=== PATIENT | female | born 1980 | race Caucasian/White ===

== ENCOUNTER 2016-06-15 16:22 | Emergency (ER) | payer OTHER ==
[2016-06-15] MEDS ORDERED: ONDANSETRON 4 MG TAB.RAPDIS PO ONE (17:47)
--- NOTE | 2016-06-15 17:48 | ER Document Report ---
ED Medical Screen (RME) - General Chief Complaint: Dental Injury Stated Complaint: HEADACHE AND MOUTH PAIN Mode of Arrival: Wheelchair Information source: Patient Notes: Patient complains of left-sided facial pain due to a broken tooth. Patient complains of headache, dizziness with nausea and vomiting 2 episodes. Headache pain started suddenly yesterday. Patient has been taking an antibiotic to treat a sinus infection as well as pain medicine given to her from her dentist. hx: Crohn's TRAVEL OUTSIDE OF THE [place] IN LAST 30 DAYS: No - Related Data Allergies/Adverse Reactions: doxycycline [Doxycycline] Allergy (Severe, Verified 09/23/15 11:55) Anaphylaxis ciprofloxacin [From Cipro] Allergy (Mild, Verified 09/23/15 11:55) Hives ciprofloxacin HCl [From Cipro] Allergy (Mild, Verified 09/23/15 11:55) Hives levofloxacin [From Levaquin] Allergy (Mild, Verified 09/23/15 11:55) muscle cramps Metronidazole HCl [From Flagyl] Allergy (Mild, Verified 09/23/15 11:55) VOMITING sulfamethoxazole [From Bactrim] Allergy (Mild, Verified 09/23/15 11:55) Hives trimethoprim [From Bactrim] Allergy (Mild, Verified 09/23/15 11:55) Hives metronidazole [Metronidazole] Adverse Reaction (Mild, Verified 09/23/15 11:55) Nausea Past Medical History - Social History Family history: Arthritis, CAD, CVA, DM, Hyperlipidemia, Hypertension Pulmonary Medical History: Reports: Hx Asthma, Hx Bronchitis Denies: Hx Tuberculosis Neurological Medical History: Reports: Hx Migraine Renal/ Medical History: Reports: Hx Ovarian Cysts GI Medical History: Reports: Hx Crohn's Disease, Hx Gastritis, Hx Gastroesophageal Reflux Disease, Hx Hiatal Hernia, Hx Irritable Bowel Musculoskeltal Medical History: Reports Hx Fibromyalgia Psychiatric Medical History: Reports: Hx Anxiety, Hx Depression Infectious Medical History: Reports: Hx C-Diff Past Surgical History: Reports: Hx Appendectomy - 02/16/2015, Hx Nose Surgery - 2X sinus, Hx Oral Surgery, Hx Tonsillectomy - Immunizations Immunizations up to date: Yes Hx Diphtheria, Pertussis, Tetanus Vaccination: Yes - already received Physical Exam - Vital signs Vitals: Temp Pulse Resp BP Pulse Ox 97.5 F 99 20 115/68 100 06/15/16 16:38 06/15/16 16:38 06/15/16 16:38 06/15/16 16:38 06/15/16 16:38 - Neurological Cognition: Normal Carrie Coma Scale Eye Opening: Spontaneous Notrees Coma Scale Verbal: Oriented Carrie Coma Scale Motor: Obeys Commands Carrie Coma Scale Total: 15 Course - Vital Signs Vital signs: Temp Pulse Resp BP Pulse Ox 97.5 F 99 20 115/68 100 06/15/16 16:38 06/15/16 16:38 06/15/16 16:38 06/15/16 16:38 06/15/16 16:38
[2016-06-15 18:54] LABS: ABSOLUTE BASOPHILS # (AUTO) 0.1 10^3/uL (0.0-0.2); ABSOLUTE LYMPHOCYTES (AUTO) 1.5 10^3/uL (0.5-4.7); ABSOLUTE MONOCYTES (AUTO) 0.6 10^3/uL (0.1-1.4); ABSOLUTE NEUT (AUTO) 12.7 10^3/uL (1.7-8.2); BASOPHILS % (AUTO) 0.4 % (0-2); EOSINOPHILS % (AUTO) 0.2 % (0-6); HEMATOCRIT 35.1 % (36.0-47.0); HEMOGLOBIN 11.5 g/dL (12.0-15.5); HGB HCT DIFFERENCE -0.6; LYMPHOCYTES % (AUTO) 9.8 % (13-45); MEAN CORPUSCULAR HEMOGLOBIN 22.1 pg (27.0-33.4); MEAN CORPUSCULAR HGB CONC 32.6 g/dL (32.0-36.0); MEAN CORPUSCULAR VOLUME 68 fl (80-97); RED BLOOD COUNT 5.18 10^6/uL (3.72-5.28); RED CELL DISTRIBUTION WIDTH 16.1 % (11.5-14.0); SEGMENTED NEUTROPHILS % (AUTO) 85.6 % (42-78); WHITE BLOOD COUNT 14.8 10^3/uL (4.0-10.5)
[2016-06-15 19:10] LABS: ALANINE AMINOTRANSFERASE 99 U/L (9-52); ALBUMIN 4.6 g/dL (3.5-5.0); ALKALINE PHOSPHATASE 68 U/L (38-126); ANION GAP 14 (5-19); ASPARTATE AMINO TRANSFERASE 62 U/L (14-36); BILIRUBIN,TOTAL 0.5 mg/dL (0.2-1.3); BLOOD UREA NITROGEN 12 mg/dL (7-20); CALCIUM 9.1 mg/dL (8.4-10.2); CARBON DIOXIDE 25 mmol/L (22-30); CHLORIDE 99 mmol/L (98-107); CREATININE RESULT 0.52 mg/dL (0.52-1.25); GLUCOSE 91 mg/dL (75-110); POTASSIUM 4.1 mmol/L (3.6-5.0); SODIUM 137.5 mmol/L (137-145); TOTAL PROTEIN 7.5 g/dL (6.3-8.2)
[2016-06-15] MEDS ORDERED: ONDANSETRON ODT 4 MG TAB (6 TAB/DSPK) PO PRN (23:28)
--- NOTE | 2016-06-15 23:28 | ER Document Report ---
ED General - General Chief Complaint: Head and mouth pain Stated Complaint: HEADACHE AND MOUTH PAIN Mode of Arrival: Wheelchair Notes: Patient is a 35 year old female who presents with complaint of nasal congestion , toothache, and some sinus pressure. She says that her doctor placed her on Ceftin ear for the tooth infection and sinus pressure. She says that her tooth started her more and chest pressure going into the left sinus behind her left ear. She is scheduled to see an oral surgeon her shortly to have the tooth drilled. The tooth has a piece recurrent canal which is opened up and now has her going into the tooth causing severe pain. No fevers. No vomiting. No difficulty breathing or swallowing. No facial swelling. TRAVEL OUTSIDE OF THE [place] IN LAST 30 DAYS: No - Related Data Allergies/Adverse Reactions: doxycycline [Doxycycline] Allergy (Severe, Verified 09/23/15 11:55) Anaphylaxis ciprofloxacin [From Cipro] Allergy (Mild, Verified 09/23/15 11:55) Hives ciprofloxacin HCl [From Cipro] Allergy (Mild, Verified 09/23/15 11:55) Hives levofloxacin [From Levaquin] Allergy (Mild, Verified 09/23/15 11:55) muscle cramps Metronidazole HCl [From Flagyl] Allergy (Mild, Verified 09/23/15 11:55) VOMITING sulfamethoxazole [From Bactrim] Allergy (Mild, Verified 09/23/15 11:55) Hives trimethoprim [From Bactrim] Allergy (Mild, Verified 09/23/15 11:55) Hives metronidazole [Metronidazole] Adverse Reaction (Mild, Verified 09/23/15 11:55) Nausea Past Medical History - General Information source: Patient - Social History Smoking Status: Unknown if Ever Smoked Frequency of alcohol use: None Drug Abuse: None Family History: Reviewed & Not Pertinent Patient has suicidal ideation: No Patient has homicidal ideation: No Pulmonary Medical History: Reports: Hx Asthma, Hx Bronchitis Denies: Hx Tuberculosis Neurological Medical History: Reports: Hx Migraine Renal/ Medical History: Reports: Hx Ovarian Cysts GI Medical History: Reports: Hx Crohn's Disease, Hx Gastritis, Hx Gastroesophageal Reflux Disease, Hx Hiatal Hernia, Hx Irritable Bowel Musculoskeltal Medical History: Reports Hx Fibromyalgia Psychiatric Medical History: Reports: Hx Anxiety, Hx Depression Infectious Medical History: Reports: Hx C-Diff Past Surgical History: Reports: Hx Appendectomy - 02/16/2015, Hx Nose Surgery - 2X sinus, Hx Oral Surgery, Hx Tonsillectomy - Immunizations Immunizations up to date: Yes Hx Diphtheria, Pertussis, Tetanus Vaccination: Yes - already received Hx Pneumococcal Vaccination: 02/13/13 Review of Systems - Review of Systems Notes: My Normal Review Basic REVIEW OF SYSTEMS: CONSTITUTIONAL : Denies fever, chills, or sweats. Denies recent illness. EENT: Tooth pain. Sinus pressure CARDIOVASCULAR: Denies chest pain. RESPIRATORY: Denies cough, cold, or chest congestion. Denies shortness of breath, difficulty breathing, or wheezing. GASTROINTESTINAL: Denies abdominal pain. Denies nausea, vomiting, or diarrhea. Denies constipation. MUSCULOSKELETAL: Denies neck or back pain or joint pain or swelling. SKIN: Denies rash or skin lesions. NEUROLOGICAL: Denies altered mental status or loss of consciousness. Denies headache. Denies weakness or paralysis or loss of use of either side. Denies problems with gait or speech. Denies sensory or motor loss. ALL OTHER SYSTEMS REVIEWED AND NEGATIVE. Physical Exam - Vital signs Vitals: Temp Pulse Resp BP Pulse Ox 97.5 F 99 20 115/68 100 06/15/16 16:38 06/15/16 16:38 06/15/16 16:38 06/15/16 16:38 06/15/16 16:38 - Notes Notes: General Appearance: Well nourished, alert, cooperative, no acute distress, moderate obvious discomfort. Vitals: reviewed, See vital signs table. Head: no swelling or tenderness to the head Eyes: PERRL, EOMI, Conjuctiva clear Mouth: Left upper premolar has a hole in the tooth and has some dental caries associated with it. No gingival swelling or inflammation. Throat: No tonsillar inflammation, No airway obstruction, No lymphadenopathy Neck: Supple, no neck tenderness, No thyromegaly Lungs: No wheezing, No rales, No rhonci, No accessory muscle use, good air exchange bilaterally. Heart: Normal rate, Regular rythm, No murmur, no rub Extremities: strength 5/5 in all extremities, good pulses in all extremities, no swelling or tenderness in the extremities, no edema. Skin: warm, dry, appropriate color, no rash Neuro: speech clear, oriented x 3, normal affect, responds appropriately to questions. Cranial nerves II through XII are intact. Distal sensation intact. Patient moves all extremities without difficulty. Course - Vital Signs Vital signs: Temp Pulse Resp BP Pulse Ox 98.1 F 72 16 111/71 99 06/15/16 22:52 06/15/16 22:52 06/15/16 22:52 06/15/16 22:52 06/15/16 22:52 - Laboratory Result Diagrams: 06/15/16 18:40 06/15/16 18:40 Laboratory results interpreted by me: 06/15/16 06/15/16 18:40 18:40 WBC 14.8 H Hgb 11.5 L Hct 35.1 L MCV 68 L MCH 22.1 L RDW 16.1 H Seg Neutrophils % 85.6 H Lymphocytes % 9.8 L Absolute Neutrophils 12.7 H AST 62 H ALT 99 H - Transfer of Care Notes: 06/16/16 06:25 CT scan was obtained in triage and some mild sinus disease without any air- fluid levels. Otherwise discussed negative. Will place patient back on software. I will give her pain medicine. I encourage her to follow closely with her oral surgeon to have the tooth removed. I think until the tooth is removed she will continue to have pressure into her sinuses. Patient does have a history of C. difficile and therefore informed her that if she starts having any diarrhea she must stop the antibiotic immediately. Patient currently return to ER shows a facial swelling, fevers, or feels unwell. Patient agrees with plan will be discharged home. Dictation of this chart was performed using voice recognition software; therefore, there may be some unintended grammatical errors. Discharge - Discharge Clinical Impression: Toothache, Sinus disease Headache Qualifiers: Headache type: unspecified Headache chronicity pattern: episodic headache Intractability: not intractable Qualified Code(s): R51 - Headache Condition: Good Disposition: HOME, SELF-CARE Additional Instructions: Please continue taking the Zyrtec D. Please continue the cfedinir. Please stop taking the antibiotic if you develop any diarrhea. Please follow up with your dentist as soon as possible to have your tooth removed. Please return to the ER immediately if you develop facial swelling, difficulty breathing, or difficulty swallowing. Prescriptions: Cefdinir 300 mg PO Q12 #10 capsule Ondansetron [Zofran Odt 4 mg Tablet] 1 tab PO Q4H PRN #15 tab.rapdis PRN Reason: For Nausea/Vomiting
[2016-06-15 23:50] VITALS: BP 111/71
== END 2016-06-15 23:30 | disposition home or self-care (01) ==
LOC: ER 16:22
DX: J32.9 Chronic sinusitis, unspecified (principal); K04.7 Periapical abscess without sinus; K02.9 Dental caries, unspecified; K08.89 Other specified disorders of teeth and supporting structures; R51 Headache; R09.81 Nasal congestion; J45.909 Unspecified asthma, uncomplicated; Z87.892 Personal history of anaphylaxis; Z88.1 Allergy status to other antibiotic agents; Z98.890 Other specified postprocedural states
CPT/HCPCS: 99284; 36415; 84703; 85025; 80053; 70450; S0119

== ENCOUNTER → 2016-08-20 | Outpatient (CLI) | payer MEDICAID, OTHER | LOC: RAD 16:05 | PROVIDERS: ATTEND Internal Medicine | DX: G35 Multiple sclerosis (principal) | CPT/HCPCS: 70551 ==

== ENCOUNTER → 2017-03-04 | Outpatient (CLI) | payer OTHER ==
[2017-03-04 17:58] LABS: HEMATOCRIT 38.2 % (36.0-47.0); HEMOGLOBIN 13.1 g/dL (12.0-15.5); HGB HCT DIFFERENCE 1.1; MEAN CORPUSCULAR HEMOGLOBIN 27.6 pg (27.0-33.4); MEAN CORPUSCULAR HGB CONC 34.3 g/dL (32.0-36.0); MEAN CORPUSCULAR VOLUME 81 fl (80-97); RED BLOOD COUNT 4.74 10^6/uL (3.72-5.28); RED CELL DISTRIBUTION WIDTH 14.4 % (11.5-14.0); WHITE BLOOD COUNT 13.9 10^3/uL (4.0-10.5)
[2017-03-04 18:33] LABS: ALANINE AMINOTRANSFERASE 30 U/L (9-52); ALBUMIN 4.1 g/dL (3.5-5.0); ALKALINE PHOSPHATASE 54 U/L (38-126); ANION GAP 12 (5-19); ASPARTATE AMINO TRANSFERASE 24 U/L (14-36); BILIRUBIN,DIRECT 0.3 mg/dL (0.0-0.4); BILIRUBIN,TOTAL 0.3 mg/dL (0.2-1.3); BLOOD UREA NITROGEN 12 mg/dL (7-20); CALCIUM 9.3 mg/dL (8.4-10.2); CARBON DIOXIDE 28 mmol/L (22-30); CHLORIDE 99 mmol/L (98-107); CREATININE RESULT 0.73 mg/dL (0.52-1.25); GLUCOSE 96 mg/dL (75-110); POTASSIUM 3.8 mmol/L (3.6-5.0); SODIUM 138.6 mmol/L (137-145); TOTAL PROTEIN 6.7 g/dL (6.3-8.2)
[2017-03-04 18:37] LABS: ALANINE AMINOTRANSFERASE 32 U/L (9-52); ALBUMIN 4.2 g/dL (3.5-5.0); ALKALINE PHOSPHATASE 57 U/L (38-126); ANION GAP 11 (5-19); ASPARTATE AMINO TRANSFERASE 25 U/L (14-36); BILIRUBIN,DIRECT 0.3 mg/dL (0.0-0.4); BILIRUBIN,TOTAL 0.3 mg/dL (0.2-1.3); BLOOD UREA NITROGEN 13 mg/dL (7-20); CALCIUM 9.3 mg/dL (8.4-10.2); CARBON DIOXIDE 28 mmol/L (22-30); CHLORIDE 99 mmol/L (98-107); CREATININE RESULT 0.71 mg/dL (0.52-1.25); GLUCOSE 96 mg/dL (75-110); POTASSIUM 3.8 mmol/L (3.6-5.0); SODIUM 138.4 mmol/L (137-145); TOTAL PROTEIN 6.9 g/dL (6.3-8.2)
[2017-03-04 18:38] LABS: C-REACTIVE PROTEIN < 5.0 mg/L (<10.0)
[2017-03-04 18:49] LABS: FREE T3 4.65 pg/mL (2.77-5.27)
[2017-03-04 19:02] LABS: THYROID STIMULATING HORMONE 1.25 uIU/mL (0.47-4.68)
[2017-03-07 11:24] LABS: CYCLIC CITRUL PEPTIDE IGG/A AB 5 units (0-19)
== END ==
LOC: OD 16:26
PROVIDERS: ATTEND Family Medicine
DX: M25.50 Pain in unspecified joint (principal); R53.83 Other fatigue; M79.1 Myalgia; K51.90 Ulcerative colitis, unspecified, without complications
CPT/HCPCS: 36415; 80053; 82533; 84439; 84443; 84481; 85027; 85652; 86038; 86140; 86200; 86430

== ENCOUNTER 2017-03-20 01:35 | Emergency (ER) | payer OTHER ==
[2017-03-20] MEDS ORDERED: METOCLOPRAMIDE HCL INJ/PF 10 MG/2 ML SDV IV ONE (03:00)
[2017-03-20] MEDS ORDERED: NORMAL SALINE 1000 ML 1,000 ML IV ONE (03:01)
[2017-03-20] MEDS ORDERED: DIPHENHYDRAMINE HCL 50 MG/ML VIAL IV ONE (03:01)
[2017-03-20] MEDS ORDERED: MORPHINE SULFATE 10 MG/ML INJ IV ONE (03:01)
--- NOTE | 2017-03-20 03:01 | ER Document Report ---
ED Headache - General Chief Complaint: Headache Stated Complaint: HEADACHE Time Seen by Provider: 03/20/17 02:47 Notes: Patient is a 36-year-old female comes emergency department for chief complaint of headache, she states that it began earlier today and she cannot get rid of it. She states that she actually gets frequent headaches, she gets bad headaches about twice a month including one similar to tonight. She also states that she has some sinus congestion and specifically has a plugged left ear, she states she has this constantly and she has an ENT referral for this already. Patient also states that she has known cervical spine degenerative disease and she actually is obtaining injections for this, has had an MRI for this. She denies any recent injury, denies fever, denies focal numbness or weakness. She does report 2 episodes of vomiting, photophobia, and throbbing headache. TRAVEL OUTSIDE OF THE [place] IN LAST 30 DAYS: No - Related Data Allergies/Adverse Reactions: doxycycline [Doxycycline] Allergy (Severe, Verified 09/23/15 11:55) Anaphylaxis ciprofloxacin [From Cipro] Allergy (Mild, Verified 09/23/15 11:55) Hives ciprofloxacin HCl [From Cipro] Allergy (Mild, Verified 09/23/15 11:55) Hives levofloxacin [From Levaquin] Allergy (Mild, Verified 09/23/15 11:55) muscle cramps Metronidazole HCl [From Flagyl] Allergy (Mild, Verified 09/23/15 11:55) VOMITING sulfamethoxazole [From Bactrim] Allergy (Mild, Verified 09/23/15 11:55) Hives trimethoprim [From Bactrim] Allergy (Mild, Verified 09/23/15 11:55) Hives metronidazole [Metronidazole] Adverse Reaction (Mild, Verified 09/23/15 11:55) Nausea Past Medical History - General Information source: Patient - Social History Smoking Status: Never Smoker Frequency of alcohol use: None Drug Abuse: None Lives with: Family Family History: Reviewed & Not Pertinent Patient has suicidal ideation: No Patient has homicidal ideation: No Pulmonary Medical History: Reports: Hx Asthma, Hx Bronchitis Denies: Hx Tuberculosis Neurological Medical History: Reports: Hx Migraine Renal/ Medical History: Reports: Hx Ovarian Cysts. Denies: Hx Peritoneal Dialysis GI Medical History: Reports: Hx Crohn's Disease, Hx Gastritis, Hx Gastroesophageal Reflux Disease, Hx Hiatal Hernia, Hx Irritable Bowel Musculoskeltal Medical History: Reports Hx Fibromyalgia Psychiatric Medical History: Reports: Hx Anxiety, Hx Depression Infectious Medical History: Reports: Hx C-Diff Past Surgical History: Reports: Hx Appendectomy - 02/16/2015, Hx Nose Surgery - 2X sinus, Hx Oral Surgery, Hx Tonsillectomy - Immunizations Immunizations up to date: Yes Hx Diphtheria, Pertussis, Tetanus Vaccination: Yes - already received Hx Pneumococcal Vaccination: 02/13/13 Review of Systems - Review of Systems Constitutional: No symptoms reported EENT: See HPI Cardiovascular: No symptoms reported Respiratory: No symptoms reported Gastrointestinal: No symptoms reported Genitourinary: No symptoms reported Female Genitourinary: No symptoms reported Musculoskeletal: No symptoms reported Skin: No symptoms reported Hematologic/Lymphatic: No symptoms reported Neurological/Psychological: See HPI Physical Exam - Vital signs Vitals: Temp Pulse Resp BP Pulse Ox 97.6 F 92 16 120/89 H 100 03/20/17 01:39 03/20/17 01:39 03/20/17 01:39 03/20/17 01:39 03/20/17 01:39 Interpretation: Normal - General General appearance: Alert, Other - Patient appears mildly uncomfortable but is not in severe distress - HEENT Head: Normocephalic, Atraumatic Eyes: Normal Conjunctiva: Normal Extraocular movements intact: Yes Eyelashes: Normal Pupils: PERRL Ears: Normal External canal: Normal Tympanic membrane: Normal Sinus: Normal Nasal: Normal Mouth/Lips: Normal Mucous membranes: Normal Pharynx: Normal Neck: Normal. No: Anterior cervical chain, Meningismus - Respiratory Respiratory status: No respiratory distress Chest status: Nontender Breath sounds: Normal Chest palpation: Normal - Cardiovascular Rhythm: Regular Heart sounds: Normal auscultation Murmur: No - Abdominal Inspection: Normal Distension: No distension Bowel sounds: Normal Tenderness: Nontender Organomegaly: No organomegaly - Back Back: Normal, Nontender - Extremities General upper extremity: Normal inspection, Nontender, Normal color, Normal ROM , Normal temperature General lower extremity: Normal inspection, Nontender, Normal color, Normal ROM , Normal temperature, Normal weight bearing. No: Tavo's sign - Neurological Neuro grossly intact: Yes Cognition: Normal Orientation: AAOx4 Prentiss Coma Scale Eye Opening: Spontaneous Prentiss Coma Scale Verbal: Oriented Prentiss Coma Scale Motor: Obeys Commands Carrie Coma Scale Total: 15 Speech: Normal Motor strength normal: LUE, RUE, LLE, RLE Sensory: Normal - Psychological Associated symptoms: Normal affect, Normal mood - Skin Skin Temperature: Warm Skin Moisture: Dry Skin Color: Normal Course - Re-evaluation Re-evalutation: No tenderness over the sinuses, ENT exam is generally unremarkable despite her complaints. No nuchal rigidity. Vital signs unremarkable. Patient does appear mildly uncomfortable on initial evaluation with photophobia. Normal neurological exam. After treatment headache completely resolved. Patient smiling, asks to go home. Patient asks for a dose of dexamethasone through her IV, she states this has helped her sinuses and headaches significantly in the past. Patient has ENT and neurology and pain management follow-up all in place. Discussed return precautions, patient states understanding and agreement. - Vital Signs Vital signs: Temp Pulse Resp BP Pulse Ox 98.2 F 76 16 106/64 99 03/20/17 04:53 03/20/17 04:53 03/20/17 04:53 03/20/17 04:53 03/20/17 04:53 Discharge - Discharge Clinical Impression: Sinus congestion Headache Qualifiers: Headache type: unspecified Headache chronicity pattern: acute headache Intractability: not intractable Qualified Code(s): R51 - Headache Condition: Stable Disposition: HOME, SELF-CARE Additional Instructions: Your symptoms and response to treatment are consistent with a migraine, possibly triggered from tension headaches/ongoing cervical pains. Please follow-up with ENT in regards to your congestion and sinus/ear symptoms. Take Flonase as prescribed. Return to the emergency department for any concerning worsening symptoms including returned or severe headache, vomiting, fever, etc. Prescriptions: Fluticasone Propionate [Flonase Nasal [place] 50 Mcg/[place] 16 gm] 1 spray NASL Q12 #1 inhaler
[2017-03-20] MEDS ORDERED: DEXAMETHASONE SOD PHOS INJ 10 MG/1 ML VIAL IV ONE (04:40)
[2017-03-20 04:55] VITALS: BP 106/64
== END 2017-03-20 04:53 | disposition home or self-care (01) ==
LOC: ER 01:35
DX: R09.81 Nasal congestion (principal); R51 Headache; M50.30 Other cervical disc degeneration, unspecified cervical region
CPT/HCPCS: 99283; 96361; 96374; 96375; J2765; J2270; J7030; J1100

== ENCOUNTER 2017-08-06 23:21 | Emergency (ER) | payer OTHER ==
--- NOTE | 2017-08-07 00:23 | ER Document Report ---
ED Allergic Reaction - General Mode of Arrival: Ambulatory Information source: Patient TRAVEL OUTSIDE OF THE [place] IN LAST 30 DAYS: No <GWYN HUERTA - Last Filed: 08/07/17 01:12> <CHANTELLE IZAGUIRRE - Last Filed: 08/07/17 03:42> - General Chief Complaint: Allergic Reaction Stated Complaint: POSSIBLE ALLERGIC REACTION Time Seen by Provider: 08/06/17 23:45 Notes: Patient is a 36-year-old female that presents to the emergency department today with complaints of an allergic reaction which began at 1600 or 1700 today. Patient states she has had no new contacts with lotions, soaps, fragrances, or anything else that she can think of besides buying a coffee from a place she has never bought one from this morning. Patient states to try to stop the allergic reaction she took Augmentin, prednisone, Reglan, and Percocet. (GWYN HUERTA) - Related Data Allergies/Adverse Reactions: doxycycline [Doxycycline] Allergy (Severe, Verified 09/23/15 11:55) Anaphylaxis ciprofloxacin [From Cipro] Allergy (Mild, Verified 09/23/15 11:55) Hives ciprofloxacin HCl [From Cipro] Allergy (Mild, Verified 09/23/15 11:55) Hives levofloxacin [From Levaquin] Allergy (Mild, Verified 09/23/15 11:55) muscle cramps Metronidazole HCl [From Flagyl] Allergy (Mild, Verified 09/23/15 11:55) VOMITING sulfamethoxazole [From Bactrim] Allergy (Mild, Verified 09/23/15 11:55) Hives trimethoprim [From Bactrim] Allergy (Mild, Verified 09/23/15 11:55) Hives metronidazole [Metronidazole] Adverse Reaction (Mild, Verified 09/23/15 11:55) Nausea Past Medical History - General Information source: Patient - Social History Smoking Status: Never Smoker Cigarette use (# per day): No Frequency of alcohol use: None Drug Abuse: None Lives with: Family Family History: Reviewed & Not Pertinent Pulmonary Medical History: Reports: Hx Asthma, Hx Bronchitis Neurological Medical History: Reports: Hx Migraine Renal/ Medical History: Reports: Hx Ovarian Cysts GI Medical History: Reports: Hx Crohn's Disease, Hx Gastritis, Hx Gastroesophageal Reflux Disease, Hx Hiatal Hernia, Hx Irritable Bowel Musculoskeltal Medical History: Reports Hx Fibromyalgia Psychiatric Medical History: Reports: Hx Anxiety, Hx Depression Infectious Medical History: Reports: Hx C-Diff Past Surgical History: Reports: Hx Appendectomy - 02/16/2015, Hx Nose Surgery - 2X sinus, Hx Oral Surgery, Hx Tonsillectomy - Immunizations Immunizations up to date: Yes Hx Diphtheria, Pertussis, Tetanus Vaccination: Yes - already received Hx Pneumococcal Vaccination: 02/13/13 <GWYN HUERTA - Last Filed: 08/07/17 01:12> Review of Systems - Review of Systems Constitutional: No symptoms reported EENT: No symptoms reported Cardiovascular: See HPI, Syncope - near-syncope Respiratory: No symptoms reported Gastrointestinal: No symptoms reported Genitourinary: No symptoms reported Female Genitourinary: No symptoms reported Musculoskeletal: No symptoms reported Skin: See HPI, Rash - itchy Hematologic/Lymphatic: No symptoms reported Neurological/Psychological: No symptoms reported -: Yes All other systems reviewed and negative <GWYN HUERTA - Last Filed: 08/07/17 01:12> Physical Exam - Vital signs Interpretation: Tachycardic - General General appearance: Appears well, Alert - HEENT Head: Normocephalic, Atraumatic Eyes: Normal Pupils: PERRL Mucous membranes: Normal Pharynx: Normal. No: Erythema, Uvular edema, Potential airway comprom. - Respiratory Respiratory status: No respiratory distress Chest status: Nontender Breath sounds: Normal Chest palpation: Normal - Cardiovascular Rhythm: Regular Heart sounds: Normal auscultation Murmur: No - Abdominal Inspection: Normal Distension: No distension Bowel sounds: Normal Tenderness: Nontender Organomegaly: No organomegaly - Back Back: Normal, Nontender - Extremities General upper extremity: Normal inspection, Nontender, Normal color, Normal ROM , Normal temperature General lower extremity: Normal inspection, Nontender, Normal color, Normal ROM , Normal temperature, Normal weight bearing. No: Tavo's sign - Neurological Neuro grossly intact: Yes Cognition: Normal Orientation: AAOx4 [place] Coma Scale Eye Opening: Spontaneous [place] Coma Scale Verbal: Oriented [place] Coma Scale Motor: Obeys Commands Carrie Coma Scale Total: 15 Speech: Normal Motor strength normal: LUE, RUE, LLE, RLE Sensory: Normal - Psychological Associated symptoms: Normal affect, Normal mood - Skin Skin Temperature: Warm Skin Moisture: Dry Skin Color: Normal Skin irregularity: other - Urticaria to chin Excoriations to upper extremities , lower extremities and torso <CHANTELLE IZAGUIRRE - Last Filed: 08/07/17 03:42> - Vital signs Vitals: Temp Pulse Resp BP Pulse Ox 98.6 F 119 H 20 114/69 100 08/06/17 23:41 08/06/17 23:41 08/06/17 23:41 08/06/17 23:41 08/06/17 23:41 Course <GWYN HUERTA - Last Filed: 08/07/17 01:12> <CHANTELLE IZAGURIRE - Last Filed: 08/07/17 03:42> - Re-evaluation Re-evalutation: 08/07/17 Patient is a 36-year-old female who had an allergic reaction with urticaria to an unknown source this evening. Patient took prednisone which likely results her symptoms. She still having some itching. Patient has a few urticaria to her chin. Oropharynx is clear. Patient will be discharged home with Benadryl, famotidine, and prednisone for her allergic reaction. Also, patient with urinary symptoms. Urine is consistent with UTI. Patient will be started on Keflex for this and culture sent. Understands and agrees with plan. No flank pain nausea or vomiting. Stable for discharge. Follow-up with PMD. (CHANTELLE IZAGUIRRE) - Vital Signs Vital signs: Temp Pulse Resp BP Pulse Ox 98.2 F 98 18 116/79 100 08/07/17 01:36 08/07/17 01:36 08/07/17 01:36 08/07/17 01:36 08/07/17 01:36 - Laboratory Laboratory results interpreted by me: 08/07/17 00:38 Urine Blood LARGE H Ur Leukocyte Esterase TRACE H Discharge <GWYN HUERTA - Last Filed: 08/07/17 01:12> <CHANTELLE IZAGUIRRE - Last Filed: 08/07/17 03:42> - Discharge Clinical Impression: Allergic reaction Qualifiers: Encounter type: initial encounter Qualified Code(s): T78.40XA - Allergy, unspecified, initial encounter UTI (urinary tract infection) Qualifiers: Urinary tract infection type: site unspecified Hematuria presence: with hematuria Qualified Code(s): N39.0 - Urinary tract infection, site not specified ; R31.9 - Hematuria, unspecified; R31.9 - Hematuria, unspecified Condition: Stable Disposition: HOME, SELF-CARE Instructions: Acute Allergic Reaction ([facility]), Urinary Tract Infection ([facility]) Prescriptions: Cephalexin Monohydrate [Keflex 500 mg Capsule] 500 mg PO QID 5 Days capsule Epinephrine [Epipen 2-Pierce] 0.3 mg IM ONCE #1 ml Famotidine [Acid Cable Reeler] 20 mg PO NOW #20 tablet Prednisone 40 mg PO DAILY #6 tablet Forms: Return to Work Scribe Attestation: 08/07/17 03:42 I personally performed the services described in the documentation, reviewed and edited the documentation which was dictated to the scribe in my presence, and it accurately records my words and actions. (CHANTELLE IZAGUIRRE) Scribe Documentation - Scribe Written by Scribe:: Riley Flynn, 08/07/2017 0125 acting as scribe for :: Jarvis <GWYN HUERTA - Last Filed: 08/07/17 01:12>
[2017-08-07] MEDS ORDERED: DIPHENHYDRAMINE HCL 25 MG CAPSULE PO ONE (00:24)
[2017-08-07] MEDS ORDERED: FAMOTIDINE 20 MG TABLET PO ONE (00:24)
[2017-08-07] MEDS ORDERED: PREDNISONE 20 MG TABLET PO ONE (00:24)
[2017-08-07 00:56] LABS: APPEARANCE,URINE SLIGHTLY-CLOUDY; BILIRUBIN,URINE NEGATIVE (NEGATIVE); COLOR,URINE STRAW; GLUCOSE, URINE NEGATIVE (NEGATIVE); KETONES,URINE NEGATIVE (NEGATIVE); LEUKOCYTE ESTERASE,URINE TRACE (NEGATIVE); NITRITE,URINE NEGATIVE (NEGATIVE); PROTEIN,URINE NEGATIVE (NEGATIVE); URINE SPECIFIC GRAVITY 1.003; UROBILINOGEN,URINE NEGATIVE mg/dL (<2.0)
[2017-08-07] MEDS ORDERED: CEPHALEXIN 500 MG CAPSULE PO ONE (01:04)
[2017-08-07 01:38] VITALS: BP 116/79
== END 2017-08-07 01:38 | disposition home or self-care (01) ==
LOC: ER 23:21
DX: T78.40XA Allergy, unspecified, initial encounter (principal); N39.0 Urinary tract infection, site not specified; R31.9 Hematuria, unspecified; R55 Syncope and collapse; X58.XXXA Exposure to other specified factors, initial encounter; Z88.3 Allergy status to other anti-infective agents
CPT/HCPCS: 99283; 87086; 81025; 81001; J7512

== ENCOUNTER 2017-09-23 21:58 | Emergency (ER) | payer OTHER ==
[2017-09-23 23:10] LABS: APPEARANCE,URINE CLEAR; BILIRUBIN,URINE NEGATIVE (NEGATIVE); COLOR,URINE YELLOW; GLUCOSE, URINE NEGATIVE (NEGATIVE); KETONES,URINE NEGATIVE (NEGATIVE); LEUKOCYTE ESTERASE,URINE TRACE (NEGATIVE); NITRITE,URINE NEGATIVE (NEGATIVE); PROTEIN,URINE NEGATIVE (NEGATIVE); UROBILINOGEN,URINE NEGATIVE mg/dL (<2.0)
[2017-09-23 23:21] LABS: ALANINE AMINOTRANSFERASE 44 U/L (9-52); ALBUMIN 4.6 g/dL (3.5-5.0); ALKALINE PHOSPHATASE 48 U/L (38-126); ANION GAP 14 (5-19); ASPARTATE AMINO TRANSFERASE 28 U/L (14-36); BILIRUBIN,DIRECT 0.2 mg/dL (0.0-0.4); BILIRUBIN,TOTAL 0.2 mg/dL (0.2-1.3); BLOOD UREA NITROGEN 13 mg/dL (7-20); CALCIUM 9.8 mg/dL (8.4-10.2); CARBON DIOXIDE 22 mmol/L (22-30); CHLORIDE 105 mmol/L (98-107); GLUCOSE 115 mg/dL (75-110); POTASSIUM 4.3 mmol/L (3.6-5.0); SODIUM 141.4 mmol/L (137-145); TOTAL PROTEIN 7.2 g/dL (6.3-8.2)
[2017-09-23 23:44] LABS: ABSOLUTE LYMPHOCYTES (AUTO) 2.2 10^3/uL (0.5-4.7); ABSOLUTE NEUT (AUTO) 16.5 10^3/uL (1.7-8.2); BASOPHILS % (AUTO) 0.1 % (0-2); HEMATOCRIT 35.7 % (36.0-47.0); HEMOGLOBIN 11.9 g/dL (12.0-15.5); LYMPHOCYTES % (AUTO) 11.2 % (13-45); MEAN CORPUSCULAR HEMOGLOBIN 26.2 pg (27.0-33.4); MEAN CORPUSCULAR HGB CONC 33.2 g/dL (32.0-36.0); MEAN CORPUSCULAR VOLUME 79 fl (80-97); MONOCYTES % (AUTO) 5.3 % (3-13); PLATELET COUNT 413 10^3/uL (150-450); RED BLOOD COUNT 4.52 10^6/uL (3.72-5.28); RED CELL DISTRIBUTION WIDTH 13.9 % (11.5-14.0); SEGMENTED NEUTROPHILS % (AUTO) 83.4 % (42-78); TOTAL CELLS COUNTED % (AUTO) 100 %; WHITE BLOOD COUNT 19.7 10^3/uL (4.0-10.5)
--- NOTE | 2017-09-24 01:18 | ER Document Report ---
ED General - General Chief Complaint: Other Stated Complaint: PAIN ALL OVER Time Seen by Provider: 09/24/17 00:41 TRAVEL OUTSIDE OF THE [place] IN LAST 30 DAYS: No - HPI Notes: Patient is a 36-year-old female with a history of Crohn's, anxiety, depression who presents to the ED complaining of intermittent abdominal cramping over the last 4 days. Patient states that she also has some left flank pain on occasion. Patient has been seen by her primary care provider over the last couple days and has been given Rocephin as well as fluids for a possible Crohn' s flareup. Patient has also been receiving steroid injections and oral steroids. Patient was found to have a urine positive yesterday. Patient states that she has been constipated over the last week and felt as though her abdomen was distended early during her cramping onset. Patient states that her distention has since improved. She was recently treated for UTI as well. She has been eating and drinking without difficulty, but does have a decreased p.o. intake. Patient has not noticed any vaginal bleeding, but notes that there may be some vaginal discharge. Patient is in a monogamous relationship and is not concerned about any STD or STI at this time. Patient does have an extensive allergy list. No other concerns or complaints at this time. Denies any headache, fever, neck pain, URI, sore throat, chest pain, palpitations, syncope, cough, shortness of breath, wheeze, dyspnea, nausea /vomiting/diarrhea, urinary retention, dysuria, hematuria, loss of control of bowel or bladder, numbness/tingling, saddle anesthesia, muscle paralysis/ weakness, or rash. - Related Data Allergies/Adverse Reactions: doxycycline [Doxycycline] Allergy (Severe, Verified 09/23/17 22:15) Anaphylaxis ciprofloxacin [From Cipro] Allergy (Mild, Verified 09/23/17 22:15) Hives ciprofloxacin HCl [From Cipro] Allergy (Mild, Verified 09/23/17 22:15) Hives levofloxacin [From Levaquin] Allergy (Mild, Verified 09/23/17 22:15) muscle cramps Metronidazole HCl [From Flagyl] Allergy (Mild, Verified 09/23/17 22:15) VOMITING sulfamethoxazole [From Bactrim] Allergy (Mild, Verified 09/23/17 22:15) Hives trimethoprim [From Bactrim] Allergy (Mild, Verified 09/23/17 22:15) Hives metronidazole [Metronidazole] Adverse Reaction (Mild, Verified 09/23/17 22:15) Nausea Past Medical History - Social History Smoking Status: Never Smoker Family History: Reviewed & Not Pertinent Pulmonary Medical History: Reports: Hx Asthma, Hx Bronchitis Denies: Hx Tuberculosis Neurological Medical History: Reports: Hx Migraine Renal/ Medical History: Reports: Hx Ovarian Cysts. Denies: Hx Peritoneal Dialysis GI Medical History: Reports: Hx Crohn's Disease, Hx Gastritis, Hx Gastroesophageal Reflux Disease, Hx Hiatal Hernia, Hx Irritable Bowel Musculoskeltal Medical History: Reports Hx Fibromyalgia Psychiatric Medical History: Reports: Hx Anxiety, Hx Depression Infectious Medical History: Reports: Hx C-Diff Past Surgical History: Reports: Hx Appendectomy - 02/16/2015, Hx Nose Surgery - 2X sinus, Hx Oral Surgery, Hx Tonsillectomy - Immunizations Immunizations up to date: Yes Hx Diphtheria, Pertussis, Tetanus Vaccination: Yes - already received Hx Pneumococcal Vaccination: 02/13/13 Review of Systems - Review of Systems -: Yes All other systems reviewed and negative Physical Exam - Vital signs Vitals: Temp Pulse Resp BP Pulse Ox 98.6 F 112 H 16 119/74 100 09/23/17 22:19 09/23/17 22:19 09/23/17 22:19 09/23/17 22:19 09/23/17 22:19 - Notes Notes: PHYSICAL EXAMINATION: GENERAL: Well-appearing, well-nourished and in no acute distress. A&ox4. Answers questions appropriately. moves around comfortably. HEAD: Atraumatic, normocephalic. EYES: Pupils equal round and reactive to light, extraocular movements intact, conjunctiva are normal. ENT: EAC's clear bilaterally. TMs intact bilaterally without erythema fluid or perforation. No tonsillar hypertrophy or erythema. NECK: Normal range of motion, supple without lymphadenopathy LUNGS: Breath sounds clear to auscultation bilaterally and equal. No wheezes rales or rhonchi. HEART: Regular rate and rhythm without murmurs ABDOMEN: Soft, nontender, nondistended abdomen. No guarding, no rebound. No masses appreciated. Normal bowel sounds present. CVA tenderness negative bilaterally. Female : No inguinal adenopathy. External genitalia without erythema, lesions , or masses. Vaginal mucosa pink with scant white discharge. Cervix parous, pink, and without discharge. Uterus is smooth. No adnexal tenderness. Musculoskeletal: FROM to passive/active. Strength 5+/5. Extremities: No cyanosis/clubbing/edema b/l. Peripheral pulses 2+. Capillary refill less than 3 seconds. NEUROLOGICAL: Normal speech, normal gait. Normal sensory, motor exams PSYCH: Normal mood, normal affect. SKIN: Warm, Dry, normal turgor, no rashes or lesions noted. Course - Re-evaluation Re-evalutation: 09/24/17 04:56 Reviewed this case with Dr. Hampton who is in agreement with discharge/plan: Patient is an afebrile, well-hydrated, 36-year-old female who presents to the ED with abdominal pain, unspecified, and being approximately 6 weeks with a subchorionic hemorrhage. Vitals are acceptable. PE is otherwise unremarkable. Patient has no significant tachycardia, tachypnea, or hypoxia. Her abdomen is soft and nontender throughout upon re-evaluation. Patient is tolerating p.o. without any difficulties. CBC, CMP, lipase, urinalysis were unremarkable for any acute pathology. CBC did show an elevated white blood cell count, but patient has been receiving steroids this week. HCG is consistent with the transvaginal ultrasound findings with a living intrauterine . TVUS did show a subchorionic hemorrhage. Pelvic exam was generally unremarkable for acute pathology. Wet mount and Chlamydia/gonorrhea tests were negative. No other labs or imaging warranted at this time based on H&P. Low suspicion/risk for acute appendicitis, bowel obstruction, acute cholecystitis, acute cholangitis, perforated diverticulitis, incarcerated hernia, pancreatitis , perforated ulcer, peritonitis, sepsis, pelvic inflammatory disease, ectopic , tubo-ovarian abscess, ovarian torsion, or other systemic emergent condition at this time. Patient is aware that her condition can change from initial presentation and she needs to monitor symptoms closely and seek medical attention if any acute changes. I will send her home with a prescription for Zofran. Advised patient that she needs to get off of her mental health medications, but needs to do so in an appropriate manner and with the aid of her PCM. Conservative measures otherwise for symptoms. Recheck with OBGYN in 2 -3 days. Recheck with your PCM in 2-3 days. Return to the ED with any worsening/concerning symptoms otherwise as reviewed in discharge. Patient is in agreement. - Vital Signs Vital signs: Temp Pulse Resp BP Pulse Ox 98.6 F 112 H 16 119/74 100 09/23/17 22:19 09/23/17 22:19 09/23/17 22:19 09/23/17 22:19 09/23/17 22:19 - Laboratory Result Diagrams: 09/23/17 22:40 09/23/17 22:40 Laboratory results interpreted by me: 09/23/17 09/23/17 09/23/17 22:40 22:40 22:40 WBC 19.7 H Hgb 11.9 L Hct 35.7 L MCV 79 L MCH 26.2 L Seg Neutrophils % 83.4 H Lymphocytes % 11.2 L Absolute Neutrophils 16.5 H Glucose 115 H Beta HCG, Quant Urine Blood SMALL H Ur Leukocyte Esterase TRACE H 09/23/17 22:40 WBC Hgb Hct MCV MCH Seg Neutrophils % Lymphocytes % Absolute Neutrophils Glucose Beta HCG, Quant 96089.00 H Urine Blood Ur Leukocyte Esterase Procedures - Pelvic Exam Pelvic exam Time completed: 01:35 Cultures obtained: Yes Wet prep obtained: Yes Bimanual exam performed: Yes - neg Witnessed by: female nurse Discharge - Discharge Clinical Impression: Qualifiers: Weeks of gestation: less than 8 weeks Qualified Code(s): Z3A.01 - Less than 8 weeks gestation of Unspecified abdominal pain Qualifiers: Abdominal location: lower abdomen, unspecified Qualified Code(s): R10.30 - Lower abdominal pain, unspecified Subchorionic hemorrhage in first trimester Qualifiers: Fetus number: single or unspecified fetus Qualified Code(s): O41.8X10 - Other specified disorders of amniotic fluid and membranes, first trimester, not applicable or unspecified; O46.8X1 - Other antepartum hemorrhage, first trimester; O46.8X1 - Other antepartum hemorrhage, first trimester Condition: Stable Disposition: HOME, SELF-CARE Instructions: ([facility]), Bleeding During Early ([facility]), Abdominal Pain ([facility]), Observation for Appendicitis ([facility]) Additional Instructions: Maintain adequate fluid and food intake [place]e diet ([employer] Bananas, rice, apples, toast, etc Zofran as needed tylenol if needed Monitor for any worsening symptoms He will need to wean off of your medications appropriately that are unsafe for with the aid of your primary care provider. Make sure you are staying hydrated enough to urinate and have normal BM's Recheck with your PCM and ALLOCATIONS CLERK in 2-3 days Consider consult with Gastroenterology for ongoing/worsening symptoms Return to the ED with any worsening symptoms and/or development of fever, headache, chest pain, palpitations, syncope, shortness of breath, trouble breathing, abdominal pain, n/v/d, blood in stool/urine, weakness, or other worsening symptoms that are concerning to you. Prescriptions: Ondansetron [Zofran Odt 4 mg Tablet] 1 - 2 tab PO Q4H PRN #15 tab.rapdis PRN Reason: For Nausea/Vomiting Referrals: [facility] [Provider Group] - 09/28/17 GIN MATHEWS PA-C [PHYSICIAN CS ASSOCIATE] - 09/25/17
[2017-09-24 02:30] LABS: T.VAGINALIS (WET MOUNT) NO TRICHOMONAS SEEN; YEAST (WET MOUNT) NO YEAST SEEN
[2017-09-24 02:31] LABS: EPITHELIALS (WET MOUNT) 3+ EPITHELIALS SEEN; RBCS (WET MOUNT) RARE RBCS SEEN; WBCS (WET MOUNT) RARE WBCS SEEN
--- NOTE | 2017-09-24 03:12 | RADIOLOGY REPORT (SQ) ---
EXAM DESCRIPTION: U/S OB TRANSVAG W/DOPPLER CLINICAL HISTORY: 36 years, Female, pain/ COMPARISON: None. TECHNIQUE: Transvaginal. LIMITATIONS: None. FINDINGS: Living intrauterine fetus measures 6w2d with VINICIO of 05/18/18 and cardiac activity of 120 beats per minute. Omer-rump length is 0.5 cm. There is a 2.5 x 1.6 x 0.7 cm subchorionic hemorrhage. Cervical length is 2.4 cm. 4.2 x 3.3 x 2.9 cm right ovary contains a likely 2.7 cm corpus luteum. 3.7 cm left ovary is unremarkable. No significant free fluid. IMPRESSION: Living intrauterine fetus measures 6w2d with VINICIO of 05/18/18; there is a 2.5 cm perigestational hemorrhage.
[2017-09-24 03:53] LABS: CHLAM PCR NOT DETECTED (NOT DETECT); GON PCR NOT DETECTED (NOT DETECT)
[2017-09-24 06:22] VITALS: BP 105/57
== END 2017-09-24 05:22 | disposition home or self-care (01) ==
LOC: ER 21:58
DX: O99.611 Diseases of the digestive system complicating pregnancy, first trimester (principal); K59.00 Constipation, unspecified; O20.8 Other hemorrhage in early pregnancy; O26.891 Other specified pregnancy related conditions, first trimester; R10.9 Unspecified abdominal pain; O99.111 Other diseases of the blood and blood-forming organs and certain disorders involving the immune mechanism complicating pregnancy, first trimester; D72.829 Elevated white blood cell count, unspecified; O99.511 Diseases of the respiratory system complicating pregnancy, first trimester; J45.909 Unspecified asthma, uncomplicated; Z3A.01 Less than 8 weeks gestation of pregnancy; Z87.19 Personal history of other diseases of the digestive system; Z87.440 Personal history of urinary (tract) infections; Z88.1 Allergy status to other antibiotic agents; Z87.42 Personal history of other diseases of the female genital tract; Z90.49 Acquired absence of other specified parts of digestive tract
CPT/HCPCS: 36415; 76817; 80053; 81001; 83690; 84702; 85025; 87210; 87491; 87591; 93976; 99284

== ENCOUNTER 2017-09-29 19:33 | Emergency (ER) | payer OTHER ==
--- NOTE | 2017-09-29 20:22 | ER Document Report ---
ED General - General Chief Complaint: Abdominal Pain Stated Complaint: ABDOMINAL PAIN Time Seen by Provider: 09/29/17 19:59 Notes: Patient is a 7 week 36-year-old female who returns emergency department today complaining of concern for Crohn's flare. Patient states that she has been in and out of [facility] for the past 2 weeks being treated with intermittent 2 day courses of steroids and IV Rocephin. She states that she was referred to the emergency department today due to her persistent elevated diabetes WBC count. She denies any diarrhea, weight loss, nausea, vomiting, melena, fevers or chills. She states that she has not followed up with her leak gang supervisor regarding this. TUTORIAL LABORATORY SUPERVISOR is with [facility] Primary care is with [facility] Gastroenterology in the past is with Dr. Morocho Past medical history significant for recurrent UTIs that she follows with a technical agronomist with, asthma, migraines, cervical degenerative disc disease, sciatica TRAVEL OUTSIDE OF THE [place] IN LAST 30 DAYS: No - Related Data Allergies/Adverse Reactions: doxycycline [Doxycycline] Allergy (Severe, Verified 09/23/17 22:15) Anaphylaxis ciprofloxacin [From Cipro] Allergy (Mild, Verified 09/23/17 22:15) Hives ciprofloxacin HCl [From Cipro] Allergy (Mild, Verified 09/23/17 22:15) Hives levofloxacin [From Levaquin] Allergy (Mild, Verified 09/23/17 22:15) muscle cramps Metronidazole HCl [From Flagyl] Allergy (Mild, Verified 09/23/17 22:15) VOMITING sulfamethoxazole [From Bactrim] Allergy (Mild, Verified 09/23/17 22:15) Hives trimethoprim [From Bactrim] Allergy (Mild, Verified 09/23/17 22:15) Hives metronidazole [Metronidazole] Adverse Reaction (Mild, Verified 09/23/17 22:15) Nausea Past Medical History - Social History Smoking Status: Never Smoker Family History: Reviewed & Not Pertinent Pulmonary Medical History: Reports: Hx Asthma, Hx Bronchitis Denies: Hx Tuberculosis Neurological Medical History: Reports: Hx Migraine Renal/ Medical History: Reports: Hx Ovarian Cysts. Denies: Hx Peritoneal Dialysis GI Medical History: Reports: Hx Crohn's Disease, Hx Gastritis, Hx Gastroesophageal Reflux Disease, Hx Hiatal Hernia, Hx Irritable Bowel Musculoskeltal Medical History: Reports Hx Fibromyalgia Psychiatric Medical History: Reports: Hx Anxiety, Hx Depression Infectious Medical History: Reports: Hx C-Diff Past Surgical History: Reports: Hx Appendectomy - 02/16/2015, Hx Nose Surgery - 2X sinus, Hx Oral Surgery, Hx Tonsillectomy - Immunizations Immunizations up to date: Yes Hx Diphtheria, Pertussis, Tetanus Vaccination: Yes - already received Hx Pneumococcal Vaccination: 02/13/13 Review of Systems - Review of Systems Constitutional: No symptoms reported Cardiovascular: No symptoms reported Respiratory: No symptoms reported Gastrointestinal: See HPI Musculoskeletal: No symptoms reported Neurological/Psychological: No symptoms reported -: Yes All other systems reviewed and negative Physical Exam - Vital signs Vitals: Temp Pulse Resp BP Pulse Ox 98.4 F 93 16 117/72 100 09/29/17 19:38 09/29/17 19:38 09/29/17 19:38 09/29/17 19:38 09/29/17 19:38 - Notes Notes: PHYSICAL EXAM GENERAL: Alert, interacts well. HEAD: Normocephalic, atraumatic. EYES: Pupils equal, round, and reactive to light. Extraocular movements intact. ENT: Oral mucosa moist, tongue midline. NECK: Full range of motion. Supple. Trachea midline. LUNGS: Clear to auscultation bilaterally, no wheezes, rales, or rhonchi. No respiratory distress. HEART: Regular rate and rhythm. No murmurs, gallops, or rubs. ABDOMEN: Soft, nondistended, mild generalized tendnerness, negative murphys sign. No guarding, rebound, or rigidity.. Bowel sounds present in all 4 quadrants. EXTREMITIES: Moves all 4 extremities spontaneously. No edema, radial and dorsalis pedis pulses 2/4 bilaterally. No cyanosis. NEUROLOGICAL: Alert and oriented x4. Normal speech. PSYCH: Normal affect, normal mood. SKIN: Warm, dry, normal turgor. No rashes or lesions noted. Course - Re-evaluation Re-evalutation: 09/29/17 22:28 Patient is a 36-year-old female who is hemodynamically stable, no acute distress and afebrile. Tolerating p.o. without any difficulty. Presentation is consistent with mild Crohn's flare that has been untreated over the past 2 weeks with appropriate steroids. Patient CDAI scores less than 150. Vital signs are stable without any evidence of hypotension, tachycardia, febrile with low indication for sepsis. At this time will initiate patient on course of p.o. steroids instruction to follow-up with her leak gang supervisor. Patient agrees with plan and stable for discharge home - Vital Signs Vital signs: Temp Pulse Resp BP Pulse Ox 98.4 F 93 16 117/72 100 09/29/17 19:38 09/29/17 19:38 09/29/17 19:38 09/29/17 19:38 09/29/17 19:38 - Laboratory Result Diagrams: 09/29/17 20:25 09/29/17 20:25 Laboratory results interpreted by me: 09/29/17 09/29/17 09/29/17 20:25 20:25 20:25 WBC 23.8 H MCV 79 L MCH 26.5 L RDW 14.2 H Plt Count 452 H Monocytes % (Manual) 1 L Abs Neuts (Manual) 17.9 H Abs Lymphs (Manual) 5.7 H Sodium 136.6 L Beta HCG, Quant 80833.00 H Urine Blood MODERATE H Discharge - Discharge Clinical Impression: Crohn disease Qualifiers: Gastrointestinal tract location: large intestine Digestive disease complication type: without complication Qualified Code(s): K50.10 - Crohn's disease of large intestine without complications Condition: Good Disposition: HOME, SELF-CARE Instructions: Crohn's Disease ([facility]) Prescriptions: Prednisone [Deltasone 20 mg Tablet] 3 tab PO DAILY 7 Days tablet Referrals: RIA MOROCHO MD [ACTIVE STAFF] - Follow up tomorrow PATITO NEUMANN MD [ACTIVE STAFF] - Follow up as needed
[2017-09-29 20:52] LABS: HEMATOCRIT 36.8 % (36.0-47.0); HEMOGLOBIN 12.3 g/dL (12.0-15.5); MEAN CORPUSCULAR HEMOGLOBIN 26.5 pg (27.0-33.4); MEAN CORPUSCULAR HGB CONC 33.4 g/dL (32.0-36.0); MEAN CORPUSCULAR VOLUME 79 fl (80-97); PLATELET COUNT 452 10^3/uL (150-450); RED BLOOD COUNT 4.65 10^6/uL (3.72-5.28); RED CELL DISTRIBUTION WIDTH 14.2 % (11.5-14.0); WHITE BLOOD COUNT 23.8 10^3/uL (4.0-10.5)
[2017-09-29 21:04] LABS: AMORPHOUS SEDIMENT,URINE TRACE /HPF; APPEARANCE,URINE SLIGHTLY-CLOUDY; BILIRUBIN,URINE NEGATIVE (NEGATIVE); COLOR,URINE YELLOW; GLUCOSE, URINE NEGATIVE (NEGATIVE); KETONES,URINE NEGATIVE (NEGATIVE); LEUKOCYTE ESTERASE,URINE NEGATIVE (NEGATIVE); NITRITE,URINE NEGATIVE (NEGATIVE); PROTEIN,URINE NEGATIVE (NEGATIVE); URINE SPECIFIC GRAVITY 1.012; UROBILINOGEN,URINE NEGATIVE mg/dL (<2.0)
[2017-09-29 21:08] LABS: ALANINE AMINOTRANSFERASE 29 U/L (9-52); ALBUMIN 4.2 g/dL (3.5-5.0); ALKALINE PHOSPHATASE 45 U/L (38-126); ANION GAP 9 (5-19); ASPARTATE AMINO TRANSFERASE 15 U/L (14-36); BILIRUBIN,DIRECT 0.2 mg/dL (0.0-0.4); BILIRUBIN,TOTAL 0.2 mg/dL (0.2-1.3); BLOOD UREA NITROGEN 14 mg/dL (7-20); CALCIUM 9.6 mg/dL (8.4-10.2); CARBON DIOXIDE 26 mmol/L (22-30); CHLORIDE 102 mmol/L (98-107); GLUCOSE 101 mg/dL (75-110); LIPASE 169.1 U/L (23-300); POTASSIUM 3.8 mmol/L (3.6-5.0); SODIUM 136.6 mmol/L (137-145); TOTAL PROTEIN 6.9 g/dL (6.3-8.2)
[2017-09-29 21:09] LABS: ABSOLUTE LYMPHOCYTES# (MANUAL) 5.7 10^3/uL (0.5-4.7); ABSOLUTE MONOCYTES # (MANUAL) 0.2 10^3/uL (0.1-1.4); ABSOLUTE NEUTROPHILS# (MANUAL) 17.9 10^3/uL (1.7-8.2); BASOPHILS % (MANUAL) 0 % (0-2); EOSINOPHILS % (MANUAL) 0 % (0-6); LYMPHOCYTES % (MANUAL) 21 % (13-45); MONOCYTES % (MANUAL) 1 % (3-13); SEGMENTED NEUTROPHILS % (MAN) 75 % (42-78); TOTAL CELLS COUNTED 100
[2017-09-29 21:10] LABS: ANISOCYTOSIS SLIGHT; PLATELET COMMENT ADEQUATE
[2017-09-29] MEDS ORDERED: PREDNISONE 20 MG TABLET PO ONE (22:24)
[2017-09-29 23:07] VITALS: BP 116/70
== END 2017-09-29 23:06 | disposition home or self-care (01) ==
LOC: ER 19:33
DX: O99.611 Diseases of the digestive system complicating pregnancy, first trimester (principal); K50.10 Crohn's disease of large intestine without complications; R10.9 Unspecified abdominal pain; Z3A.00 Weeks of gestation of pregnancy not specified; J45.909 Unspecified asthma, uncomplicated
CPT/HCPCS: 99284; 36415; 84702; 83690; 85025; 80053; 81001; J7512

== ENCOUNTER 2017-11-21 15:14 | Emergency (ER) | payer OTHER ==
[2017-11-21] MEDS ORDERED: NORMAL SALINE 1000 ML 1,000 ML IV ONE (16:18)
[2017-11-21] MEDS ORDERED: DIPHENHYDRAMINE HCL 50 MG/ML VIAL IV ONE (16:18)
[2017-11-21] MEDS ORDERED: METOCLOPRAMIDE HCL INJ/PF 10 MG/2 ML SDV IV ONE (16:18)
--- NOTE | 2017-11-21 16:18 | ER Document Report ---
ED Medical Screen (RME) - General Chief Complaint: Headache >24 hrs old Stated Complaint: HEADACHE Time Seen by Provider: 11/21/17 16:08 Mode of Arrival: Ambulatory Information source: Patient Notes: This is a 36-year-old female with a history of frequent migraines, Crohn's disease, sinus disease who presents to the emergency room with a typical migraine that is been worse than usual. She denies any fever or photophobia. She was treated for a UTI yesterday at [facility] with IM ceftriaxone and Zofran. She denies any fever. She denies any neck pain. I have greeted and performed a rapid initial assessment of this patient. A comprehensive ED assessment and evaluation of the patient, analysis of test results and completion of medical decision making process we will be contacted by additional ED providers. TRAVEL OUTSIDE OF THE [place] IN LAST 30 DAYS: No - Related Data Allergies/Adverse Reactions: doxycycline [Doxycycline] Allergy (Severe, Verified 11/21/17 15:15) Anaphylaxis ciprofloxacin [From Cipro] Allergy (Mild, Verified 11/21/17 15:15) Hives ciprofloxacin HCl [From Cipro] Allergy (Mild, Verified 11/21/17 15:15) Hives levofloxacin [From Levaquin] Allergy (Mild, Verified 11/21/17 15:15) muscle cramps Metronidazole HCl [From Flagyl] Allergy (Mild, Verified 11/21/17 15:15) VOMITING sulfamethoxazole [From Bactrim] Allergy (Mild, Verified 11/21/17 15:15) Hives trimethoprim [From Bactrim] Allergy (Mild, Verified 11/21/17 15:15) Hives metronidazole [Metronidazole] Adverse Reaction (Mild, Verified 11/21/17 15:15) Nausea Past Medical History - Social History Family history: Arthritis, CAD, CVA, DM, Hyperlipidemia, Hypertension Pulmonary Medical History: Reports: Hx Asthma, Hx Bronchitis Denies: Hx Tuberculosis Neurological Medical History: Reports: Hx Migraine Renal/ Medical History: Reports: Hx Ovarian Cysts. Denies: Hx Peritoneal Dialysis GI Medical History: Reports: Hx Crohn's Disease, Hx Gastritis, Hx Gastroesophageal Reflux Disease, Hx Hiatal Hernia, Hx Irritable Bowel Musculoskeltal Medical History: Reports Hx Fibromyalgia Psychiatric Medical History: Reports: Hx Anxiety, Hx Depression Infectious Medical History: Reports: Hx C-Diff Past Surgical History: Reports: Hx Appendectomy - 02/16/2015, Hx Nose Surgery - 2X sinus, Hx Oral Surgery, Hx Tonsillectomy - Immunizations Immunizations up to date: Yes Hx Diphtheria, Pertussis, Tetanus Vaccination: Yes - already received Physical Exam - Vital signs Vitals: Temp Pulse Resp BP Pulse Ox 98.9 F 106 H 20 129/66 H 98 11/21/17 15:21 11/21/17 15:21 11/21/17 15:21 11/21/17 15:21 11/21/17 15:21 Course - Vital Signs Vital signs: Temp Pulse Resp BP Pulse Ox 98.9 F 106 H 20 129/66 H 98 11/21/17 15:21 11/21/17 15:21 11/21/17 15:21 11/21/17 15:21 11/21/17 15:21
[2017-11-21] MEDS ORDERED: HYDROMORPHONE HCL INJ/PF 2 MG/ML AMPULE IV ONE ×2 (16:19→18:15)
[2017-11-21 16:58] LABS: HEMATOCRIT 35.8 % (36.0-47.0); MEAN CORPUSCULAR HEMOGLOBIN 26.2 pg (27.0-33.4); MEAN CORPUSCULAR HGB CONC 33.6 g/dL (32.0-36.0); MEAN CORPUSCULAR VOLUME 78 fl (80-97); PLATELET COUNT 421 10^3/uL (150-450); RED BLOOD COUNT 4.61 10^6/uL (3.72-5.28); RED CELL DISTRIBUTION WIDTH 14.7 % (11.5-14.0); WHITE BLOOD COUNT 20.1 10^3/uL (4.0-10.5)
[2017-11-21 17:13] LABS: ALANINE AMINOTRANSFERASE 20 U/L (9-52); ALBUMIN 4.2 g/dL (3.5-5.0); ALKALINE PHOSPHATASE 51 U/L (38-126); ANION GAP 11 (5-19); ASPARTATE AMINO TRANSFERASE 23 U/L (14-36); BILIRUBIN,DIRECT 0.1 mg/dL (0.0-0.4); BILIRUBIN,TOTAL 0.1 mg/dL (0.2-1.3); BLOOD UREA NITROGEN 10 mg/dL (7-20); CALCIUM 9.8 mg/dL (8.4-10.2); CARBON DIOXIDE 28 mmol/L (22-30); CHLORIDE 100 mmol/L (98-107); GLUCOSE 81 mg/dL (75-110); POTASSIUM 4.4 mmol/L (3.6-5.0); SODIUM 138.8 mmol/L (137-145)
[2017-11-21 17:24] LABS: ABSOLUTE LYMPHOCYTES# (MANUAL) 7.8 10^3/uL (0.5-4.7); ABSOLUTE MONOCYTES # (MANUAL) 0.8 10^3/uL (0.1-1.4); ABSOLUTE NEUTROPHILS# (MANUAL) 11.1 10^3/uL (1.7-8.2); BASOPHILS % (MANUAL) 0 % (0-2); EOSINOPHILS % (MANUAL) 2 % (0-6); LYMPHOCYTES % (MANUAL) 39 % (13-45); MONOCYTES % (MANUAL) 4 % (3-13); SEGMENTED NEUTROPHILS % (MAN) 55 % (42-78); TOTAL CELLS COUNTED 100
[2017-11-21 17:26] LABS: ANISOCYTOSIS SLIGHT; HYPOCHROMASIA SLIGHT; PLATELET CLUMPS PRESENT; PLATELET COMMENT ADEQUATE
--- NOTE | 2017-11-21 17:28 | ER Document Report ---
ED General - General Chief Complaint: Headache >24 hrs old Stated Complaint: HEADACHE Time Seen by Provider: 11/21/17 16:08 Mode of Arrival: Ambulatory Notes: 36-year-old female presents emergency department with complaints of her typical migraine headache. Patient states that the headache is a throbbing sensation located behind both of her eyes. She states that the migraine started yesterday. She is currently on mag salt for her migraine headaches. Patient states that she has been using this without relief of symptoms. Patient states that lights and noise worsen the headache. Patient denies any fever, neck pain , neck stiffness. Patient denies sudden onset of her migraine. Migraine is similar to previous. Patient is 14 weeks and has been following up with her SAFETY PHYSICIAN. Patient denies any other medical problems. Patient is having some associated nausea and vomiting with her migraine. TRAVEL OUTSIDE OF THE [place] IN LAST 30 DAYS: No - HPI Onset: Yesterday Onset/Duration: Gradual Quality of pain: Throbbing Severity: Severe Pain Level: 5 Associated symptoms: Nausea, Vomiting Exacerbated by: Other - Light and noise Relieved by: Denies Similar symptoms previously: Yes - Related Data Allergies/Adverse Reactions: doxycycline [Doxycycline] Allergy (Severe, Verified 11/21/17 15:15) Anaphylaxis ciprofloxacin [From Cipro] Allergy (Mild, Verified 11/21/17 15:15) Hives ciprofloxacin HCl [From Cipro] Allergy (Mild, Verified 11/21/17 15:15) Hives levofloxacin [From Levaquin] Allergy (Mild, Verified 11/21/17 15:15) muscle cramps Metronidazole HCl [From Flagyl] Allergy (Mild, Verified 11/21/17 15:15) VOMITING sulfamethoxazole [From Bactrim] Allergy (Mild, Verified 11/21/17 15:15) Hives trimethoprim [From Bactrim] Allergy (Mild, Verified 11/21/17 15:15) Hives metronidazole [Metronidazole] Adverse Reaction (Mild, Verified 11/21/17 15:15) Nausea Past Medical History - General Information source: Patient - Social History Smoking Status: Unknown if Ever Smoked Family History: Reviewed & Not Pertinent Patient has suicidal ideation: No Patient has homicidal ideation: No Pulmonary Medical History: Reports: Hx Asthma, Hx Bronchitis Denies: Hx Tuberculosis Neurological Medical History: Reports: Hx Migraine Renal/ Medical History: Reports: Hx Ovarian Cysts. Denies: Hx Peritoneal Dialysis GI Medical History: Reports: Hx Crohn's Disease, Hx Gastritis, Hx Gastroesophageal Reflux Disease, Hx Hiatal Hernia, Hx Irritable Bowel Musculoskeltal Medical History: Reports Hx Fibromyalgia Psychiatric Medical History: Reports: Hx Anxiety, Hx Depression Infectious Medical History: Reports: Hx C-Diff Past Surgical History: Reports: Hx Appendectomy - 02/16/2015, Hx Nose Surgery - 2X sinus, Hx Oral Surgery, Hx Tonsillectomy - Immunizations Immunizations up to date: Yes Hx Diphtheria, Pertussis, Tetanus Vaccination: Yes - already received Hx Pneumococcal Vaccination: 02/13/13 Review of Systems - Review of Systems Constitutional: No symptoms reported EENT: No symptoms reported Cardiovascular: No symptoms reported Respiratory: No symptoms reported Gastrointestinal: No symptoms reported Genitourinary: No symptoms reported Musculoskeletal: No symptoms reported Skin: No symptoms reported Hematologic/Lymphatic: No symptoms reported Neurological/Psychological: Headaches -: Yes All other systems reviewed and negative Physical Exam - Vital signs Vitals: Temp Pulse Resp BP Pulse Ox 98.9 F 106 H 20 129/66 H 98 11/21/17 15:21 11/21/17 15:21 11/21/17 15:21 11/21/17 15:21 11/21/17 15:21 - Notes Notes: PHYSICAL EXAMINATION: GENERAL: Well-appearing, well-nourished and in no acute distress. HEAD: Atraumatic, normocephalic. EYES: Pupils equal round and reactive to light, extraocular movements intact, conjunctiva are normal. ENT: Nares patent, oropharynx clear without exudates. Moist mucous membranes. NECK: Normal range of motion, supple without lymphadenopathy LUNGS: Breath sounds clear to auscultation bilaterally and equal. No wheezes rales or rhonchi. HEART: Regular rate and rhythm without murmurs ABDOMEN: Soft, nontender, nondistended abdomen. No guarding, no rebound. No masses appreciated. Female : deferred Musculoskeletal: Normal range of motion, no pitting or edema. No cyanosis. NEUROLOGICAL: Cranial nerves grossly intact. Normal speech, normal gait. Normal sensory, motor exams PSYCH: Normal mood, normal affect. SKIN: Warm, Dry, normal turgor, no rashes or lesions noted. Course - Re-evaluation Re-evalutation: 11/21/17 19:08 After receiving fluids, Benadryl, Reglan, Dilaudid, patient began complaining of recurrence of her headache. Patient was given a another milligram of Dilaudid. On reevaluation, patient states that she is feeling better. Still has a pressure sensation in the Left ear. I evaluated the TM. No signs of infection or fluid. Patient is concerned because she had a recurrence of her headache in a short period of time. Patient's vital signs are stable. Patient' s blood pressure is within normal limits. No neurologic deficits. Headache similar to previous headaches. Patient is requesting narcotic pain prescription as she ran out of the one her SAFETY PHYSICIAN prescribed. I told the patient that she is she should take Tylenol as needed for her headache, to contact her SAFETY PHYSICIAN and neurologist for further treatment. 11/21/17 20:34 Patient received rocephin yesterday for possible UTI. Was not given rx for antibiotics. Patient wanted her urine checked again prior to discharge. UA has + WBC, leukocyte esterase, and bacteria. I ordered 1G of rocephin in the ED. I will discharge the patient home on keflex. I instructed the patient to take medication as directed, to follow up with OB this week, and to return for worsening symptoms. Patient is agreeable with the plan of care. - Vital Signs Vital signs: Temp Pulse Resp BP Pulse Ox 98.5 F 98 20 111/64 98 11/21/17 18:47 11/21/17 18:47 11/21/17 18:47 11/21/17 18:47 11/21/17 18:47 - Laboratory Result Diagrams: 11/21/17 16:20 11/21/17 16:20 Laboratory results interpreted by me: 11/21/17 11/21/17 11/21/17 16:20 16:20 16:20 WBC 20.1 H Hct 35.8 L MCV 78 L MCH 26.2 L RDW 14.7 H Abs Neuts (Manual) 11.1 H Abs Lymphs (Manual) 7.8 H Total Bilirubin 0.1 L Ur Leukocyte Esterase LARGE H Urine Ascorbic Acid 40 H Discharge - Discharge Clinical Impression: Migraine headache Qualifiers: Migraine type: unspecified Status migrainosus presence: without status migrainosus Intractability: not intractable Qualified Code(s): G43.909 - Migraine, unspecified, not intractable, without status migrainosus Urinary tract infection Qualifiers: Urinary tract infection type: site unspecified Hematuria presence: without hematuria Qualified Code(s): N39.0 - Urinary tract infection, site not specified Condition: Stable Disposition: HOME, SELF-CARE Prescriptions: Cephalexin Monohydrate [Keflex 500 mg Capsule] 500 mg PO Q6H 5 Days #20 capsule Referrals: BERNICE LLOYD MD [Primary Care Provider] - Follow up as needed
[2017-11-21 20:26] LABS: APPEARANCE,URINE CLOUDY; BILIRUBIN,URINE NEGATIVE (NEGATIVE); COLOR,URINE YELLOW; GLUCOSE, URINE NEGATIVE (NEGATIVE); KETONES,URINE NEGATIVE (NEGATIVE); LEUKOCYTE ESTERASE,URINE LARGE (NEGATIVE); NITRITE,URINE NEGATIVE (NEGATIVE); PROTEIN,URINE NEGATIVE (NEGATIVE); URINE SPECIFIC GRAVITY 1.021; UROBILINOGEN,URINE NEGATIVE mg/dL (<2.0)
[2017-11-21] MEDS ORDERED: CEFTRIAXONE INJ 1000 MG VIAL IM ONE (20:32)
[2017-11-21 21:58] VITALS: BP 118/63
== END 2017-11-21 21:15 | disposition home or self-care (01) ==
LOC: ER 15:14
DX: O99.352 Diseases of the nervous system complicating pregnancy, second trimester (principal); G43.909 Migraine, unspecified, not intractable, without status migrainosus; O23.42 Unspecified infection of urinary tract in pregnancy, second trimester; O21.9 Vomiting of pregnancy, unspecified; O99.512 Diseases of the respiratory system complicating pregnancy, second trimester; J45.909 Unspecified asthma, uncomplicated; Z3A.14 14 weeks gestation of pregnancy; Z88.1 Allergy status to other antibiotic agents
CPT/HCPCS: 96376; 99284; 96372; 96361; 96374; 96375; 36415; 87086; 85025; 80053; 81001; J1200; J2765; J1170; J0696; J7030

== ENCOUNTER 2018-01-20 16:50 | Outpatient (CLI) | payer OTHER ==
[2018-01-20 17:48] LABS: APPEARANCE,URINE SLIGHTLY-CLOUDY; BILIRUBIN,URINE NEGATIVE (NEGATIVE); COLOR,URINE YELLOW; GLUCOSE, URINE NEGATIVE (NEGATIVE); KETONES,URINE NEGATIVE (NEGATIVE); LEUKOCYTE ESTERASE,URINE NEGATIVE (NEGATIVE); NITRITE,URINE NEGATIVE (NEGATIVE); PROTEIN,URINE NEGATIVE (NEGATIVE); URINE SPECIFIC GRAVITY 1.019
[2018-01-20 18:05] LABS: URINE AMPHETAMINES SCREEN NEGATIVE; URINE BARBITURATES SCREEN NEGATIVE; URINE COCAINE SCREEN NEGATIVE; URINE MARIJUANA (THC) SCREEN NEGATIVE; URINE METHADONE SCREEN NEGATIVE; URINE PHENCYCLIDINE SCREEN NEGATIVE
[2018-01-20 18:17] LABS: URINE BENZODIAZEPINES SCREEN UNCONFIRMED POSITIVE
== END 2018-01-20 18:03 | disposition home or self-care (01) ==
LOC: LC 16:50
PROVIDERS: ATTEND Obstetrics & Gynecology
PROC: 4A1HXCZ Monitoring of Products of Conception, Cardiac Rate, External Approach (ICD-10-PCS; principal; 2018-01-20)
DX: O47.02 False labor before 37 completed weeks of gestation, second trimester (principal); O09.522 Supervision of elderly multigravida, second trimester; Z3A.23 23 weeks gestation of pregnancy
CPT/HCPCS: 80307; 81001; 87086; 87088; 87186

== ENCOUNTER 2018-04-02 13:26 | Outpatient (CLI) | payer OTHER ==
[2018-04-02] MEDS ORDERED: FAMOTIDINE 20 MG TABLET ONE (14:30)
[2018-04-02] MEDS ORDERED: ONDANSETRON 4 MG TAB.RAPDIS ONE (14:31)
[2018-04-02] MEDS ORDERED: ONDANSETRON 4 MG TAB.RAPDIS PO ONE (14:34)
[2018-04-02] MEDS ORDERED: FAMOTIDINE 20 MG TABLET PO ONE (14:34)
--- NOTE | 2018-04-02 14:43 | Non Stress Test Report ---
Non Stress Test Datetime Report Generated by CPN: 04/02/2018 14:42 DEMOGRAPHIC EGA NST: 33.2 INDICATION Indication for Study: Ordered by Provider Indication for Study (NST) Other: LC MONITORING Monitor Explained: Monitor Explained; Test Explained; Patient Verbalized Understanding Time on Monitor: 04/02/2018 14:04 Time off Monitor: 04/02/2018 14:41 NST Duration: 37 NST INTERVENTIONS NST Interventions: PO Hydration Physician Notified NST: Sherman BABY A: [id number] BABY A Movement : Present Contraction Frequency : 0 FHR Baseline : 145 Accelerations : 15X15 Decelerations : None Variability : Moderate 6-25bpm NST Review: Meets Criteria for Reactive NST NST Review and Verified By : Brittny Camp RNC NST Results: Reactive NST REPORT Report Trigger: Send Report
[2018-04-02 15:20] LABS: APPEARANCE,URINE SLIGHTLY-CLOUDY; BILIRUBIN,URINE NEGATIVE (NEGATIVE); CALCIUM OXALATE CRYSTALS,URINE MANY /HPF; COLOR,URINE YELLOW; GLUCOSE, URINE NEGATIVE (NEGATIVE); KETONES,URINE NEGATIVE (NEGATIVE); LEUKOCYTE ESTERASE,URINE NEGATIVE (NEGATIVE); NITRITE,URINE NEGATIVE (NEGATIVE); PROTEIN,URINE 30 mg/dL (NEGATIVE); URINE SPECIFIC GRAVITY 1.021
[2018-04-02 15:33] LABS: URINE AMPHETAMINES SCREEN NEGATIVE; URINE BARBITURATES SCREEN NEGATIVE; URINE COCAINE SCREEN NEGATIVE; URINE MARIJUANA (THC) SCREEN NEGATIVE; URINE METHADONE SCREEN NEGATIVE; URINE PHENCYCLIDINE SCREEN NEGATIVE
[2018-04-02 15:38] LABS: URINE BENZODIAZEPINES SCREEN UNCONFIRMED POSITIVE
== END 2018-04-02 15:00 | disposition home or self-care (01) ==
LOC: LC 13:26
PROVIDERS: ATTEND Obstetrics & Gynecology
PROC: 4A1HXCZ Monitoring of Products of Conception, Cardiac Rate, External Approach (ICD-10-PCS; principal; 2018-04-02)
DX: O47.03 False labor before 37 completed weeks of gestation, third trimester (principal); Z3A.33 33 weeks gestation of pregnancy
CPT/HCPCS: 59025; 82962; 81001; 80307; S0119

== ENCOUNTER 2018-04-04 13:31 | Emergency (ER) | payer OTHER ==
[2018-04-04] MEDS ORDERED: RINGERS SOLUTION,LACTATED 1,000 ML IV ONE (13:46)
[2018-04-04] MEDS ORDERED: METOCLOPRAMIDE HCL INJ/PF 10 MG/2 ML SDV IV ONE (13:47)
[2018-04-04] MEDS ORDERED: DIPHENHYDRAMINE HCL 50 MG/ML VIAL IV ONE (13:47)
--- NOTE | 2018-04-04 13:50 | ER Document Report ---
ED Medical Screen (RME) - General Chief Complaint: Headache Stated Complaint: HEADACHE, VOMITING, DIZZY Time Seen by Provider: 04/04/18 13:40 Mode of Arrival: Ambulatory Information source: Patient TRAVEL OUTSIDE OF THE [place] IN LAST 30 DAYS: No - HPI Patient complains to provider of: headache Onset: Other - This is a 37-year-old 34-week female who presents for evaluation of a left-sided migraine similar to previous migraines she has had in the past for which she has been placed on Bayview as needed. She also has a history that is complicated by Crohn's disease, anxiety, among a myriad of others. - Related Data Allergies/Adverse Reactions: doxycycline [Doxycycline] Allergy (Severe, Verified 04/04/18 13:47) Anaphylaxis ciprofloxacin [From Cipro] Allergy (Mild, Verified 04/04/18 13:47) Hives ciprofloxacin HCl [From Cipro] Allergy (Mild, Verified 04/04/18 13:47) Hives levofloxacin [From Levaquin] Allergy (Mild, Verified 04/04/18 13:47) muscle cramps Metronidazole HCl [From Flagyl] Allergy (Mild, Verified 04/04/18 13:47) VOMITING sulfamethoxazole [From Bactrim] Allergy (Mild, Verified 04/04/18 13:47) Hives trimethoprim [From Bactrim] Allergy (Mild, Verified 04/04/18 13:47) Hives metronidazole [Metronidazole] Adverse Reaction (Mild, Verified 04/04/18 13:47) Nausea NSAIDS (Non-Steroidal Anti-Inflamma Adverse Reaction (Verified 04/04/18 13:47) Past Medical History - Social History Chew tobacco use (# tins/day): No Frequency of alcohol use: None Drug Abuse: None Family history: Arthritis, CAD, CVA, DM, Hyperlipidemia, Hypertension Pulmonary Medical History: Reports: Hx Asthma, Hx Bronchitis Denies: Hx Tuberculosis Neurological Medical History: Reports: Hx Migraine Endocrine Medical History: Comment Only: Hx Diabetes Mellitus Type 2 - gestational dm Renal/ Medical History: Reports: Hx Ovarian Cysts. Denies: Hx Peritoneal Dialysis GI Medical History: Reports: Hx Crohn's Disease, Hx Gastritis, Hx Gastroesophageal Reflux Disease, Hx Hiatal Hernia, Hx Irritable Bowel Musculoskeltal Medical History: Reports Hx Fibromyalgia Psychiatric Medical History: Reports: Hx Anxiety, Hx Depression Infectious Medical History: Reports: Hx C-Diff Past Surgical History: Reports: Hx Appendectomy - 02/16/2015, Hx Nose Surgery - 2X sinus, Hx Oral Surgery, Hx Tonsillectomy - Immunizations Immunizations up to date: Yes Hx Diphtheria, Pertussis, Tetanus Vaccination: Yes - already received Physical Exam - Vital signs Vitals: Temp Pulse Resp BP Pulse Ox 98.1 F 114 H 24 H 122/60 98 04/04/18 13:37 04/04/18 13:37 04/04/18 13:37 04/04/18 13:37 04/04/18 13:37 Course - Re-evaluation Re-evalutation: 37-year-old female with a complex past medical history who is 33-34 weeks . Presents for evaluation of migraine on the left side of her head for which she has been prescribed Bayview. Notes that she has not been able to eat or drink. This feels similar to previous migraines which she has had in the past. We will draw labs for CBC CMP and a urine and administer antiemetic in addition to fluids. 04/04/18 13:49 I have greeted and performed a rapid initial assessment of this patient. A comprehensive ED assessment and evaluation of the patient, analysis of test results and completion of the medical decision making process will be conducted by additional ED providers - Vital Signs Vital signs: Temp Pulse Resp BP Pulse Ox 98.1 F 114 H 24 H 122/60 98 04/04/18 13:37 04/04/18 13:37 04/04/18 13:37 04/04/18 13:37 04/04/18 13:37 Doctor's Discharge - Discharge Referrals: BERNICE LLOYD MD [Primary Care Provider] - Follow up as needed
[2018-04-04 14:49] LABS: ABSOLUTE BASOPHILS # (AUTO) 0.1 10^3/uL (0.0-0.2); ABSOLUTE EOSINOPHILS # (AUTO) 0.1 10^3/uL (0.0-0.6); ABSOLUTE LYMPHOCYTES (AUTO) 2.1 10^3/uL (0.5-4.7); ABSOLUTE MONOCYTES (AUTO) 0.9 10^3/uL (0.1-1.4); ABSOLUTE NEUT (AUTO) 10.1 10^3/uL (1.7-8.2); BASOPHILS % (AUTO) 0.5 % (0-2); EOSINOPHILS % (AUTO) 1.1 % (0-6); HEMATOCRIT 26.7 % (36.0-47.0); MEAN CORPUSCULAR HEMOGLOBIN 19.3 pg (27.0-33.4); MEAN CORPUSCULAR HGB CONC 29.7 g/dL (32.0-36.0); MONOCYTES % (AUTO) 6.9 % (3-13); PLATELET COUNT 243 10^3/uL (150-450); RED BLOOD COUNT 4.12 10^6/uL (3.72-5.28); RED CELL DISTRIBUTION WIDTH 17.8 % (11.5-14.0); SEGMENTED NEUTROPHILS % (AUTO) 75.5 % (42-78); TOTAL CELLS COUNTED % (AUTO) 100 %; WHITE BLOOD COUNT 13.4 10^3/uL (4.0-10.5)
[2018-04-04 14:56] LABS: APPEARANCE,URINE CLOUDY; BILIRUBIN,URINE NEGATIVE (NEGATIVE); COLOR,URINE YELLOW; GLUCOSE, URINE NEGATIVE (NEGATIVE); KETONES,URINE NEGATIVE (NEGATIVE); LEUKOCYTE ESTERASE,URINE SMALL (NEGATIVE); NITRITE,URINE NEGATIVE (NEGATIVE); PROTEIN,URINE NEGATIVE (NEGATIVE); URINE SPECIFIC GRAVITY 1.012; UROBILINOGEN,URINE NEGATIVE mg/dL (<2.0)
[2018-04-04 15:05] LABS: ALANINE AMINOTRANSFERASE 13 U/L (9-52); ALBUMIN 3.1 g/dL (3.5-5.0); ALKALINE PHOSPHATASE 122 U/L (38-126); ANION GAP 8 (5-19); ASPARTATE AMINO TRANSFERASE 19 U/L (14-36); BILIRUBIN,DIRECT 0.1 mg/dL (0.0-0.4); BILIRUBIN,TOTAL 0.3 mg/dL (0.2-1.3); BLOOD UREA NITROGEN 6 mg/dL (7-20); CALCIUM 8.6 mg/dL (8.4-10.2); CARBON DIOXIDE 20 mmol/L (22-30); CHLORIDE 107 mmol/L (98-107); GLUCOSE 91 mg/dL (75-110); POTASSIUM 4.2 mmol/L (3.6-5.0); SODIUM 135.2 mmol/L (137-145)
[2018-04-04 15:18] LABS: ANISOCYTOSIS 1+; HYPOCHROMASIA 3+; OVALOCYTES SLIGHT; PLATELET COMMENT ADEQUATE; POIKILOCYTOSIS 1+; POLYCHROMASIA SLIGHT; TEAR DROP CELLS 1+; TOXIC GRANULATION SLIGHT; TOXIC VACUOLATION PRESENT
[2018-04-04 15:19] LABS: MEAN CORPUSCULAR VOLUME 65 fl (80-97)
--- NOTE | 2018-04-04 15:20 | ER Document Report ---
ED General - General Chief Complaint: Headache Stated Complaint: HEADACHE, VOMITING, DIZZY Time Seen by Provider: 04/04/18 13:40 Mode of Arrival: Ambulatory Information source: Patient, [facility] Records Notes: 37-year-old female 33 weeks OB with migraine headaches, type 2 diabetes, asthma presents with complaint of left-sided headache that started 1 day prior to arrival. Patient states headache was initially dull but when she awoke this morning became more of a throbbing pain that radiated down to her left face and left ear. Patient states this is typical of her migraine headaches. She denies any head injury, visual disturbance. She does admit to nausea, vomiting. Patient reports an uneventful . She denies any chest pain, shortness of breath, abdominal pain, vaginal bleeding, dysuria. She did have an evaluation with OB 2 days prior to arrival for elevated glucose. Patient has tried Tylenol without relief. TRAVEL OUTSIDE OF THE [place] IN LAST 30 DAYS: No - HPI Onset: Yesterday Onset/Duration: Gradual, Persistent, Worse Quality of pain: Throbbing Severity: Moderate Associated symptoms: Earache, Nausea, Vomiting. denies: Nonproductive cough, Productive cough, Fever, Shortness of breath, Sore throat Exacerbated by: Denies Relieved by: Denies Similar symptoms previously: Yes Recently seen / treated by doctor: Yes - 04/02/18 - Related Data Allergies/Adverse Reactions: doxycycline [Doxycycline] Allergy (Severe, Verified 04/04/18 13:47) Anaphylaxis ciprofloxacin [From Cipro] Allergy (Mild, Verified 04/04/18 13:47) Hives ciprofloxacin HCl [From Cipro] Allergy (Mild, Verified 04/04/18 13:47) Hives levofloxacin [From Levaquin] Allergy (Mild, Verified 04/04/18 13:47) muscle cramps Metronidazole HCl [From Flagyl] Allergy (Mild, Verified 04/04/18 13:47) VOMITING sulfamethoxazole [From Bactrim] Allergy (Mild, Verified 04/04/18 13:47) Hives trimethoprim [From Bactrim] Allergy (Mild, Verified 04/04/18 13:47) Hives metronidazole [Metronidazole] Adverse Reaction (Mild, Verified 04/04/18 13:47) Nausea NSAIDS (Non-Steroidal Anti-Inflamma Adverse Reaction (Verified 04/04/18 13:47) Past Medical History - General Information source: Patient - Social History Smoking Status: Never Smoker Chew tobacco use (# tins/day): No Frequency of alcohol use: None Drug Abuse: None Lives with: Family Family History: Reviewed & Not Pertinent Patient has suicidal ideation: No Patient has homicidal ideation: No Pulmonary Medical History: Reports: Hx Asthma, Hx Bronchitis Denies: Hx Tuberculosis Neurological Medical History: Reports: Hx Migraine Endocrine Medical History: Comment Only: Hx Diabetes Mellitus Type 2 - gestational dm Renal/ Medical History: Reports: Hx Ovarian Cysts. Denies: Hx Peritoneal Dialysis GI Medical History: Reports: Hx Crohn's Disease, Hx Gastritis, Hx Gastroesophageal Reflux Disease, Hx Hiatal Hernia, Hx Irritable Bowel Musculoskeletal Medical History: Reports Hx Fibromyalgia Psychiatric Medical History: Reports: Hx Anxiety, Hx Depression Infectious Medical History: Reports: Hx C-Diff Past Surgical History: Reports: Hx Appendectomy - 02/16/2015, Hx Nose Surgery - 2X sinus, Hx Oral Surgery, Hx Tonsillectomy - Immunizations Immunizations up to date: Yes Hx Diphtheria, Pertussis, Tetanus Vaccination: Yes - already received Hx Pneumococcal Vaccination: 02/13/13 Review of Systems - Review of Systems Constitutional: denies: Fever, Weakness, Recent illness EENT: Ear pain. denies: Blurred vision Cardiovascular: denies: Chest pain Respiratory: Wheezing - resolved with home tx's Gastrointestinal: Nausea, Vomiting Genitourinary: denies: Dysuria Female Genitourinary: No symptoms reported Musculoskeletal: No symptoms reported Skin: denies: Rash Hematologic/Lymphatic: No symptoms reported Neurological/Psychological: Headaches. denies: Weakness, Numbness -: Yes All other systems reviewed and negative Physical Exam - Vital signs Vitals: Temp Pulse Resp BP Pulse Ox 98.1 F 114 H 24 H 122/60 98 04/04/18 13:37 04/04/18 13:37 04/04/18 13:37 04/04/18 13:37 04/04/18 13:37 - Notes Notes: PHYSICAL EXAMINATION: GENERAL: Well-appearing, well-nourished and in no acute distress. HEAD: Atraumatic, normocephalic. EYES: Pupils equal round and reactive to light, extraocular movements intact, conjunctiva are normal. Normal Funduscopic exam ENT: Nares patent, oropharynx clear without exudates. Moist mucous membranes. NECK: Normal range of motion, supple without lymphadenopathy LUNGS: Breath sounds clear to auscultation bilaterally and equal. No wheezes rales or rhonchi. HEART: Regular rate and rhythm without murmurs ABDOMEN: Gravid nontender, nondistended abdomen. No guarding, no rebound. No masses appreciated. Female : deferred Musculoskeletal: Normal range of motion, no pitting or edema. No cyanosis. NEUROLOGICAL: Cranial nerves grossly intact. Normal speech, normal gait. Normal sensory, motor exams PSYCH: Normal mood, normal affect. SKIN: Warm, Dry, normal turgor, no rashes or lesions noted. Course - Re-evaluation Re-evalutation: 04/06/18 12:00 37-year-old female 33 weeks OB with migraine headaches, type 2 diabetes, asthma presents with complaint of left-sided headache that started 1 day prior to arrival. Patient states headache was initially dull but when she awoke this morning became more of a throbbing pain that radiated down to her left face and left ear. Patient states this is typical of her migraine headaches. Upon arrival vitals reviewed and within afebrile, normotensive and not hypoxic. She does not appear toxic or dehydrated. Patient did receive IV fluids, Reglan, Benadryl, Fioricet during her ED course. On first reevaluation patient states headache has improved but is still present. She states that she does take Fioricet at home and would like to try this. On reevaluation patient is requesting discharge home. Reports resolution of headache. Patient was evaluated and treated as appropriate for the patient's presenting symptoms and complaint, with consideration of any critical or life threatening conditions that may be associated with their obtained history and exam as noted above. All results were discussed with patient. Patient provided the opportunity to ask questions, and express concerns. Patient was educated on treatments based on their presumed diagnosis as noted above. At this time we will discharge the patient with return precautions and follow-up recommendations. Verbal discharge instructions given a the bedside. Medication warnings reviewed. Patient is in agreement with this plan and has verbalized understanding of return precautions. After careful consideration I feel that that patient can be safely discharged from the emergency department, they were advised to followup with a primary care physician in 2-3 days. Dictation on this chart was performed using voice recognition software and may result in unintended grammatical, spelling, syntax or errors. 04/06/18 12:00 - Vital Signs Vital signs: Temp Pulse Resp BP Pulse Ox 97.5 F 87 16 111/46 L 99 04/04/18 17:06 04/04/18 17:06 04/04/18 17:06 04/04/18 17:06 04/04/18 17:06 - Laboratory Result Diagrams: 04/04/18 13:50 04/04/18 13:50 Laboratory results interpreted by me: 04/04/18 04/04/18 04/04/18 13:50 13:50 13:50 WBC 13.4 H Hgb 8.0 L Hct 26.7 L MCV 65 L MCH 19.3 L MCHC 29.7 L RDW 17.8 H Absolute Neutrophils 10.1 H Sodium 135.2 L Carbon Dioxide 20 L BUN 6 L Total Protein 6.0 L Albumin 3.1 L Ur Leukocyte Esterase SMALL H Discharge - Discharge Clinical Impression: Anemia affecting in third trimester Headache Qualifiers: Headache type: unspecified Headache chronicity pattern: unspecified pattern Intractability: not intractable Qualified Code(s): R51 - Headache Condition: Good Disposition: HOME, SELF-CARE Instructions: Anemia ([facility]), Headache ([facility]), ([facility]) Additional Instructions: You have been seen in the Emergency Department (ED) for a headache. Please use Tylenol (acetaminophen) or your home medication of Fioricet as needed for symptoms, but only as written on the box. As we have discussed, please follow up with your primary care doctor as soon as possible regarding today's ED visit and your headache symptoms. Call your doctor or return to the ED if you have a worsening headache, sudden and severe headache, confusion, slurred speech, facial droop, weakness or numbness in any arm or leg, extreme fatigue, or other symptoms that concern you. Referrals: BERNICE LLOYD MD [Primary Care Provider] - Follow up as needed
[2018-04-04] MEDS ORDERED: BUTALB/ACETAMINOPHEN/CAFFEINE 1 TAB EACH PO ONE (16:19)
[2018-04-04 17:08] VITALS: BP 111/46
[2018-04-05 14:23] LABS: PATH REVIEW PATHOLOGIST REVIEWED
== END 2018-04-04 17:19 | disposition home or self-care (01) ==
LOC: ER 13:31
DX: O99.013 Anemia complicating pregnancy, third trimester (principal); O26.893 Other specified pregnancy related conditions, third trimester; R51 Headache; H92.02 Otalgia, left ear; O24.419 Gestational diabetes mellitus in pregnancy, unspecified control; O21.9 Vomiting of pregnancy, unspecified; O99.52 Diseases of the respiratory system complicating childbirth; J45.909 Unspecified asthma, uncomplicated; Z3A.33 33 weeks gestation of pregnancy
CPT/HCPCS: 99284; 96361; 96374; 96375; 36415; 85025; 80053; 81001; J3490; J1200; J2765; J7120

== ENCOUNTER 2018-04-28 07:01 | Emergency (ER) | payer OTHER ==
[2018-04-28 08:01] LABS: HEMATOCRIT 25.2 % (36.0-47.0); MEAN CORPUSCULAR HEMOGLOBIN 19.8 pg (27.0-33.4); MEAN CORPUSCULAR HGB CONC 31.3 g/dL (32.0-36.0); MEAN CORPUSCULAR VOLUME 63 fl (80-97); PLATELET COUNT 290 10^3/uL (150-450); RED BLOOD COUNT 3.98 10^6/uL (3.72-5.28); RED CELL DISTRIBUTION WIDTH 18.4 % (11.5-14.0); WHITE BLOOD COUNT 15.4 10^3/uL (4.0-10.5)
[2018-04-28 08:10] LABS: HEMOGLOBIN 7.9 g/dL (12.0-15.5)
[2018-04-28 08:16] LABS: ALANINE AMINOTRANSFERASE 13 U/L (9-52); ALBUMIN 3.3 g/dL (3.5-5.0); ALKALINE PHOSPHATASE 157 U/L (38-126); ANION GAP 10 (5-19); ASPARTATE AMINO TRANSFERASE 21 U/L (14-36); BILIRUBIN,DIRECT 0.1 mg/dL (0.0-0.4); BILIRUBIN,TOTAL 0.3 mg/dL (0.2-1.3); BLOOD UREA NITROGEN 7 mg/dL (7-20); CALCIUM 8.9 mg/dL (8.4-10.2); CARBON DIOXIDE 22 mmol/L (22-30); CHLORIDE 106 mmol/L (98-107); GLUCOSE 76 mg/dL (75-110); LIPASE 98.5 U/L (23-300); POTASSIUM 4.5 mmol/L (3.6-5.0); SODIUM 138.3 mmol/L (137-145); TOTAL PROTEIN 6.1 g/dL (6.3-8.2)
--- NOTE | 2018-04-28 08:17 | ER Document Report ---
ED General - General Chief Complaint: Diarrhea Stated Complaint: ABDOMINAL PAIN Time Seen by Provider: 04/28/18 07:36 TRAVEL OUTSIDE OF THE [place] IN LAST 30 DAYS: No - HPI Notes: Patient is a 37-year-old female that presents to the emergency department for chief complaint of diarrhea and abdominal pain. Patient is and 37 weeks gestation. She reports a constant left lower quadrant pain for the last 2-3 days. She has been having 2 weeks of bloody and mucousy rectal discharge. Patient does have Crohn's disease and has been noncompliant with her Lialda. She states she has been having nonstress tests twice a week because of a high risk due to her Crohn's. Her pain currently is in her left lower quadrant and sharp. There is no radiation of the pain. She denies any aggravating or relieving factors. She does report nausea with 3 episodes of vomiting. She has had 1-2 episodes of diarrhea daily for the last 4 days. Patient also reports feeling overly tired. She states she has been told that she is anemic and is in the process of getting iron transfusions ordered. Past Medical History: Crohn's disease Past Surgical History: Colonoscopy Social History: Denies drugs alcohol and tobacco Family History: Reviewed and noncontributory for presenting illness Allergies: Reviewed, see documented allergy list. REVIEW OF SYSTEMS: CONSTITUTIONAL : Fatigue No fever No chills No diaphoresis No recent illness EENT: No vision changes No congestion No sore throat CARDIOVASCULAR: No chest pain No palpitations RESPIRATORY: No shortness of breath No cough No difficulty breathing GASTROINTESTINAL: No abdominal pain No nausea No vomiting No diarrhea GENITOURINARY: No dysuria No hematuria No difficulty urinating MUSCULOSKELETAL: No back pain No leg pain No arm pain SKIN: No rashes No lesions LYMPHATIC: No swollen, enlarged glands. NEUROLOGICAL: No lightheadedness No headache No weakness No paresthesias PSYCHIATRIC: No anxiety No depression PHYSICAL EXAMINATION: Vital signs reviewed, nursing noted reviewed. GENERAL: Well-appearing, well-nourished and in no acute distress. HEAD: Atraumatic, normocephalic. EYES: Eyes appear normal, extraocular movements intact, sclera anicteric, conjunctiva are normal. ENT: nares patent, oropharynx clear without exudates. Moist mucous membranes. NECK: Normal range of motion, supple without lymphadenopathy LUNGS: Breath sounds clear to auscultation bilaterally and equal. No wheezes rales or rhonchi. HEART: Regular rate and rhythm without murmurs ABDOMEN: gravid uterus under xiphoid process, soft and nontender. Mild left lower quadrant tenderness palpated laterally. No rebound, guarding, or rigidity. EXTREMITIES: Nontender, good range of motion, no pitting or edema. NEUROLOGICAL: No focal neurological deficits. Moves all extremities spontaneously Motor and sensory grossly intact on exam. PSYCH: Normal mood, normal affect. SKIN: Warm, Dry, normal turgor, no rashes or lesions noted on exposed skin - Related Data Allergies/Adverse Reactions: doxycycline [Doxycycline] Allergy (Severe, Verified 04/28/18 07:29) Anaphylaxis ciprofloxacin [From Cipro] Allergy (Mild, Verified 04/28/18 07:29) Hives ciprofloxacin HCl [From Cipro] Allergy (Mild, Verified 04/28/18 07:29) Hives levofloxacin [From Levaquin] Allergy (Mild, Verified 04/28/18 07:29) muscle cramps Metronidazole HCl [From Flagyl] Allergy (Mild, Verified 04/28/18 07:29) VOMITING sulfamethoxazole [From Bactrim] Allergy (Mild, Verified 04/28/18 07:29) Hives trimethoprim [From Bactrim] Allergy (Mild, Verified 04/28/18 07:29) Hives metronidazole [Metronidazole] Adverse Reaction (Mild, Verified 04/28/18 07:29) Nausea NSAIDS (Non-Steroidal Anti-Inflamma Adverse Reaction (Verified 04/28/18 07:29) Past Medical History - Social History Smoking Status: Never Smoker Family History: Reviewed & Not Pertinent Pulmonary Medical History: Reports: Hx Asthma, Hx Bronchitis Denies: Hx Tuberculosis Neurological Medical History: Reports: Hx Migraine Endocrine Medical History: Comment Only: Hx Diabetes Mellitus Type 2 - gestational dm Renal/ Medical History: Reports: Hx Ovarian Cysts. Denies: Hx Peritoneal Dialysis GI Medical History: Reports: Hx Crohn's Disease, Hx Gastritis, Hx Gastroesophageal Reflux Disease, Hx Hiatal Hernia, Hx Irritable Bowel Musculoskeletal Medical History: Reports Hx Fibromyalgia Psychiatric Medical History: Reports: Hx Anxiety, Hx Depression Infectious Medical History: Reports: Hx C-Diff Past Surgical History: Reports: Hx Appendectomy - 02/16/2015, Hx Nose Surgery - 2X sinus, Hx Oral Surgery, Hx Tonsillectomy - Immunizations Immunizations up to date: Yes Hx Diphtheria, Pertussis, Tetanus Vaccination: Yes - already received Hx Pneumococcal Vaccination: 02/13/13 Review of Systems - Review of Systems Notes: Dictated Physical Exam - Vital signs Vitals: Temp Pulse Resp BP Pulse Ox 98.0 F 86 18 123/69 100 04/28/18 07:04 04/28/18 07:04 04/28/18 07:04 04/28/18 07:04 04/28/18 07:04 - Notes Notes: Dictated Course - Re-evaluation Re-evalutation: 04/28/18 08:16 Vitals reviewed. Nursing notes reviewed. Patient given IV hydration. Her hemoglobin is 7.9 04/28/18 09:43 Patient's lab work other than her anemia is unremarkable. She has no electrolyte derangements or renal insufficiency. I discussed her care with Dr. Norwood, TODDLER TEACHER, who would like her to be discharged from the emergency room and sent to labor and delivery. She states she will likely admit her to the hospital but would like to evaluate her first. Patient is in agreement with this plan and will be taken directly from the emergency room to labor and delivery for further TODDLER TEACHER evaluation. Laboratory 04/28/18 04/28/18 04/28/18 07:45 07:45 08:40 WBC 15.4 H RBC 3.98 Hgb 7.9 L Hct 25.2 L MCV 63 L MCH 19.8 L MCHC 31.3 L RDW 18.4 H Plt Count 290 Total Counted 100 Seg Neutrophils % Not Reportable Seg Neuts % (Manual) 68 Lymphocytes % Not Reportable Lymphocytes % (Manual) 22 Atypical Lymphs % 1 Monocytes % Not Reportable Monocytes % (Manual) 5 Eosinophils % Not Reportable Eosinophils % (Manual) 4 Basophils % Not Reportable Basophils % (Manual) 0 Absolute Neutrophils Not Reportable Abs Neuts (Manual) 10.5 H Absolute Lymphocytes Not Reportable Abs Lymphs (Manual) 3.5 Absolute Monocytes Not Reportable Abs Monocytes (Manual) 0.8 Absolute Eosinophils Not Reportable Absolute Eos (Manual) 0.6 Absolute Basophils Not Reportable Abs Basophils (Manual) 0.0 Platelet Comment ADEQUATE Polychromasia SLIGHT Hypochromasia SLIGHT Anisocytosis 2+ Microcytosis 3+ Sodium 138.3 Potassium 4.5 Chloride 106 Carbon Dioxide 22 Anion Gap 10 BUN 7 Creatinine 0.60 Est GFR ( Amer) > 60 Est GFR (Non-Af Amer) > 60 Glucose 76 Calcium 8.9 Total Bilirubin 0.3 Direct Bilirubin 0.1 Neonat Total Bilirubin Not Reportable Neonat Direct Bilirubin Not Reportable Neonat Indirect Bili Not Reportable AST 21 ALT 13 Alkaline Phosphatase 157 H Total Protein 6.1 L Albumin 3.3 L Lipase 98.5 Urine Color STRAW Urine Appearance SLIGHTLY-CLOUDY Urine pH 6.0 Ur Specific [place] 1.010 Urine Protein NEGATIVE Urine Glucose (UA) NEGATIVE Urine Ketones NEGATIVE Urine Blood NEGATIVE Urine Nitrite NEGATIVE Urine Bilirubin NEGATIVE Urine Urobilinogen NEGATIVE Ur Leukocyte Esterase TRACE H Urine WBC (Auto) 3 Urine RBC (Auto) 1 Urine Bacteria (Auto) TRACE Squamous Epi Cells Auto 11 Urine Mucus (Auto) RARE Urine Ascorbic Acid NEGATIVE - Vital Signs Vital signs: Temp Pulse Resp BP Pulse Ox 98.0 F 86 18 123/69 100 04/28/18 07:04 04/28/18 07:04 04/28/18 07:04 04/28/18 07:04 04/28/18 07:04 - Laboratory Result Diagrams: 04/28/18 07:45 04/28/18 07:45 Laboratory results interpreted by me: 04/28/18 04/28/18 04/28/18 07:45 07:45 08:40 WBC 15.4 H Hgb 7.9 L Hct 25.2 L MCV 63 L MCH 19.8 L MCHC 31.3 L RDW 18.4 H Abs Neuts (Manual) 10.5 H Alkaline Phosphatase 157 H Total Protein 6.1 L Albumin 3.3 L Ur Leukocyte Esterase TRACE H Discharge - Discharge Clinical Impression: Bloody diarrhea Anemia Qualifiers: Anemia type: iron deficiency Iron deficiency anemia type: other iron deficiency Qualified Code(s): D50.8 - Other iron deficiency anemias Crohn's colitis Qualifiers: Digestive disease complication type: unspecified complication Qualified Code(s) : K50.119 - Crohn's disease of large intestine with unspecified complications Condition: Stable Disposition: OTHER Additional Instructions: Go directly to labor and delivery for further evaluation by Dr. Norwood
[2018-04-28 08:29] LABS: ABSOLUTE LYMPHOCYTES# (MANUAL) 3.5 10^3/uL (0.5-4.7); ABSOLUTE MONOCYTES # (MANUAL) 0.8 10^3/uL (0.1-1.4); ABSOLUTE NEUTROPHILS# (MANUAL) 10.5 10^3/uL (1.7-8.2); BASOPHILS % (MANUAL) 0 % (0-2); EOSINOPHILS % (MANUAL) 4 % (0-6); LYMPHOCYTES % (MANUAL) 22 % (13-45); MONOCYTES % (MANUAL) 5 % (3-13); SEGMENTED NEUTROPHILS % (MAN) 68 % (42-78); TOTAL CELLS COUNTED 100
[2018-04-28 08:33] LABS: ANISOCYTOSIS 2+; HYPOCHROMASIA SLIGHT; PLATELET COMMENT ADEQUATE; POLYCHROMASIA SLIGHT
[2018-04-28] MEDS ORDERED: NORMAL SALINE 1000 ML 1,000 ML IV ONE (08:36)
[2018-04-28 08:57] LABS: APPEARANCE,URINE SLIGHTLY-CLOUDY; BILIRUBIN,URINE NEGATIVE (NEGATIVE); COLOR,URINE STRAW; GLUCOSE, URINE NEGATIVE (NEGATIVE); KETONES,URINE NEGATIVE (NEGATIVE); LEUKOCYTE ESTERASE,URINE TRACE (NEGATIVE); NITRITE,URINE NEGATIVE (NEGATIVE); PROTEIN,URINE NEGATIVE (NEGATIVE); UROBILINOGEN,URINE NEGATIVE mg/dL (<2.0)
[2018-04-28 09:57] VITALS: BP 105/57
== END 2018-04-28 10:00 | disposition other institution (70) ==
LOC: ER 07:01
DX: O99.613 Diseases of the digestive system complicating pregnancy, third trimester (principal); K50.911 Crohn's disease, unspecified, with rectal bleeding; Z91.14 Patient's other noncompliance with medication regimen; O99.013 Anemia complicating pregnancy, third trimester; D50.9 Iron deficiency anemia, unspecified; O26.893 Other specified pregnancy related conditions, third trimester; R10.32 Left lower quadrant pain; Z3A.37 37 weeks gestation of pregnancy; Z88.1 Allergy status to other antibiotic agents
CPT/HCPCS: 99284; 96360; 36415; 83690; 85025; 80053; 81001; J7030

== ENCOUNTER 2018-04-28 09:52 | Inpatient (IN) | payer OTHER ==
[2018-04-28 10:38] LABS: APPEARANCE,URINE CLEAR; BILIRUBIN,URINE NEGATIVE (NEGATIVE); COLOR,URINE COLORLESS; GLUCOSE, URINE NEGATIVE (NEGATIVE); KETONES,URINE NEGATIVE (NEGATIVE); LEUKOCYTE ESTERASE,URINE NEGATIVE (NEGATIVE); NITRITE,URINE NEGATIVE (NEGATIVE); PROTEIN,URINE NEGATIVE (NEGATIVE); URINE SPECIFIC GRAVITY 1.008; UROBILINOGEN,URINE NEGATIVE mg/dL (<2.0)
[2018-04-28 10:46] LABS: IRON(TIBC) 16.3 ug/dL (37-170)
[2018-04-28 10:53] LABS: ABSOLUTE RETICS # 0.117 10^6/uL (0.028-0.122); RETICULOCYTE COUNT (AUTO) 2.91 % (0.66-2.85)
[2018-04-28 11:11] LABS: URINE AMPHETAMINES SCREEN NEGATIVE; URINE BARBITURATES SCREEN NEGATIVE; URINE BENZODIAZEPINES SCREEN NEGATIVE; URINE COCAINE SCREEN NEGATIVE; URINE MARIJUANA (THC) SCREEN NEGATIVE; URINE METHADONE SCREEN NEGATIVE; URINE PHENCYCLIDINE SCREEN NEGATIVE
[2018-04-28 11:25] LABS: FERRITIN 5.78 ng/mL (6.2-137.0)
--- NOTE | 2018-04-28 11:30 | Admission Physical ---
Datetime Report Generated by CPN: 04/28/2018 11:30 CURRENT ADMISSION Chief Complaint: Other Chief Complaint Other: Chrons Flare and anemia Indication for Induction: Not Applicable Admit Impression : Term, Intrauterine ; No Active Labor; Intact Membranes; Medical Complication Admit Plan: Admit to Unit; Observation/Evaluation ALLERGIES Medication Allergies: Yes Medication Allergies: Metronidazole HCl/NC/VOMITING (04/28/2018); ciprofloxacin HCl/NC/Hives (04/28/2018); NSAIDS (Non-Steroidal Anti-Inflamma (04/28/2018); doxycycline/SV/Anaphylaxis (04/28/2018); sulfamethoxazole/NC/Hives (04/28/2018); trimethoprim/NC/Hives (04/28/2018); ciprofloxacin/NC/Hives (04/28/2018); metronidazole/NC/Nausea (04/28/2018); levofloxacin/NC/muscle cramps (04/28/2018) Latex: No Latex Allergies Food Allergies: n/a Environmental Allergies: n/a OBSTETRICAL HISTORY EDC: 05/19/2018 00:00 : 3 Para: 2 Livin Gestational Diabetes: Yes Rh Sensitization: No Incompetent Cervix: No ANDRAE: No Infertility: No ART Treatment: No Uterine Anomaly: No IUGR: No Hx Previous C/S: No Macrosomia: No Hx Loss/Stillborn: No PIH: No Hx : No Placenta Previa/Abruption: No Depression/PP Depression: Yes PTL/PROM: No Post Hemorrhage: No Current Procedures: Ultrasound; NST Obstetrical History Comments: G1 2007 boy 7lb 2 oz G2 2014 boy 7 lb 3 oz G3 current SEE RECORDS Alcohol: No Marijuana : No Cocaine: No Other Illicit Drugs: No Cigarettes: Never Smoker. [id number] MEDICAL HISTORY Diabetes: No Diabetes Type: Gestational Diabetes Blood Transfusion: No Pulmonary Disease (Asthma, TB): Yes Breast Disease: No Hypertension: No Retinal Surgeon Surgery: No Heart Disease: No Hosp/Surgery: Yes Autoimmune Disorder: No Anesthetic Complications: No Kidney Disease: No Abnormal Pap Smear: No Neuro/Epilepsy: No Psychiatric Disorders: No Other Medical Diseases: Yes Hepatitis/Liver Disease: No Significant Family History: No Varicosities/Phlebitis: No Trauma/Violence : No Thyroid Dysfunction: No Medical History Comments: Crohn's disease INFECTIOUS HISTORY Gonorrhea: No Genital Herpes: No Chlamydia: No Tuberculosis: No Syphilis: No Hepatitis: No HIV/AIDS Exposure: No Rash or Viral Illness: No HPV: No PHYSICAL EXAM General: Normal HEENT: Normal Neurologic: Normal Thyroid: Deferred Heart: Normal Lungs: Normal Breast: Deferred Back: Normal Abdomen: Normal Genitourinary Exam: Normal Extremities: Normal DTRs: Normal Pelvic Type: Adequate Vital Signs: Reviewed FETUS A EGA: 37.0 Monitoring: External US Presentation: Vertex Admit Comment: 37yo at 37+0ega with Crohns presents through the ER for bloody diarrhea and mucus for several days. She was noted to be anemic in the ER. She has not received Iron infusion recommended by provider in the office. She reports that she had a flare in Jan/Feb and was on Steroids then Dr Iraheta wanted her on Lialda and Canasa - but she has not been compliant with medication. She also has GDM and has not been checking her sugars. She reports that she is not eating as well due to the diarrhea. H/o anxiety and depression - Zoloft 150mg po daily - Gabapentin 300mg - supposed to f/u with [facility]. Chronic pain and fibromyalgia - continue f/u with arthritis. Also h/o asthma, APA this . Admit for Iron infusion and Dr. Baxter will see her. Also have called Dr. Iraheta and he will help us with her Crohns management. We appreciate Dr. Iraheta and Dr Baxter for there assistance with patient. PLANS FOR LABOR AND DELIVERY Labor and Delivery: None Pain Management: Epidural Feeding Preference: Formula Benefit of Breast Feed Discussed: Yes INFORMED CONSENT Informed Consent Obtained: Risks, Benefits and Alternatives Discussed Signature: with User ID: [email or web address]
[2018-04-28] MEDS ORDERED: FERRIC CARBOXYMALTOSE INJ 750 MG/15 ML VIAL IV ONE (11:31)
[2018-04-28] MEDS ORDERED: ALBUTEROL SULFATE HFA (90 MCG/PUFF) 200 PUFF/8.5 GM MDI IH PRN (11:37)
[2018-04-28] MEDS ORDERED: RINGERS SOLUTION,LACTATED 1,000 ML IV PRN (11:42)
[2018-04-28] MEDS ORDERED: RINGERS SOLUTION,LACTATED 1,000 ML IV ONE (11:42)
[2018-04-28] MEDS ORDERED: BUTALB/ACETAMINOPHEN/CAFFEINE 1 TAB EACH PO ONE (14:15)
[2018-04-28] MEDS ORDERED: FERRIC CARBOXYMALTOSE 750 MG in NORMAL SALINE 250 ML IV ONE (15:00)
--- NOTE | 2018-04-28 17:14 | PDOC CONSULTATION ---
Consultation Consult Date: 04/28/18 Consult reason:: Heatology/Oncology consult was requested for patient with iron deficiency anemia, crohn's, and . History of Present Illness Admission Date/PCP: 04/28/18 11:10 History of Present Illness: HOMERO GROSSMAN is a 37 year old female who was diagnosed with Crohn's disease about 14 years ago. Since that time, she has only used steroids for flare ups but has not been on any regular medications for her Crohn's. She has been told that she was aneic for many years. She has been given iron pills, but these have never worked. She denies any other treatment for anemia. She has not required IV iron or blood transfusion. She has a well balanced diet with some meat, but she does not like to eat raw vegetables or nuts. Today, she states that she has never had a HGB this low. She has felt tired. She has restless legs. No cravings for ice. She is currently and is due in about 3 weeks. She received her first dose of injectafer earlier today and denies any problems with this. Past Medical History Pulmonary Medical History: Reports: Asthma, Bronchitis Denies: Tuberculosis Neurological Medical History: Reports: Migraine Endocrine Medical History: Comment Only: Diabetes Mellitus Type 2 - gestational dm GI Medical History: Reports: Crohn's Disease, Gastroesophageal Reflux Disease, Hiatal Hernia Musculoskeltal Medical History: Reports: Fibromyalgia Psychiatric Medical History: Reports: Depression Hematology: Reports: Anemia Infectious Medical History: Reports: Clostridium Difficile Past Surgical History Past Surgical History: Reports: Appendectomy - 02/16/2015, Tonsillectomy, Other - Sinus surgery Social History Information Source: Patient Lives with: Spouse/Significant other Smoking Status: Unknown if Ever Smoked Frequency of Alcohol Use: None Hx Recreational Drug Use: No Hx Prescription Drug Abuse: No Family History Parental Family History Reviewed: Yes - Cancers in Aunts and Uncles. Lupus, DM , Children Family History Reviewed: Yes Sibling(s) Family History Reviewed.: Yes Medication/Allergy Home Medications: Albuterol Sulfate [Proair HFA Inhalation Aerosol 8.5 gm MDI] 2 puff IH Q4HP PRN 04/28/18 Alprazolam [Xanax 0.25 mg Tablet] 0.25 mg PO BID 04/28/18 Fluticasone Propionate [Flonase Nasal Auxier 50 Mcg/Auxier 16 gm] 2 spray NASL Q12 04/28/18 Gabapentin [Neurontin 300 mg Capsule] 300 mg PO QHS 04/28/18 Mesalamine [Lialda] 2.4 gm PO DAILY 04/28/18 Mesalamine [Rowasa 1000 mg Supp.rect] 1,000 mg ID QHS 04/28/18 Metoclopramide HCl [Reglan] 5 mg PO Q8HP PRN 04/28/18 Ondansetron [Zofran Odt] 8 mg PO Q6HP PRN 04/28/18 Pantoprazole Sodium [Protonix] 40 mg PO DAILY 04/28/18 Sertraline HCl [Zoloft] 150 mg PO DAILY 04/28/18 Allergies/Adverse Reactions: doxycycline [Doxycycline] Allergy (Severe, Verified 04/28/18 07:29) Anaphylaxis ciprofloxacin [From Cipro] Allergy (Mild, Verified 04/28/18 07:29) Hives ciprofloxacin HCl [From Cipro] Allergy (Mild, Verified 04/28/18 07:29) Hives levofloxacin [From Levaquin] Allergy (Mild, Verified 04/28/18 07:29) muscle cramps Metronidazole HCl [From Flagyl] Allergy (Mild, Verified 04/28/18 07:29) VOMITING sulfamethoxazole [From Bactrim] Allergy (Mild, Verified 04/28/18 07:29) Hives trimethoprim [From Bactrim] Allergy (Mild, Verified 04/28/18 07:29) Hives metronidazole [Metronidazole] Adverse Reaction (Mild, Verified 04/28/18 07:29) Nausea NSAIDS (Non-Steroidal Anti-Inflamma Adverse Reaction (Verified 04/28/18 07:29) Review of Systems Constitutional: ABSENT: fever(s), headache(s) Eyes: ABSENT: visual disturbances Ears: ABSENT: hearing changes Nose, Mouth, and Throat: ABSENT: sore throat Cardiovascular: PRESENT: dyspnea on exertion Gastrointestinal: PRESENT: diarrhea. ABSENT: nausea Genitourinary: ABSENT: dysuria Integumentary: PRESENT: rash Neurological: PRESENT: weakness Psychiatric: PRESENT: anxiety, depression Hematologic/Lymphatic: ABSENT: lymphadenopathy Physical Exam Vital Signs: Temp Pulse Resp BP Pulse Ox 98.6 F 89 17 92/62 L 95 04/28/18 16:01 04/28/18 16:01 04/28/18 16:01 04/28/18 16:01 04/28/18 16:01 Intake & Output 04/27/18 04/28/18 04/29/18 06:59 06:59 06:59 Weight 93.7 kg General appearance: PRESENT: no acute distress Exam: Overweight, 37 year old female. and son at bedside Head exam: PRESENT: normocephalic Eye exam: PRESENT: EOMI, PERRLA Mouth exam: PRESENT: tongue midline Neck exam: ABSENT: lymphadenopathy, tenderness Respiratory exam: PRESENT: clear to auscultation jordan, unlabored Cardiovascular exam: PRESENT: RRR GI/Abdominal exam: PRESENT: soft, tenderness, other - Gravid uterus Extremities exam: ABSENT: pedal edema Musculoskeletal exam: PRESENT: normal inspection Neurological exam: PRESENT: alert, awake, oriented to person, oriented to place , oriented to time, oriented to situation Psychiatric exam: PRESENT: appropriate affect Focused psych exam: ABSENT: pressured speech, psychomotor agitation Skin exam: PRESENT: pallor. ABSENT: rash Results Laboratory Results: 04/28/18 04/28/18 04/28/18 07:45 07:45 10:15 Retic Count (auto) 2.91 H Absolute Retic 0.117 Iron 16.3 L TIBC 499 H % Saturation 3 Ferritin 5.78 L Vitamin B12 380.0 Folate 11.00 Urine Color COLORLESS Urine Appearance CLEAR Urine pH 6.0 Ur Specific [place] 1.008 Urine Protein NEGATIVE Urine Glucose (UA) NEGATIVE Urine Ketones NEGATIVE Urine Blood NEGATIVE Urine Nitrite NEGATIVE Ur Leukocyte Esterase NEGATIVE Blood Type Antibody Screen 04/28/18 13:13 Retic Count (auto) Absolute Retic Iron TIBC % Saturation Ferritin Vitamin B12 Folate Urine Color Urine Appearance Urine pH Ur Specific [place] Urine Protein Urine Glucose (UA) Urine Ketones Urine Blood Urine Nitrite Ur Leukocyte Esterase Blood Type A POSITIVE Antibody Screen NEGATIVE Assessment & Plan - Diagnosis (1) Crohn disease Qualifiers: Gastrointestinal tract location: large intestine Digestive disease complication type: without complication Qualified Code(s): K50.10 - Crohn's disease of large intestine without complications Is this a current diagnosis for this admission?: Yes Plan: She has been seeing Dr. Benítez. I am hopeful that she will be able to start a better regimen for her Crohn's in the future and try to avoid steroids as much as possible. We discussed EGD and colonoscopy. She states that this is planned after she delivers her baby. We also discussed the fact that often, patients with Crohns are unable to absorb oral iron tabs and IV iron is required. (2) Iron deficiency anemia due to dietary causes Is this a current diagnosis for this admission?: Yes Plan: Patient will stop her oral iron, as I don't think this has been effective. She received Injectafer x 1 today. She should receive her second dose in 7 days. I will try to arrange as outpatient. I would like to continue to monitor her with labs and will see her again in the office in 6-8 weeks. - Plan Summary Plan Summary: Thank you for this consultation. Please call me with any other questions or concerns. Patient was discussed with Dr. Norwood.
--- NOTE | 2018-04-28 19:04 | PDOC CONSULTATION ---
Consultation Consult Date: 04/28/18 History of Present Illness Admission Date/PCP: 04/28/18 11:10 History of Present Illness: HOMERO GROSSMAN is a 37 year old female Patient was admitted early on today with abdominal pain, diarrhea, and vomiting. She started having severe lower abdominal pain about 4 days ago that is crampy in nature, followed by bowel movements which does improve the pain. She was having significant diarrhea every day but has had no bowel movement for the last 12 hours. She had something to eat this evening and has had no bowel movement. She still has some pain but not as bad. She vomited 3 times over the last few days. No one has similar illness at home. 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 She has had endoscopies by Dr. Lo and Dr. Morocho over the years. I treated her proctitis with Canasa suppositories and Lialda about 6 months ago but patient has not taken any medications for many months. She started passing blood and mucus about 6 weeks ago with hard stools but over the last 2-1 /2 weeks she has been having multiple episodes of just passing blood and mucus on a daily basis. She also sees blood with wiping. She does have a history of hemorrhoids that was actually prolapsing during her recent episode of diarrhea. She has chronic constipation with one bowel movement a day Past Medical History Pulmonary Medical History: Reports: Asthma, Bronchitis Denies: Tuberculosis Neurological Medical History: Reports: Migraine Endocrine Medical History: Comment Only: Diabetes Mellitus Type 2 - gestational dm GI Medical History: Reports: Crohn's Disease, Gastroesophageal Reflux Disease, Hiatal Hernia Musculoskeltal Medical History: Reports: Fibromyalgia Psychiatric Medical History: Reports: Depression Hematology: Reports: Anemia Infectious Medical History: Reports: Clostridium Difficile Past Surgical History Past Surgical History: Reports: Appendectomy - 02/16/2015, Tonsillectomy, Other - Sinus surgery Social History Lives with: Spouse/Significant other Smoking Status: Unknown if Ever Smoked Frequency of Alcohol Use: None Hx Recreational Drug Use: No Hx Prescription Drug Abuse: No Family History Parental Family History Reviewed: No Children Family History Reviewed: NA Sibling(s) Family History Reviewed.: NA Medication/Allergy Home Medications: Albuterol Sulfate [Proair HFA Inhalation Aerosol 8.5 gm MDI] 2 puff IH Q4HP PRN 04/28/18 Alprazolam [Xanax 0.25 mg Tablet] 0.25 mg PO BID 04/28/18 Fluticasone Propionate [Flonase Nasal [place] 50 Mcg/[place] 16 gm] 2 spray NASL Q12 04/28/18 Gabapentin [Neurontin 300 mg Capsule] 300 mg PO QHS 04/28/18 Mesalamine [Lialda] 2.4 gm PO DAILY 04/28/18 Mesalamine [Rowasa 1000 mg Supp.rect] 1,000 mg [place] QHS 04/28/18 Metoclopramide HCl [Reglan] 5 mg PO Q8HP PRN 04/28/18 Ondansetron [Zofran Odt] 8 mg PO Q6HP PRN 04/28/18 Pantoprazole Sodium [Protonix] 40 mg PO DAILY 04/28/18 Sertraline HCl [Zoloft] 150 mg PO DAILY 04/28/18 Allergies/Adverse Reactions: doxycycline [Doxycycline] Allergy (Severe, Verified 04/28/18 07:29) Anaphylaxis ciprofloxacin [From Cipro] Allergy (Mild, Verified 04/28/18 07:29) Hives ciprofloxacin HCl [From Cipro] Allergy (Mild, Verified 04/28/18 07:29) Hives levofloxacin [From Levaquin] Allergy (Mild, Verified 04/28/18 07:29) muscle cramps Metronidazole HCl [From Flagyl] Allergy (Mild, Verified 04/28/18 07:29) VOMITING sulfamethoxazole [From Bactrim] Allergy (Mild, Verified 04/28/18 07:29) Hives trimethoprim [From Bactrim] Allergy (Mild, Verified 04/28/18 07:29) Hives metronidazole [Metronidazole] Adverse Reaction (Mild, Verified 04/28/18 07:29) Nausea NSAIDS (Non-Steroidal Anti-Inflamma Adverse Reaction (Verified 04/28/18 07:29) Review of Systems All systems: reviewed and no additional remarkable complaints except as stated Physical Exam Vital Signs: Temp Pulse Resp BP Pulse Ox 98.6 F 89 17 92/62 L 95 04/28/18 16:01 04/28/18 16:01 04/28/18 16:01 04/28/18 16:01 04/28/18 16:01 Intake & Output 04/27/18 04/28/18 04/29/18 06:59 06:59 06:59 Intake Total 700 Balance 700 Weight 93.7 kg Exam: General: Patient is alert and looks well. HEENT: There is pallor but no jaundice. PERRLA. Oropharynx normal Respiratory: No chest deformity. No respiratory distress. Chest wall palpitation was unremarkable. Breath sounds were normal Cardiovascular: Heart sounds 1 and 2 normal with no murmurs. Abdominal: She is 37 weeks . bowel sounds active. Rectal examination was deferred. Extremities: No edema Neurological: Alert and oriented x4. Grossly nonfocal. Normal speech Skin: No significant rash Psychological: Normal affect Results Laboratory Results: 04/28/18 04/28/18 04/28/18 07:45 07:45 10:15 Retic Count (auto) 2.91 H Absolute Retic 0.117 Iron 16.3 L TIBC 499 H % Saturation 3 Ferritin 5.78 L Vitamin B12 380.0 Folate 11.00 Urine Color COLORLESS Urine Appearance CLEAR Urine pH 6.0 Ur Specific Ward 1.008 Urine Protein NEGATIVE Urine Glucose (UA) NEGATIVE Urine Ketones NEGATIVE Urine Blood NEGATIVE Urine Nitrite NEGATIVE Ur Leukocyte Esterase NEGATIVE Blood Type Antibody Screen 04/28/18 13:13 Retic Count (auto) Absolute Retic Iron TIBC % Saturation Ferritin Vitamin B12 Folate Urine Color Urine Appearance Urine pH Ur Specific Ward Urine Protein Urine Glucose (UA) Urine Ketones Urine Blood Urine Nitrite Ur Leukocyte Esterase Blood Type A POSITIVE Antibody Screen NEGATIVE Assessment & Plan - Diagnosis (1) Ulcerative proctitis with rectal bleeding Is this a current diagnosis for this admission?: Yes Plan: Her symptoms of passing blood and mucus over the last few weeks is from her ulcerative proctitis. She has not been compliant with treatment over the years. I will treat with mesalamine enemas daily for the next month and every other day thereafter. She will need a colonoscopy after delivery (2) Gastroenteritis Is this a current diagnosis for this admission?: Yes Plan: Her complaint of diarrhea, vomiting, and abdominal pain over the last few days is most likely from an infectious gastroenteritis and not from colitis due to the short and temporary nature. She is doing better now with no diarrhea for the last 12 hours. I will continue conservative management for this. Encourage fluid intake (3) Iron deficiency anemia due to chronic blood loss Is this a current diagnosis for this admission?: Yes Plan: Probably related to her and rectal bleeding off-and-on for weeks (4) Bloody diarrhea Is this a current diagnosis for this admission?: Yes
[2018-04-28] MEDS ORDERED: MESALAMINE 4 GM/60 ML ENEMA PR SCH (20:00)
[2018-04-28] MEDS ORDERED: ACETAMINOPHEN 325 MG TABLET PO PRN (21:23)
[2018-04-28] MEDS: FLUTICASONE NASAL SPRAY 50 MCG/SPRY 120 SPRAY/16 GM NASL SCH (21:29)
[2018-04-28] MEDS ORDERED: GABAPENTIN 300 MG CAPSULE PO SCH (22:00)
[2018-04-29] MEDS: FLUTICASONE NASAL SPRAY 50 MCG/SPRY 120 SPRAY/16 GM NASL SCH (09:47)
[2018-04-29] MEDS ORDERED: ACETAMINOPHEN WITH CODEINE #3 TABLET PO ONE (13:02)
--- NOTE | 2018-04-29 13:10 | PDOC PROGRESS REPORT ---
Subjective Progress Note for:: 04/29/18 Subjective:: Patient states that she is ready to go home today; painful from intestinal discomfort; patient stated that she would rather be at home. Currently feels as if her diarrhea is restarting. Patient reports good movement and denies contractions. Reason For Visit: Physical Exam - Physical Exam Vital Signs: Temp Pulse Resp BP Pulse Ox 98.5 F 73 22 H 112/60 99 04/29/18 11:43 04/29/18 11:43 04/29/18 11:43 04/29/18 11:43 04/29/18 11:43 Intake & Output 04/28/18 04/29/18 04/30/18 06:59 06:59 06:59 Intake Total 1700 Balance 1700 Weight 93.7 kg General appearance: PRESENT: no acute distress Respiratory exam: PRESENT: clear to auscultation jordan Cardiovascular exam: PRESENT: RRR GI/Abdominal exam: PRESENT: normal bowel sounds, soft, tenderness - Tenderness in left lower quadrant Extremities exam: ABSENT: calf tenderness, clubbing, full ROM, joint swelling, pedal edema, tenderness, +1 edema, +2 edema, other Result Laboratory Results: 04/28/18 13:13 Blood Type A POSITIVE Antibody Screen NEGATIVE Assessment & Plan - Diagnosis (1) Iron deficiency anemia due to chronic blood loss Is this a current diagnosis for this admission?: Yes (2) Ulcerative proctitis with rectal bleeding Is this a current diagnosis for this admission?: Yes (3) Anemia Qualifiers: Anemia type: iron deficiency Iron deficiency anemia type: other iron deficiency Qualified Code(s): D50.8 - Other iron deficiency anemias Is this a current diagnosis for this admission?: Yes (4) Bloody diarrhea Is this a current diagnosis for this admission?: Yes (5) Crohn's colitis Qualifiers: Digestive disease complication type: unspecified complication Qualified Code(s): K50.119 - Crohn's disease of large intestine with unspecified complications Is this a current diagnosis for this admission?: Yes (6) Crohn disease Qualifiers: Gastrointestinal tract location: large intestine Digestive disease complication type: without complication Qualified Code(s): K50.10 - Crohn's disease of large intestine without complications Is this a current diagnosis for this admission?: Yes - Plan Summary Plan Summary: Plan: 1. at 37 weeks--good movement and no contractions 2. Anemia--stable 3. Persistent diarrhea--resolving 4. Intestinal discomfort--will try Tylenol with codeine which worked well for her at home 5. Patient would like to go home today--if pain medicine works, she can be discharged
[2018-04-29] MEDS ORDERED: ACETAMINOPHEN WITH CODEINE #3 TABLET ONE (13:14)
[2018-04-29 16:04] VITALS: BP 104/55
--- NOTE | 2018-05-05 14:33 | PDOC DISCHARGE SUMMARY ---
General - Admit/Disc Date/PCP Admission Date/Primary Care Provider: 04/28/18 11:10 Discharge Date: 04/29/18 - Discharge Diagnosis (1) Iron deficiency anemia due to chronic blood loss Is this a current diagnosis for this admission?: Yes (2) Ulcerative proctitis with rectal bleeding Is this a current diagnosis for this admission?: Yes (3) Anemia Is this a current diagnosis for this admission?: Yes (4) Bloody diarrhea Is this a current diagnosis for this admission?: Yes (5) Crohn's colitis Is this a current diagnosis for this admission?: Yes (6) Crohn disease Is this a current diagnosis for this admission?: Yes - Additional Information Discharge Diet: Diabetic Discharge Activity: Activity As Tolerated Home Medications: Albuterol Sulfate [Proair HFA Inhalation Aerosol 8.5 gm MDI] 2 puff IH Q4HP PRN 04/28/18 Alprazolam [Xanax 0.25 mg Tablet] 0.25 mg PO BID 04/28/18 Fluticasone Propionate [Flonase Nasal [place] 50 Mcg/[place] 16 gm] 2 spray NASL Q12 04/28/18 Gabapentin [Neurontin 300 mg Capsule] 300 mg PO QHS 04/28/18 Mesalamine [Lialda] 2.4 gm PO DAILY 04/28/18 Mesalamine [Rowasa 1000 mg Supp.rect] 1,000 mg [place] QHS 04/28/18 Metoclopramide HCl [Reglan] 5 mg PO Q8HP PRN 04/28/18 Ondansetron [Zofran Odt] 8 mg PO Q6HP PRN 04/28/18 Pantoprazole Sodium [Protonix] 40 mg PO DAILY 04/28/18 Sertraline HCl [Zoloft] 150 mg PO DAILY 04/28/18 Mesalamine [Rowasa 4 gm/60 ml Enema] 4 gm [place] DAILY@2000 enema 04/29/18 History of Present Illness Patient complains of: Bloody, mucousy diarrhea for several days History of Present Illness: HOMERO GROSSMAN is a 37 year old with 37 weeks, presented to the emergency department for persistent bloody, mucousy diarrhea for several days. This patient has a diagnosis of Crohn's disease. She states that she had a flare in January. Her GI physician, Dr. Iraheta, placed on steroids and she did not want her to continue use. In fact, she does admit to her noncompliance with his medication recommendations. She was seen in the office with a hemoglobin of 7.5. The office was trying to arrange for an iron infusion Hospital Course Hospital Course: The hospital course was essentially uneventful besides her intestinal discomfort. Her persistent diarrhea resolved when she was admitted to the the floor. However, her intestinal discomfort continued. She did receive an IV iron infusion after being seen by heme/onc. Patient wanted to go home and did not eat while admitted. Physical Exam - Physical Exam Vital Signs: Temp Pulse Resp BP Pulse Ox 98.3 F 83 20 104/55 L 100 04/29/18 16:38 04/29/18 16:38 04/29/18 16:38 04/29/18 16:38 04/29/18 16:38 General appearance: PRESENT: no acute distress Respiratory exam: PRESENT: clear to auscultation jordan Cardiovascular exam: PRESENT: RRR GI/Abdominal exam: PRESENT: hyperactive bowel sounds, tenderness - Tenderness, especially in the right flank. Her diarrhea resolved Gentrourinary exam: ABSENT: ecchymosis, erythema, lacerations, lesions, scrotal swelling, testicular tenderness, urethral discharge, indwelling catheter, other Plan Discharge Plan: Plan: 1. Discharge home, if Tylenol with codeine helps with pain (prescription given) 2. Follow-up in the office as scheduled for her twice weekly NSTs and once weekly JUDITH 3. Patient is to continue her blood sugar checks 4. Stay hydrated Time Spent: Greater than 30 Minutes - Patient expressed understanding of the discharge plan. However, this patient is very anxious and required extensive reassurance. Patient informed that she will be delivered at 39 weeks.
== END 2018-04-29 16:57 | disposition home or self-care (01) | DRG 832 ==
LOC: LC 09:52 → LR 11:10 → 2S 13:00
PROVIDERS: ADMIT Student in an Organized Health Care Education/Training Program; ATTEND Student in an Organized Health Care Education/Training Program
DX: O99.613 Diseases of the digestive system complicating pregnancy, third trimester (principal); D68.61 Antiphospholipid syndrome; K50.911 Crohn's disease, unspecified, with rectal bleeding; O99.113 Other diseases of the blood and blood-forming organs and certain disorders involving the immune mechanism complicating pregnancy, third trimester; O99.013 Anemia complicating pregnancy, third trimester; D50.9 Iron deficiency anemia, unspecified; O24.410 Gestational diabetes mellitus in pregnancy, diet controlled; O99.343 Other mental disorders complicating pregnancy, third trimester; F41.8 Other specified anxiety disorders; O99.513 Diseases of the respiratory system complicating pregnancy, third trimester; J45.909 Unspecified asthma, uncomplicated; Z3A.37 37 weeks gestation of pregnancy; O09.523 Supervision of elderly multigravida, third trimester
CPT/HCPCS: 36415; 59025; 80307; 81005; 82607; 82728; 82746; 82962; 83540; 83550; 85045; 86850; 86900; 86901; J1439; J3490; J7050; J7120

== ENCOUNTER 2018-05-06 04:14 | Inpatient (IN) | payer OTHER ==
--- NOTE | 2018-05-06 04:18 | Non Stress Test Report ---
Non Stress Test Datetime Report Generated by CPN: 05/06/2018 04:18 DEMOGRAPHIC EGA NST: 37.0 INDICATION Indication for Study: Ordered by Provider MONITORING Monitor Explained: Monitor Explained; Test Explained; Patient Verbalized Understanding Time on Monitor: 04/28/2018 11:38 Time off Monitor: 04/28/2018 12:22 NST Duration: 44 NST INTERVENTIONS NST Interventions: PO Hydration; Reposition Patient Physician Notified NST: N Leslie CNM BABY A: [id number] BABY A Movement : Present Contraction Frequency : rare FHR Baseline : 135 Accelerations : 15X15 Decelerations : None Variability : Moderate 6-25bpm NST Review: Meets Criteria for Reactive NST NST Review and Verified By : MARISELA Amor Results: Reactive NST REPORT Report Trigger: Send Report
[2018-05-06 05:00] LABS: APPEARANCE,URINE SLIGHTLY-CLOUDY; BILIRUBIN,URINE NEGATIVE (NEGATIVE); COLOR,URINE YELLOW; GLUCOSE, URINE NEGATIVE (NEGATIVE); KETONES,URINE NEGATIVE (NEGATIVE); LEUKOCYTE ESTERASE,URINE TRACE (NEGATIVE); NITRITE,URINE NEGATIVE (NEGATIVE); PROTEIN,URINE 30 mg/dL (NEGATIVE); URINE SPECIFIC GRAVITY 1.018; UROBILINOGEN,URINE NEGATIVE mg/dL (<2.0)
[2018-05-06] MEDS ORDERED: RINGERS SOLUTION,LACTATED 1,000 ML IV PRN (05:11)
[2018-05-06] MEDS ORDERED: RINGERS SOLUTION,LACTATED 1,000 ML IV ONE (05:11)
[2018-05-06 05:15] LABS: URINE AMPHETAMINES SCREEN NEGATIVE; URINE COCAINE SCREEN NEGATIVE; URINE MARIJUANA (THC) SCREEN NEGATIVE; URINE METHADONE SCREEN NEGATIVE; URINE PHENCYCLIDINE SCREEN NEGATIVE
[2018-05-06] MEDS ORDERED: NALBUPHINE HCL INJ 10 MG/1 ML AMPULE INJ ONE (05:40)
[2018-05-06] MEDS ORDERED: PROMETHAZINE HCL INJ 25 MG/1 ML VIAL IV ONE (05:40)
[2018-05-06] MEDS ORDERED: OXYTOCIN/NORMAL SALINE 20 UNIT/1,000 ML RTUINJ IV PRN ×2 (05:41→11:54)
[2018-05-06 05:45] LABS: URINE BARBITURATES SCREEN UNCONFIRMED POSITIVE; URINE BENZODIAZEPINES SCREEN UNCONFIRMED POSITIVE
[2018-05-06] MEDS ORDERED: ONDANSETRON HCL INJ/PF 4 MG/2 ML SDV IV ONE (05:51)
[2018-05-06] MEDS ORDERED: NALBUPHINE HCL INJ 10 MG/1 ML AMPULE ONE (06:22)
[2018-05-06] MEDS ORDERED: ONDANSETRON HCL 8 MG TABLET ONE (06:22)
[2018-05-06] MEDS ORDERED: ONDANSETRON HCL INJ/PF 4 MG/2 ML SDV ONE (06:23)
[2018-05-06 06:24] LABS: HEMATOCRIT 31.4 % (36.0-47.0); HEMOGLOBIN 9.9 g/dL (12.0-15.5); MEAN CORPUSCULAR HGB CONC 31.6 g/dL (32.0-36.0); PLATELET COUNT 276 10^3/uL (150-450); RED BLOOD COUNT 4.51 10^6/uL (3.72-5.28); RED CELL DISTRIBUTION WIDTH 18.7 % (11.5-14.0); WHITE BLOOD COUNT 16.3 10^3/uL (4.0-10.5)
[2018-05-06] MEDS ORDERED: OXYTOCIN/NORMAL SALINE 0 UNIT/0 ML RTUINJ ONE (06:30)
[2018-05-06 06:35] LABS: ALANINE AMINOTRANSFERASE 13 U/L (9-52); ALBUMIN 3.7 g/dL (3.5-5.0); ALKALINE PHOSPHATASE 163 U/L (38-126); ANION GAP 14 (5-19); ASPARTATE AMINO TRANSFERASE 22 U/L (14-36); BILIRUBIN,DIRECT 0.2 mg/dL (0.0-0.4); BILIRUBIN,TOTAL 0.3 mg/dL (0.2-1.3); BLOOD UREA NITROGEN 9 mg/dL (7-20); CALCIUM 9.2 mg/dL (8.4-10.2); CARBON DIOXIDE 20 mmol/L (22-30); CHLORIDE 107 mmol/L (98-107); GLUCOSE 81 mg/dL (75-110); POTASSIUM 4.4 mmol/L (3.6-5.0); SODIUM 140.7 mmol/L (137-145); TOTAL PROTEIN 6.6 g/dL (6.3-8.2)
[2018-05-06 06:36] LABS: MEAN CORPUSCULAR VOLUME 70 fl (80-97)
[2018-05-06 06:43] LABS: ABSOLUTE LYMPHOCYTES# (MANUAL) 4.1 10^3/uL (0.5-4.7); ABSOLUTE MONOCYTES # (MANUAL) 1.6 10^3/uL (0.1-1.4); ABSOLUTE NEUTROPHILS# (MANUAL) 10.1 10^3/uL (1.7-8.2); BAND NEUTROPHILS % (MANUAL) 1 % (3-5); BASOPHILS % (MANUAL) 0 % (0-2); EOSINOPHILS % (MANUAL) 3 % (0-6); LYMPHOCYTES % (MANUAL) 24 % (13-45); MONOCYTES % (MANUAL) 10 % (3-13); SEGMENTED NEUTROPHILS % (MAN) 61 % (42-78); TOTAL CELLS COUNTED 100
[2018-05-06 06:45] LABS: ANISOCYTOSIS 2+; PLATELET COMMENT ADEQUATE; POLYCHROMASIA 1+
--- NOTE | 2018-05-06 06:55 | Admission Physical ---
Datetime Report Generated by CPN: 05/06/2018 06:55 CURRENT ADMISSION Chief Complaint: Uterine Contractions; Suspected Ruptured Membranes Chief Complaint Other: Chrons Flare and anemia Indication for Induction: Maternal Diabetes Indication for Induction- Other: Severe Anemia Admit Impression : Term, Intrauterine Admit Plan: Admit to Unit; Initiate Labor Induction Protocol ALLERGIES Medication Allergies: Yes Medication Allergies: Metronidazole HCl/PR/VOMITING (05/06/2018); ciprofloxacin HCl/PR/Hives (05/06/2018); NSAIDS (Non-Steroidal Anti-Inflamma (05/06/2018); doxycycline/SV/Anaphylaxis (05/06/2018); sulfamethoxazole/PR/Hives (05/06/2018); trimethoprim/PR/Hives (05/06/2018); ciprofloxacin/PR/Hives (05/06/2018); metronidazole/PR/Nausea (05/06/2018); levofloxacin/PR/muscle cramps (05/06/2018) Latex: No Latex Allergies Food Allergies: n/a Environmental Allergies: n/a OBSTETRICAL HISTORY EDC: 05/19/2018 00:00 : 3 Para: 2 Term: 2 : 0 SAB: 0 IAB: 0 Ectopic: 0 Livin Cesareans: 0 VBACs: 0 Multiple Births: 0 Gestational Diabetes: Yes Rh Sensitization: No Incompetent Cervix: No ANDRAE: No Infertility: No ART Treatment: No Uterine Anomaly: No IUGR: No Hx Previous C/S: No Macrosomia: No Hx Loss/Stillborn: No PIH: No Hx : No Placenta Previa/Abruption: No Depression/PP Depression: Yes PTL/PROM: No Post Hemorrhage: No Current Procedures: Ultrasound; NST Obstetrical History Comments: G1 2007 37.1 weeks boy 7lb 2 oz G2 2014 38.1 weeks boy 7 lb 3 oz G3 current SEE RECORDS Alcohol: No Marijuana : No Cocaine: No Other Illicit Drugs: No Cigarettes: Never Smoker. [id number] MEDICAL HISTORY Diabetes: No Diabetes Type: Gestational Diabetes Blood Transfusion: No Pulmonary Disease (Asthma, TB): Yes Breast Disease: No Hypertension: No Orthophoto Tech/[place] Surgery: No Heart Disease: No Hosp/Surgery: Yes Autoimmune Disorder: No Anesthetic Complications: No Kidney Disease: No Abnormal Pap Smear: No Neuro/Epilepsy: No Psychiatric Disorders: No Other Medical Diseases: Yes Hepatitis/Liver Disease: No Significant Family History: No Varicosities/Phlebitis: No Trauma/Violence : No Thyroid Dysfunction: No Medical History Comments: Crohn's disease, chronic migraines, anemia, Sinus surgeries, Appendecitis, carpal tunnel, gallstones, frequent UTI, bladder dysfunction, anxiety, chronic bronchitis, sinusitis, rhinitis, asthma INFECTIOUS HISTORY Gonorrhea: No Genital Herpes: No Chlamydia: No Tuberculosis: No Syphilis: No Hepatitis: No HIV/AIDS Exposure: No Rash or Viral Illness: No HPV: No PHYSICAL EXAM General: Normal HEENT: Normal Neurologic: Normal Thyroid: Normal Heart: Normal Lungs: Normal Breast: Normal Back: Normal Abdomen: Normal Genitourinary Exam: Normal Extremities: Normal DTRs: Normal Pelvic Type: Adequate Vital Signs: Reviewed; Within Normal Limits VAGINAL EXAM Dilatation: 3 Effacement: 50% Station: -3 Contraction Comments: irregular MEMBRANES Pooling: Positive Membranes: Ruptured Amniotic Fluid Color: Clear FETUS A EGA: 38.1 Monitoring: External US FHR- Baseline: 120s Accelerations: 15X15 Decelerations: None FHR Category: Category I Presentation: Vertex Admit Comment: Pt has Crohns and has severe anemia secondary to persistant rectal bleeding, PLANS FOR LABOR AND DELIVERY Labor and Delivery: None Pain Management: Epidural Feeding Preference: Formula Benefit of Breast Feed Discussed: Yes Circumcision: Yes INFORMED CONSENT Informed Consent Obtained: Risks, Benefits and Alternatives Discussed Signature: with User ID: [email or web address]
[2018-05-06] MEDS ORDERED: MISOPROSTOL 0.2 MG TABLET ONE (09:32)
[2018-05-06] MEDS ORDERED: EPHEDRINE SULFATE INJ 50 MG/1 ML AMPULE ONE (09:32)
[2018-05-06] MEDS ORDERED: OXYTOCIN 10 UNIT/ML VIAL ONE (09:32)
[2018-05-06] MEDS ORDERED: FENTANYL/BUPIVACAINE/NS/PF 300 MCG/150 ML RTUINJ EPI ONE (09:32)
[2018-05-06] MEDS ORDERED: OXYTOCIN/NORMAL SALINE 20 UNIT/1,000 ML RTUINJ ONE (09:33)
[2018-05-06] MEDS ORDERED: LIDOCAINE 1% INJ-PF (10 MG/ML) 30 ML SDV ONE (09:33)
[2018-05-06] MEDS ORDERED: BUPIVACAINE HCL 0.5 % INJ/PF 30 ML SDV ONE (09:33)
[2018-05-06] MEDS: IBUPROFEN 800 MG TABLET PO SCH ×2 (10:02→17:05)
[2018-05-06] MEDS ORDERED: ALBUTEROL SULFATE HFA (90 MCG/PUFF) 200 PUFF/8.5 GM MDI IH PRN (11:53)
[2018-05-06] MEDS ORDERED: ZOLPIDEM TARTRATE 5 MG TABLET PO PRN (11:54)
[2018-05-06] MEDS ORDERED: BENZOCAINE/MENTHOL AEROSOL SPRAY 56 ML TOP PRN (11:54)
[2018-05-06] MEDS ORDERED: PROMETHAZINE HCL INJ 25 MG/1 ML VIAL IV PRN (11:54)
[2018-05-06] MEDS ORDERED: PSEUDOEPHEDRINE HCL 30 MG TABLET PO PRN (11:54)
[2018-05-06] MEDS ORDERED: DIBUCAINE 1% OINTMENT 28 GM TP PRN (11:54)
[2018-05-06] MEDS ORDERED: MEASLES,MUMPS&RUBELLA VACC/PF 0.5 ML VIAL SUBCUT PRN (11:54)
[2018-05-06] MEDS ORDERED: ACETAMINOPHEN WITH CODEINE #3 TABLET PO PRN (11:54)
[2018-05-06] MEDS ORDERED: DIPH/PERTUSS(ACELL)/TETANUS VAC/PF 0.5 ML SYR (>=10YO) IM PRN (11:54)
[2018-05-06] MEDS ORDERED: MAGNESIUM HYDROXIDE SUSP 30 ML UDCUP PO PRN (11:54)
[2018-05-06] MEDS ORDERED: PROMETHAZINE HCL 25 MG TABLET PO PRN (11:54)
[2018-05-06] MEDS ORDERED: NA PHOS,M-B/NA PHOS,DI-BA (ADULT) 133 ML ENEMA PR PRN (11:54)
[2018-05-06] MEDS ORDERED: GLYCERIN/WITCH HAZEL LEAF 1 EACH MED..PAD TP PRN (11:54)
[2018-05-06] MEDS ORDERED: DIPHENHYDRAMINE HCL 25 MG CAPSULE PO PRN (11:54)
[2018-05-06] MEDS ORDERED: ACETAMINOPHEN 650 MG SUPP.RECT PR PRN (11:54)
[2018-05-06] MEDS ORDERED: PROMETHAZINE HCL 25 MG SUPP.RECT PR PRN (11:54)
[2018-05-06] MEDS ORDERED: METOCLOPRAMIDE HCL 10 MG TABLET PO PRN (12:08)
[2018-05-06] MEDS ORDERED: ONDANSETRON 4 MG TAB.RAPDIS PO PRN (12:08)
[2018-05-06] MEDS ORDERED: ACETAMINOPHEN WITH CODEINE #3 TABLET ONE (12:37)
[2018-05-06] MEDS: ACETAMINOPHEN WITH CODEINE #3 TABLET PO PRN ×2 (12:40→17:06)
--- NOTE | 2018-05-06 14:20 | Delivery Summary ---
Del Sum A-C Datetime Report Generated by CPN: 05/06/2018 14:19 DELIVERY PERSONNEL DELIVERY PERSONNEL: [id number] Delivery Doctor:: Rosangela Huff MD Labor and Delivery Nurse:: Cody Ovalle RNnetwork control supervisor Nurse:: Lana Norton RN Nursery Nurse:: Lizbeth Anderson RN Nursery Nurse:: Aleyda Silva RN Milk Processing Worker/PHYSICAL THERAPY SUPERVISOR: Zofia Miller CNA II MATERNAL INFORMATION Delivery Anesthesia: Epidural Medications After Delivery: Pitocin Bolus-Please Comment Estimated Blood Loss (ml): 250 Maternal Complications: None LABOR SUMMARY EDC: 05/19/2018 00:00 No. Babies in Womb: 1 Attempted: No Labor Anesthesia: Epidural LABOR INFORMATION Reason for Induction: Not Applicable Onset of Labor: 05/06/2018 10:11 Complete Dilatation: 05/06/2018 11:21 Oxytocin: Augmentation Group B Beta Strep: Negative Antibiotics # of Doses: 0 Steroids Given: None Reason Steroids Not Administered: Not Applicable MEMBRANES Membranes Rupture Method: Spontaneous Rupture of Membranes: 05/06/2018 03:00 Length of Rupture (hr): 8.65 Amniotic Fluid Color: Clear Amniotic Fluid Amount: Small Amniotic Fluid Odor: Normal STAGES OF LABOR Stage 1 hr: 1 Stage 1 min: 10 Stage 2 hr: 0 Stage 2 min: 18 Stage 3 hr: 0 Stage 3 min: 5 Total Time in Labor hr: 1 Total Time in Labor min: 33 VAGINAL DELIVERY Episiotomy: None Laceration #1: Vaginal Laceration Extension #1: N/A Laceration #2: Vaginal Laceration Extension #2: N/A Laceration #3: None Laceration Extension #3: N/A Laceration Repair: Yes Laceration Repair Note: small labial lacs repaired with 3-0 chromic suture Sponge Count Correct: Vaginal Sweep Performed Sharps Count Correct: Yes CSECTION DELIVERY Primary Indication: N/A Secondary Indication: N/A CSection Incidence: N/A Labor: N/A Elective: N/A CSection Incision: N/A BABY A INFORMATION Delivery Date/Time: 05/06/2018 11:39 Method of Delivery: Vaginal Born in Route : No : N/A Forceps: N/A Vacuum Extraction: N/A Shoulder Dystocia : No PRESENTATION/POSITION BABY A Presentation: Cephalic Cephalic Presentation: Vertex Vertex Position: Left Occipital Anterior Breech Presentation: N/A PLACENTA INFORMATION BABY A Placenta Delivery Time : 05/06/2018 11:44 Placenta Method of Delivery: Spontaneous Placenta Status: Delivered SCORES BABY A Heart Rate 1 min: >100 bpm Resp Effort 1 min: Good Cry Reflex Irritability 1 min: Cough or Sneeze or Pulls Away Muscle Tone 1 min: Some Flexion of Extremities Color 1 min: Body Paden, Extremities Blue Resuscitation Effort 1 min: Tactile Stimulation SCORE 1 MIN: 8 Heart Rate 5 min: >100 bpm Resp Effort 5 min: Good Cry Reflex Irritability 5 min: Cough or Sneeze or Pulls Away Muscle Tone 5 min: Active Motion Color 5 min: Body Paden, Extremities Blue Resuscitation Effort 5 min: Tactile Stimulation SCORE 5 MIN: 9 INFANT INFORMATION BABY A Gestational Age at Delivery: 38.1 Gestational Status: Early Term- 37- 38.6 Weeks Infant Outcome : Liveborn Condition : Stable Sex: Male IDENTIFICATION BABY A Infant Verification Date/Time: 05/06/2018 12:06 ID Band Number: [id number] Mother's Name Verified: Yes Infant RN Verifying Infant: Walter Ovalle RN/ walter Anderson RN WEIGHT/LENGTH BABY A Infant Birthweight (gm): 3190 Weight (lb): 7 Infant Weight (oz): 1 Length (in): 19.50 Infant Length (cm): 49.53 CORD INFORMATION BABY A No. Cord Vessels: 3 Nuchal Cord : N/A Cord Blood Taken: Yes-For Storage (Mom's Blood type +) Suction: None ASSESSMENT BABY A Infant Complications: None Physical Findings at Delivery: Within Normal Limits Skin to Skin: Yes Care By: Marilyn Silva RN Transferred To: Remains with Mother SIGNATURES Signature: with User ID: [email or web address]
[2018-05-06] MEDS: DOCUSATE SODIUM 100 MG CAPSULE PO SCH (17:07)
[2018-05-06] MEDS: ALPRAZOLAM 0.25 MG TABLET PO SCH (17:07)
[2018-05-06] MEDS: FERROUS SULFATE 325 MG TABLET PO SCH (17:07)
[2018-05-06] MEDS: FAMOTIDINE 20 MG TABLET PO SCH (21:33)
[2018-05-06] MEDS: GABAPENTIN 300 MG CAPSULE PO SCH (21:33)
[2018-05-06] MEDS: FLUTICASONE NASAL SPRAY 50 MCG/SPRY 120 SPRAY/16 GM NASL SCH (21:35)
[2018-05-07] MEDS: ACETAMINOPHEN WITH CODEINE #3 TABLET PO PRN ×4 (02:00→21:31)
[2018-05-07] MEDS: IBUPROFEN 800 MG TABLET PO SCH ×3 (06:15→21:29)
[2018-05-07 07:36] LABS: HEMATOCRIT 25.3 % (36.0-47.0); MEAN CORPUSCULAR HEMOGLOBIN 22.2 pg (27.0-33.4); MEAN CORPUSCULAR HGB CONC 31.4 g/dL (32.0-36.0); MEAN CORPUSCULAR VOLUME 71 fl (80-97); PLATELET COUNT 237 10^3/uL (150-450); RED BLOOD COUNT 3.58 10^6/uL (3.72-5.28); RED CELL DISTRIBUTION WIDTH 19.2 % (11.5-14.0)
[2018-05-07 07:42] LABS: HEMOGLOBIN 7.9 g/dL (12.0-15.5)
[2018-05-07] MEDS: LANSOPRAZOLE 30 MG TAB.RAP.DR PO SCH (08:36)
[2018-05-07] MEDS ORDERED: NORMAL SALINE 250 ML IV PRN (08:43)
[2018-05-07] MEDS: DOCUSATE SODIUM 100 MG CAPSULE PO SCH ×2 (09:00→19:29)
[2018-05-07] MEDS: ALPRAZOLAM 0.25 MG TABLET PO SCH ×2 (09:00→17:13)
[2018-05-07] MEDS: FERROUS SULFATE 325 MG TABLET PO SCH ×2 (09:00→17:13)
[2018-05-07] MEDS: FLUTICASONE NASAL SPRAY 50 MCG/SPRY 120 SPRAY/16 GM NASL SCH ×2 (09:01→21:32)
[2018-05-07] MEDS: FAMOTIDINE 20 MG TABLET PO SCH ×2 (09:02→21:31)
[2018-05-07] MEDS: SENNOSIDES/DOCUSATE 8.6-50 MG 1 EACH TABLET PO SCH (09:05)
[2018-05-07] MEDS: PRENATAL VITAMIN W DHA CAPSULE PO SCH (09:05)
--- NOTE | 2018-05-07 09:33 | PDOC PROGRESS REPORT ---
Subjective Progress Note for:: 05/07/18 Subjective:: Patient states that she feels good; decreasing lochia. Patient denies chest pain, shortness of breath, fever/chills or nausea/vomiting. She is ambulating voiding without difficulty. Diarrhea has decreased Reason For Visit: Physical Exam - Physical Exam Vital Signs: Temp Pulse Resp BP Pulse Ox 98.3 F 82 16 101/59 L 99 05/07/18 07:46 05/07/18 07:46 05/07/18 07:46 05/07/18 07:46 05/07/18 07:46 Intake & Output 05/06/18 05/07/18 05/08/18 06:59 06:59 06:59 Intake Total 400 Balance 400 Weight 93 kg General appearance: PRESENT: no acute distress Respiratory exam: PRESENT: clear to auscultation jordan Cardiovascular exam: PRESENT: RRR GI/Abdominal exam: PRESENT: normal bowel sounds, soft Extremities exam: ABSENT: calf tenderness, clubbing, full ROM, joint swelling, pedal edema, tenderness, +1 edema, +2 edema, other Result Laboratory Results: 05/07/18 07:10 05/06/18 05:59 05/06/18 05/07/18 05:59 07:10 WBC 14.0 H RBC 3.58 L Hgb 7.9 L Hct 25.3 L MCV 71 L MCH 22.2 L MCHC 31.4 L RDW 19.2 H Plt Count 237 Blood Type A POSITIVE Antibody Screen NEGATIVE Assessment & Plan - Diagnosis (1) Normal spontaneous vaginal delivery Is this a current diagnosis for this admission?: Yes (2) Spontaneous rupture of membranes Is this a current diagnosis for this admission?: Yes (3) Transfusion of blood during current hospitalisation Is this a current diagnosis for this admission?: Yes (4) Iron deficiency anemia due to chronic blood loss Is this a current diagnosis for this admission?: Yes (5) Crohn disease Qualifiers: Gastrointestinal tract location: large intestine Digestive disease complication type: without complication Qualified Code(s): K50.10 - Crohn's disease of large intestine without complications Is this a current diagnosis for this admission?: Yes - Time Time Spent with patient: 15-24 minutes - Explaining to the patient that she should get 1 unit of blood prior to discharge secondary to her persistent bloody diarrhea. I explained to her that she will receive constant surveillance during the transfusion. - Plan Summary Plan Summary: Plan: 1. Status post normal spontaneous vaginal delivery--doing well 2. Anemia--will receive 1 unit of packed red blood cells 3. Continue care
[2018-05-07] MEDS ORDERED: SERTRALINE HCL 50 MG TABLET PO SCH ×2 (10:00→22:00)
[2018-05-07] MEDS: GABAPENTIN 300 MG CAPSULE PO SCH (21:31)
[2018-05-08] MEDS: ACETAMINOPHEN WITH CODEINE #3 TABLET PO PRN ×2 (02:52→10:02)
[2018-05-08] MEDS: IBUPROFEN 800 MG TABLET PO SCH (05:59)
[2018-05-08] MEDS: SENNOSIDES/DOCUSATE 8.6-50 MG 1 EACH TABLET PO SCH (09:57)
[2018-05-08] MEDS: LANSOPRAZOLE 30 MG TAB.RAP.DR PO SCH (09:57)
[2018-05-08] MEDS: FERROUS SULFATE 325 MG TABLET PO SCH (09:57)
[2018-05-08] MEDS: PRENATAL VITAMIN W DHA CAPSULE PO SCH (09:57)
[2018-05-08] MEDS: FAMOTIDINE 20 MG TABLET PO SCH (09:58)
[2018-05-08] MEDS: DOCUSATE SODIUM 100 MG CAPSULE PO SCH (09:58)
[2018-05-08] MEDS: ALPRAZOLAM 0.25 MG TABLET PO SCH (10:03)
--- NOTE | 2018-05-08 10:13 | PDOC DISCHARGE SUMMARY ---
Final Diagnosis Discharge Date: 05/08/18 - Final Diagnosis (1) Drug use affecting Is this a current diagnosis for this admission?: Yes (2) Iron deficiency anemia due to chronic blood loss Is this a current diagnosis for this admission?: Yes (3) Normal spontaneous vaginal delivery Is this a current diagnosis for this admission?: Yes (4) Transfusion of blood during current hospitalisation Is this a current diagnosis for this admission?: Yes (5) Crohn disease Is this a current diagnosis for this admission?: Yes Discharge Data - Discharge Medication Prescriptions: Acetaminophen with Codeine [Tylenol #3 Tablet] 1 each PO Q4HP PRN #30 tablet PRN Reason: Ferrous Sulfate [Feosol 325 mg Tablet] 325 mg PO BID #60 tablet Home Medications: Albuterol Sulfate [Proair HFA Inhalation Aerosol 8.5 gm MDI] 2 puff IH Q4HP PRN 04/28/18 Alprazolam [Xanax 0.25 mg Tablet] 0.25 mg PO BID 04/28/18 Fluticasone Propionate [Flonase Nasal [place] 50 Mcg/[place] 16 gm] 2 spray NASL Q12 04/28/18 Gabapentin [Neurontin 300 mg Capsule] 300 mg PO QHS 04/28/18 Mesalamine [Lialda] 2.4 gm PO DAILY 04/28/18 Pantoprazole Sodium [Protonix] 40 mg PO DAILY 04/28/18 Acetaminophen with Codeine [Tylenol #3 Tablet] 1 each PO Q4HP PRN #30 tablet Alprazolam [Xanax 0.25 mg Tablet] 0.25 mg PO BID tablet 05/08/18 Ferrous Sulfate [Feosol 325 mg Tablet] 325 mg PO BID #60 tablet 05/08/18 Sertraline HCl [Zoloft 50 mg Tablet] 150 mg PO QHS tablet 05/08/18 Procedures: NST Intrapartum Procedure(s): Spontaneous Vaginal Delivery Complication(s): Laceration-Labial - Diagnosis Test Laboratory: Temp Pulse Resp BP Pulse Ox 98.4 F 68 18 109/59 L 98 05/08/18 07:57 05/08/18 07:57 05/08/18 07:57 05/08/18 07:57 05/08/18 07:57 05/06/18 05/06/18 05/07/18 04:25 05:59 07:10 RBC 4.51 3.58 L Hgb 9.9 L 7.9 L Hct 31.4 L 25.3 L Urine Opiates Screen - Discharge information/Instructions Discharge Activity: Balance Activity w/Rest, Pelvic Rest Discharge Diet: Regular Disposition: HOME, SELF-CARE Follow up with: [facility] in: 2, Weeks
[2018-05-08 11:05] LABS: ABSOLUTE BASOPHILS # (AUTO) 0.1 10^3/uL (0.0-0.2); ABSOLUTE EOSINOPHILS # (AUTO) 0.6 10^3/uL (0.0-0.6); ABSOLUTE LYMPHOCYTES (AUTO) 2.4 10^3/uL (0.5-4.7); ABSOLUTE MONOCYTES (AUTO) 0.6 10^3/uL (0.1-1.4); ABSOLUTE NEUT (AUTO) 8.1 10^3/uL (1.7-8.2); BASOPHILS % (AUTO) 0.5 % (0-2); EOSINOPHILS % (AUTO) 4.8 % (0-6); HEMATOCRIT 29.6 % (36.0-47.0); HEMOGLOBIN 9.6 g/dL (12.0-15.5); LYMPHOCYTES % (AUTO) 20.3 % (13-45); MEAN CORPUSCULAR HEMOGLOBIN 23.3 pg (27.0-33.4); MEAN CORPUSCULAR HGB CONC 32.4 g/dL (32.0-36.0); MEAN CORPUSCULAR VOLUME 72 fl (80-97); MONOCYTES % (AUTO) 5.2 % (3-13); PLATELET COUNT 256 10^3/uL (150-450); RED BLOOD COUNT 4.12 10^6/uL (3.72-5.28); RED CELL DISTRIBUTION WIDTH 30.6 % (11.5-14.0); SEGMENTED NEUTROPHILS % (AUTO) 69.2 % (42-78); TOTAL CELLS COUNTED % (AUTO) 100 %; WHITE BLOOD COUNT 11.7 10^3/uL (4.0-10.5)
[2018-05-08 11:25] LABS: ANISOCYTOSIS 4+; HYPOCHROMASIA 1+; OVALOCYTES SLIGHT; PLATELET COMMENT ADEQUATE; POIKILOCYTOSIS 1+; POLYCHROMASIA SLIGHT; TEAR DROP CELLS SLIGHT
[2018-05-08 12:50] VITALS: BP 99/49
== END 2018-05-08 13:30 | disposition home or self-care (01) | DRG 806 ==
LOC: LC 04:14 → LR 05:06 → 2S 14:53
PROVIDERS: ADMIT Obstetrics & Gynecology; ATTEND Obstetrics & Gynecology
PROC: 10E0XZZ Delivery of Products of Conception, External Approach (ICD-10-PCS; principal; 2018-05-06)
PROC: 4A1HXCZ Monitoring of Products of Conception, Cardiac Rate, External Approach (ICD-10-PCS; 2018-05-06)
PROC: 0HQ9XZZ Repair Perineum Skin, External Approach (ICD-10-PCS; 2018-05-06)
PROC: 30233N1 Transfusion of Nonautologous Red Blood Cells into Peripheral Vein, Percutaneous Approach (ICD-10-PCS; 2018-05-07)
DX: O24.429 Gestational diabetes mellitus in childbirth, unspecified control (principal); K50.10 Crohn's disease of large intestine without complications; Z37.0 Single live birth; O99.324 Drug use complicating childbirth; F13.90 Sedative, hypnotic, or anxiolytic use, unspecified, uncomplicated; O99.62 Diseases of the digestive system complicating childbirth; O99.02 Anemia complicating childbirth; D50.0 Iron deficiency anemia secondary to blood loss (chronic); O70.0 First degree perineal laceration during delivery; Z3A.38 38 weeks gestation of pregnancy; Z88.1 Allergy status to other antibiotic agents; Z88.2 Allergy status to sulfonamides; Z88.8 Allergy status to other drugs, medicaments and biological substances
CPT/HCPCS: 36415; 36430; 80053; 80307; 81005; 84112; 85025; 85027; 86592; 86850; 86900; 86901; 86920; J2300; J2405; J2590; J3010; J3490; P9016; S0119

== ENCOUNTER 2018-07-27 21:34 | Emergency (ER) | payer OTHER ==
[2018-07-27 22:05] VITALS: BP 121/78
== END 2018-07-27 23:51 | disposition left against medical advice (07) ==
LOC: ER 21:34
DX: Z53.21 Procedure and treatment not carried out due to patient leaving prior to being seen by health care provider (principal)

== ENCOUNTER 2018-09-12 10:57 | Emergency (ER) | payer OTHER ==
--- NOTE | 2018-09-12 11:19 | ER Document Report ---
ED Medical Screen (RME) - General Chief Complaint: Urinary Problem Stated Complaint: FLANK PAIN Time Seen by Provider: 09/12/18 11:17 Mode of Arrival: Ambulatory Information source: Patient TRAVEL OUTSIDE OF THE [place] IN LAST 30 DAYS: No - HPI Patient complains to provider of: flank pain Onset: Yesterday - pt . with 1 day h/o L flank pain with weakness. - Related Data Allergies/Adverse Reactions: doxycycline [Doxycycline] Allergy (Severe, Verified 09/12/18 11:01) Anaphylaxis ciprofloxacin [From Cipro] Allergy (Mild, Verified 09/12/18 11:01) Hives ciprofloxacin HCl [From Cipro] Allergy (Mild, Verified 09/12/18 11:01) Hives levofloxacin [From Levaquin] Allergy (Mild, Verified 09/12/18 11:01) muscle cramps Metronidazole HCl [From Flagyl] Allergy (Mild, Verified 09/12/18 11:01) VOMITING sulfamethoxazole [From Bactrim] Allergy (Mild, Verified 09/12/18 11:01) Hives trimethoprim [From Bactrim] Allergy (Mild, Verified 09/12/18 11:01) Hives metronidazole [Metronidazole] Adverse Reaction (Mild, Verified 09/12/18 11:01) Nausea NSAIDS (Non-Steroidal Anti-Inflamma Adverse Reaction (Verified 09/12/18 11:01) Past Medical History - Social History Family history: Arthritis, CAD, CVA, DM, Hyperlipidemia, Hypertension Pulmonary Medical History: Reports: Hx Asthma, Hx Bronchitis Denies: Hx Tuberculosis Neurological Medical History: Reports: Hx Migraine Endocrine Medical History: Comment Only: Hx Diabetes Mellitus Type 2 - gestational dm Renal/ Medical History: Reports: Hx Ovarian Cysts. Denies: Hx Peritoneal Dialysis GI Medical History: Reports: Hx Crohn's Disease, Hx Gastritis, Hx Gastroesophageal Reflux Disease, Hx Hiatal Hernia, Hx Irritable Bowel Musculoskeltal Medical History: Reports Hx Fibromyalgia Psychiatric Medical History: Reports: Hx Anxiety, Hx Depression Infectious Medical History: Reports: Hx C-Diff Past Surgical History: Reports: Hx Appendectomy - 02/16/2015, Hx Nose Surgery - 2X sinus, Hx Oral Surgery, Hx Tonsillectomy, Other - Sinus surgery - Immunizations Immunizations up to date: Yes Hx Diphtheria, Pertussis, Tetanus Vaccination: Yes - already received Physical Exam - Vital signs Vitals: Temp Pulse Resp BP Pulse Ox 98.1 F 90 16 121/77 98 09/12/18 11:06 09/12/18 11:06 09/12/18 11:06 09/12/18 11:06 09/12/18 11:06 Course - Vital Signs Vital signs: Temp Pulse Resp BP Pulse Ox 98.1 F 90 16 121/77 98 09/12/18 11:06 09/12/18 11:06 09/12/18 11:06 09/12/18 11:06 09/12/18 11:06
[2018-09-12 11:37] LABS: ABSOLUTE BASOPHILS # (AUTO) 0.1 10^3/uL (0.0-0.2); ABSOLUTE EOSINOPHILS # (AUTO) 0.4 10^3/uL (0.0-0.6); ABSOLUTE LYMPHOCYTES (AUTO) 2.8 10^3/uL (0.5-4.7); ABSOLUTE MONOCYTES (AUTO) 0.7 10^3/uL (0.1-1.4); ABSOLUTE NEUT (AUTO) 7.3 10^3/uL (1.7-8.2); BASOPHILS % (AUTO) 0.5 % (0-2); EOSINOPHILS % (AUTO) 3.3 % (0-6); HEMATOCRIT 41.5 % (36.0-47.0); HEMOGLOBIN 14.6 g/dL (12.0-15.5); LYMPHOCYTES % (AUTO) 24.9 % (13-45); MEAN CORPUSCULAR HEMOGLOBIN 28.5 pg (27.0-33.4); MEAN CORPUSCULAR HGB CONC 35.3 g/dL (32.0-36.0); MEAN CORPUSCULAR VOLUME 81 fl (80-97); MONOCYTES % (AUTO) 5.9 % (3-13); PLATELET COUNT 372 10^3/uL (150-450); RED BLOOD COUNT 5.14 10^6/uL (3.72-5.28); SEGMENTED NEUTROPHILS % (AUTO) 65.4 % (42-78); TOTAL CELLS COUNTED % (AUTO) 100 %; WHITE BLOOD COUNT 11.2 10^3/uL (4.0-10.5)
[2018-09-12 11:45] LABS: APPEARANCE,URINE CLOUDY; BILIRUBIN,URINE NEGATIVE (NEGATIVE); COLOR,URINE YELLOW; GLUCOSE, URINE NEGATIVE (NEGATIVE); KETONES,URINE NEGATIVE (NEGATIVE); LEUKOCYTE ESTERASE,URINE TRACE (NEGATIVE); NITRITE,URINE NEGATIVE (NEGATIVE); PROTEIN,URINE 30 mg/dL (NEGATIVE); URINE SPECIFIC GRAVITY 1.018
[2018-09-12 11:52] LABS: ALANINE AMINOTRANSFERASE 33 U/L (9-52); ALBUMIN 4.5 g/dL (3.5-5.0); ALKALINE PHOSPHATASE 88 U/L (38-126); ANION GAP 8 (5-19); ASPARTATE AMINO TRANSFERASE 31 U/L (14-36); BILIRUBIN,DIRECT 0.2 mg/dL (0.0-0.4); BILIRUBIN,TOTAL 0.4 mg/dL (0.2-1.3); BLOOD UREA NITROGEN 9 mg/dL (7-20); CALCIUM 9.6 mg/dL (8.4-10.2); CARBON DIOXIDE 26 mmol/L (22-30); CHLORIDE 107 mmol/L (98-107); GLUCOSE 85 mg/dL (75-110); POTASSIUM 4.6 mmol/L (3.6-5.0); TOTAL PROTEIN 7.6 g/dL (6.3-8.2)
--- NOTE | 2018-09-12 12:31 | RADIOLOGY REPORT (SQ) ---
EXAM DESCRIPTION: CT ABD/PELVIS NO ORAL OR IV COMPLETED DATE/TIME: 09/12/2018 12:12 pm REASON FOR STUDY: L flank pain COMPARISON: CT abdomen pelvis 06/17/2015, 02/21/2015, 02/16/2015, 11/27/2013, 11/26/2013 TECHNIQUE: CT scan of the abdomen and pelvis performed without intravenous or oral contrast. Images reviewed with lung, soft tissue, and bone windows. Reconstructed coronal and sagittal MPR images revi ewed. All images stored on PACS. All CT scanners at this facility use dose modulation, iterative reconstruction, and/or weight based d osing when appropriate to reduce radiation dose to as low as reasonably achievable (ALARA). [facility]: Dose Right [facility]: CareDose [facility]: Dose Right [facility]: Teradose 4D [facility]: [employer] RADIATION DOSE: CT Rad equipment meets quality standard of care and radiation dose reduction techniq ues were employed. CTDIvol: 8.4 mGy. DLP: 465 mGy-cm.mGy. LIMITATIONS: None. FINDINGS: LOWER CHEST: No significant findings. No nodules or infiltrates. NON-CONTRASTED LIVER, SPLEEN, ADRENALS: Evaluation limited by lack of IV contrast. No identified sign ificant masses. Benign 2 cm cyst in the anterior edge of the spleen PANCREAS: No masses. No peripancreatic inflammatory changes. GALLBLADDER: No identified stones by CT criteria. No inflammatory changes to suggest cholecystitis. RIGHT KIDNEY AND URETER: No suspicious masses. Assessment limited by lack of IV contrast. No signif icant calcifications. No hydronephrosis or hydroureter. LEFT KIDNEY AND URETER: No suspicious masses. Assessment limited by lack of IV contrast. No signifi cant calcifications. No hydronephrosis or hydroureter. AORTA AND RETROPERITONEUM: No aneurysm. No retroperitoneal masses or adenopathy. BOWEL AND PERITONEAL CAVITY: No obvious masses or inflammatory changes. No free fluid. APPENDIX: Surgically absent PELVIS, BLADDER, AND ABDOMINAL WALL:No abnormal masses. No free fluid. Bladder normal. Normal size f emale pelvic organs BONES: No significant findings. OTHER: No other significant finding. IMPRESSION: Post appendectomy. Benign 2 cm cyst in the spleen. No acute findings COMMENT: Quality ID # [id number]: Final reports with documentation of one or more dose reduction techniques (e.g., Automated exposure control, adjustment of the mA and/or kV according to patient size, use of iterative reconstruction technique) TECHNICAL DOCUMENTATION: JOB ID: [id number] [employer]- All Rights Reserved Reading location - IP/workstation name: [email or web address]
[2018-09-12 13:55] VITALS: BP 106/65
--- NOTE | 2018-09-12 16:43 | ER Document Report ---
Entered by EMMIE JAMES SCRIBE 09/12/18 1249 Acting as scribe for:AISLINN MERCHANT MD ED General - General Mode of Arrival: Ambulatory Information source: Patient TRAVEL OUTSIDE OF THE [place] IN LAST 30 DAYS: No <AISLINN MERCHANT - Last Filed: 09/12/18 13:39> <KELLEY ENG - Last Filed: 09/12/18 13:43> - General Chief Complaint: Urinary Problem Stated Complaint: FLANK PAIN Time Seen by Provider: 09/12/18 11:17 Primary Care Provider: [facility] [Provider Group] - Follow up in 3-5 days Notes: Patient is a 37 year old female with fibromyalgia, Crohn's disease, IBS, GERD, anxiety, depression presents to the emergency department complaining of bilatera l flank pain, lower abdominal tenderness, nausea and generalized weakness onset 2 days ago. 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 She states her left flank pain is more severe than her right. She states she then developed nausea and weakness. Patient also mentions rectal and vaginal bleeding. She states she has had a colonoscopy 6 days where a polyp removed. She also states she began to bleed last night despite her period ending 1 week ago. Patient goes to [facility]. (EMMIE JAMES) Patient is a 37 year old female with fibromyalgia, Crohn's disease, IBS, GERD, anxiety, depression presents to the emergency department complaining of bilateral flank pain, lower abdominal tenderness, nausea and generalized weakness onset 2 days ago. 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 She states her left flank pain is more severe than her right. She states she then developed nausea and weakness. Patient also mentions rectal and vaginal bleeding. She states she has had a colonoscopy 6 days where a polyp removed. She also states she began to bleed last night despite her period ending 1 week ago. Patient goes to [facility]. (AISLINN MERCHANT) - Related Data Allergies/Adverse Reactions: doxycycline [Doxycycline] Allergy (Severe, Verified 09/12/18 11:01) Anaphylaxis ciprofloxacin [From Cipro] Allergy (Mild, Verified 09/12/18 11:01) Hives ciprofloxacin HCl [From Cipro] Allergy (Mild, Verified 09/12/18 11:01) Hives levofloxacin [From Levaquin] Allergy (Mild, Verified 09/12/18 11:01) muscle cramps Metronidazole HCl [From Flagyl] Allergy (Mild, Verified 09/12/18 11:01) VOMITING sulfamethoxazole [From Bactrim] Allergy (Mild, Verified 09/12/18 11:01) Hives trimethoprim [From Bactrim] Allergy (Mild, Verified 09/12/18 11:01) Hives metronidazole [Metronidazole] Adverse Reaction (Mild, Verified 09/12/18 11:01) Nausea NSAIDS (Non-Steroidal Anti-Inflamma Adverse Reaction (Verified 09/12/18 11:01) Past Medical History - General Information source: Patient - Social History Smoking Status: Never Smoker Cigarette use (# per day): No Chew tobacco use (# tins/day): No Smoking Education Provided: No Frequency of alcohol use: None Family History: Reviewed & Not Pertinent Patient has suicidal ideation: No Patient has homicidal ideation: No Pulmonary Medical History: Reports: Hx Asthma, Hx Bronchitis Neurological Medical History: Reports: Hx Migraine Endocrine Medical History: Comment Only: Hx Diabetes Mellitus Type 2 - gestational dm Renal/ Medical History: Reports: Hx Ovarian Cysts GI Medical History: Reports: Hx Crohn's Disease, Hx Gastritis, Hx Gastroesophageal Reflux Disease, Hx Hiatal Hernia, Hx Irritable Bowel Musculoskeletal Medical History: Reports Hx Fibromyalgia Psychiatric Medical History: Reports: Hx Anxiety, Hx Depression Infectious Medical History: Reports: Hx C-Diff Past Surgical History: Reports: Hx Appendectomy - 02/16/2015, Hx Nose Surgery - 2X sinus, Hx Oral Surgery, Hx Tonsillectomy, Other - Sinus surgery - Immunizations Immunizations up to date: Yes Hx Diphtheria, Pertussis, Tetanus Vaccination: Yes - already received Hx Pneumococcal Vaccination: 02/13/13 <AISLINN MERCHANT - Last Filed: 09/12/18 13:39> Review of Systems - Review of Systems Constitutional: See HPI, Weakness EENT: No symptoms reported Cardiovascular: No symptoms reported Respiratory: No symptoms reported Gastrointestinal: See HPI Genitourinary: See HPI, Flank pain Female Genitourinary: No symptoms reported Musculoskeletal: See HPI Skin: No symptoms reported Hematologic/Lymphatic: No symptoms reported Neurological/Psychological: No symptoms reported -: Yes All other systems reviewed and negative <AISLINN MERCHANT - Last Filed: 09/12/18 13:39> Physical Exam <AISLINN MERCHANT - Last Filed: 09/12/18 13:39> - Vital signs Vitals: Temp Pulse Resp BP Pulse Ox 98.1 F 90 16 121/77 98 09/12/18 11:06 09/12/18 11:06 09/12/18 11:06 09/12/18 11:06 09/12/18 11:06 - Notes Notes: GENERAL: Alert, interacts well. No acute distress. HEAD: Normocephalic, atraumatic. EYES: Pupils equal, round, and reactive to light. Extraocular movements intact. ENT: Oral mucosa moist, tongue midline. NECK: Full range of motion. Supple. Trachea midline. LUNGS: Clear to auscultation bilaterally, no wheezes, rales, or rhonchi. No respiratory distress. HEART: Regular rate and rhythm. No murmurs, gallops, or rubs. ABDOMEN: Soft, non tender. Non-distended. Bowel sounds present in all 4 quadrants. No guarding, rigidity, or rebound. EXTREMITIES: Moves all 4 extremities spontaneously. NEUROLOGICAL: Alert and oriented x3. Normal speech. PSYCH: Normal affect, normal mood. SKIN: Warm, dry, normal turgor. No rashes or lesions noted. BACK: Tender to palpate the left lumbar and left latissimus dorsi muscles. No CVA tenderness to percussion. (EMMIE JAMES) GENERAL: Alert, interacts well. No acute distress. HEAD: Normocephalic, atraumatic. EYES: Pupils equal, round, and reactive to light. Extraocular movements intact. ENT: Oral mucosa moist, tongue midline. NECK: Full range of motion. Supple. Trachea midline. LUNGS: Clear to auscultation bilaterally, no wheezes, rales, or rhonchi. No respiratory distress. HEART: Regular rate and rhythm. No murmurs, gallops, or rubs. ABDOMEN: Soft, non tender. Non-distended. Bowel sounds present in all 4 quad rants. No guarding, rigidity, or rebound. EXTREMITIES: Moves all 4 extremities spontaneously. NEUROLOGICAL: Alert and oriented x3. Normal speech. PSYCH: Normal affect, normal mood. SKIN: Warm, dry, normal turgor. No rashes or lesions noted. BACK: Tender to palpate the left lumbar and left latissimus dorsi muscles. No CVA tenderness to percussion. (AISLINN MERCHANT) Course - Laboratory Result Diagrams: 09/12/18 11:25 09/12/18 11:25 - Diagnostic Test Radiology reviewed: Image reviewed, Reports reviewed - CT scan of the abdomen pelvis shows patient is post appendectomy, a benign cyst in the spleen. There are no acute findings. <AISLINN MERCHANT - Last Filed: 09/12/18 13:39> - Laboratory Result Diagrams: 09/12/18 11:25 09/12/18 11:25 <KELLEY ENG - Last Filed: 09/12/18 13:43> - Vital Signs Vital signs: Temp Pulse Resp BP Pulse Ox 98.1 F 90 16 121/77 98 09/12/18 11:06 09/12/18 11:06 09/12/18 11:06 09/12/18 11:06 09/12/18 11:06 - Laboratory Laboratory results interpreted by me: 09/12/18 09/12/18 11:05 11:25 WBC 11.2 H Urine Protein 30 H Urine Blood LARGE H Urine Urobilinogen 2.0 H Ur Leukocyte Esterase TRACE H Discharge <AISLINN MERCHANT - Last Filed: 09/12/18 13:39> <KELLEY ENG - Last Filed: 09/12/18 13:43> - Discharge Clinical Impression: Lumbar back pain, Flank pain Condition: Stable Disposition: HOME, SELF-CARE Additional Instructions: Low Back Pain Three out of every four people will have an episode of disabling back pain during their lifetime. Most commonly the pain is due to straining of the muscles and ligaments in the low back. Usual treatment includes: (1) Rest on a firm surface. Avoid lying on your stomach. (2) Ice pack the painful area. After a few days, gentle heat may be used intermittently to relax the area, or ice packs can be continued. (3) Medication may be needed -- muscle relaxers and antiinflammatory medicines are commonly used. (4) As the back improves, exercises are prescribed to strengthen the back and abdominal muscles. Your doctor will advise you on the proper care for your back at each stage in your recovery. You may be better in a few days -- or healing may take isidro ral weeks. If new symptoms of a "herniated disc" (radiation of pain, numbness, or tingling down the back of the leg or weakness in the leg) occur, you should be re-examined. Further testing may be necessary. Flank Pain We weren't able to prove an exact cause for your flank pain. Pain in the flank can be caused by a muscle strain or spasm. Sometimes a kidney stone causes pain, but can't be found on our tests. Infection in the kidney should be evident on a urine test. Early shingles can occasionally cause flank pain, without the rash that proves the diagnosis. On rare occasions, disease of the pancreas, aorta, spleen, or colon can create pain in the flank. At this time, there's no evidence of a dangerous condition, and it seems safe for you to be at home. If the pain goes away and does not come back, no further testing will be needed. If pain persists, or becomes more severe, we may need to repeat some tests or order additional new testing. Blood in the urine, urgency to urinate frequently, and pain that radiates to the groin can indicate a kidney stone. Fever may mean that the pain is due to infection, either of the kidney or the colon (diverticulitis). If your pain is early shingles, you should develop an eruption of blisters in the painful area within a few days. Call the doctor or return if you have pain that is spreading or becoming more severe, pain that does not resolve with time, fever, or any other new symptoms. Your CT scan did not show any acute changes that would explain your pain. Your physical exam suggests your pain is coming from the muscles and your left thoracic and lumbar back regions. This was most likely due to a strain that occurred several days before the pain started. Try the muscle relaxers as prescribed to see if that will help patient your recovery from your back discomfort. Follow-up with your doctor or [facility] to discuss your abnormal vaginal bleeding. Prescriptions: Cyclobenzaprine HCl [Flexeril 5 mg Tablet] 5 mg PO TID PRN #15 tablet PRN Reason: Referrals: [facility] [Provider Group] - Follow up in 3-5 days Scribe Attestation: 09/12/18 13:27 I personally performed the services described in the documentation, reviewed and edited the documentation which was dictated to the scribe in my presence, and it accurately records my words and actions. (AISLINN MERCHANT) I personally performed the services described in the documentation, reviewed and edited the documentation which was dictated to the scribe in my presence, and it accurately records my words and actions.
== END 2018-09-12 13:54 | disposition home or self-care (01) ==
LOC: ER 10:57
DX: R10.9 Unspecified abdominal pain (principal); M54.5 Low back pain; R11.0 Nausea; R53.1 Weakness; D73.4 Cyst of spleen; Z87.19 Personal history of other diseases of the digestive system; K62.5 Hemorrhage of anus and rectum; N93.9 Abnormal uterine and vaginal bleeding, unspecified; Z98.890 Other specified postprocedural states; Z88.1 Allergy status to other antibiotic agents; J45.909 Unspecified asthma, uncomplicated; Z90.49 Acquired absence of other specified parts of digestive tract
CPT/HCPCS: 36415; 74176; 80053; 81001; 81025; 85025; 87086; 87088; 99284

== ENCOUNTER → 2018-10-14 | Outpatient (CLI) | payer OTHER ==
--- NOTE | 2018-10-14 17:36 | RADIOLOGY REPORT (SQ) ---
EXAM DESCRIPTION: FOOT LEFT COMPLETE COMPLETED DATE/TIME: 10/14/2018 4:54 pm REASON FOR STUDY: PAIN IN LEFT ANKLE AND JOINTS OF LEFT FOOT M25.572 PAIN IN LEFT ANKLE AND JOINTS OF LEFT FOOT COMPARISON: None. NUMBER OF VIEWS: Three views. TECHNIQUE: AP, lateral and oblique radiographic images acquired of the left foot. LIMITATIONS: None. FINDINGS: MINERALIZATION: Normal. BONES: No acute fracture or dislocation. No worrisome bone lesions. JOINTS: Hallux valgus. SOFT TISSUES: No soft tissue swelling. No foreign body. OTHER: No other significant finding. IMPRESSION: Hallux valgus. No acute osseous abnormality. TECHNICAL DOCUMENTATION: JOB ID: [id number] [employer]- All Rights Reserved Reading location - IP/workstation name: [email or web address]
--- NOTE | 2018-10-15 11:58 | RADIOLOGY REPORT (SQ) ---
EXAM DESCRIPTION: ANKLE LEFT COMPLETE COMPLETED DATE/TIME: 10/14/2018 4:54 pm REASON FOR STUDY: PAIN IN LEFT ANKLE AND JOINTS OF LEFT FOOT M25.572 PAIN IN LEFT ANKLE AND JOINTS OF LEFT FOOT COMPARISON: None. NUMBER OF VIEWS: Three views. TECHNIQUE: AP, lateral, and oblique radiographic images acquired of the left ankle. LIMITATIONS: None. FINDINGS: MINERALIZATION: Normal. BONES: No acute fracture or dislocation. No worrisome bone lesions. JOINTS: No effusions. SOFT TISSUES: No soft tissue swelling. No foreign body. OTHER: No other significant finding. IMPRESSION: NEGATIVE STUDY OF THE LEFT ANKLE. NO RADIOGRAPHIC EVIDENCE OF ACUTE INJURY. TECHNICAL DOCUMENTATION: JOB ID: [id number] [employer]- All Rights Reserved Reading location - IP/workstation name: [email or web address]
== END ==
LOC: OD 16:34
PROVIDERS: ATTEND Nurse Practitioner Gerontology
DX: M25.572 Pain in left ankle and joints of left foot (principal)

== ENCOUNTER 2019-03-13 13:34 | Emergency (ER) | payer OTHER ==
[2019-03-13 13:45] VITALS: BP 118/71
[2019-03-13] MEDS ORDERED: ONDANSETRON 4 MG TAB.RAPDIS PO ONE (14:37)
--- NOTE | 2019-03-13 14:38 | ER Document Report ---
ED Medical Screen (RME) - General Chief Complaint: General Weakness Stated Complaint: WEAKNESS/SWOLLEN FINGERS Time Seen by Provider: 03/13/19 14:29 Primary Care Provider: KJ HESS NP [Primary Care Provider] - Follow up as needed Notes: Patient is a 38-year-old female with a history of Crohn's who presents to the emergency department with multiple complaints. Patient reports over the past 4 to 5 days she has noticed intermittent bilateral hand swelling. Patient reports she does have a history of carpal tunnel which was real bad during her 10 months ago. Patient reports she had to get injections in her wrist in the past. 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 Patient also reports nausea. Patient denies vomiting. Patient reports she does have history of Crohn's and has noticed a darker stool. Patient also reports a history of UTIs and urinary hesitancy. Patient also reports having possible ingrown hairs that are draining to the left inner thigh. Patient also concerned that she may have a yeast infection as she is having white vaginal discharge that is different from her normal. TRAVEL OUTSIDE OF THE [place] IN LAST 30 DAYS: No - Related Data Allergies/Adverse Reactions: doxycycline [Doxycycline] Allergy (Severe, Verified 03/13/19 14:21) Anaphylaxis ciprofloxacin [From Cipro] Allergy (Mild, Verified 03/13/19 14:21) Hives ciprofloxacin HCl [From Cipro] Allergy (Mild, Verified 03/13/19 14:21) Hives levofloxacin [From Levaquin] Allergy (Mild, Verified 03/13/19 14:21) muscle cramps Metronidazole HCl [From Flagyl] Allergy (Mild, Verified 03/13/19 14:21) VOMITING sulfamethoxazole [From Bactrim] Allergy (Mild, Verified 03/13/19 14:21) Hives trimethoprim [From Bactrim] Allergy (Mild, Verified 03/13/19 14:21) Hives metronidazole [Metronidazole] Adverse Reaction (Mild, Verified 03/13/19 14:21) Nausea NSAIDS (Non-Steroidal Anti-Inflamma Adverse Reaction (Verified 03/13/19 14:21) Past Medical History - Social History Chew tobacco use (# tins/day): No Frequency of alcohol use: None Drug Abuse: None Family history: Arthritis, CAD, CVA, DM, Hyperlipidemia, Hypertension Pulmonary Medical History: Reports: Hx Asthma, Hx Bronchitis Denies: Hx Tuberculosis Neurological Medical History: Reports: Hx Migraine Endocrine Medical History: Comment Only: Hx Diabetes Mellitus Type 2 - gestational dm Renal/ Medical History: Reports: Hx Ovarian Cysts. Denies: Hx Peritoneal Dialysis GI Medical History: Reports: Hx Crohn's Disease, Hx Gastritis, Hx Gastroesophageal Reflux Disease, Hx Hiatal Hernia, Hx Irritable Bowel Musculoskeltal Medical History: Reports Hx Fibromyalgia Psychiatric Medical History: Reports: Hx Anxiety, Hx Depression Infectious Medical History: Reports: Hx C-Diff Past Surgical History: Reports: Hx Appendectomy - 02/16/2015, Hx Nose Surgery - 2X sinus, Hx Oral Surgery, Hx Tonsillectomy, Other - Sinus surgery - Immunizations Immunizations up to date: Yes Hx Diphtheria, Pertussis, Tetanus Vaccination: Yes - already received Physical Exam - Vital signs Vitals: Temp Pulse Resp BP Pulse Ox 97.8 F 86 16 118/71 99 03/13/19 13:37 03/13/19 13:37 03/13/19 13:37 03/13/19 13:37 03/13/19 13:37 - Abdominal Inspection: Normal Distension: No distension Bowel sounds: Normal Tenderness: Nontender Organomegaly: No organomegaly Course - Re-evaluation Re-evalutation: 03/13/19 14:36 I have greeted and performed a rapid initial assessment of this patient. A comprehensive ED assessment and evaluation of the patient, analysis of test results and completion of the medical decision making process will be conducted by additional ED providers. - Vital Signs Vital signs: Temp Pulse Resp BP Pulse Ox 97.8 F 86 16 118/71 99 03/13/19 13:37 03/13/19 13:37 03/13/19 13:37 03/13/19 13:37 03/13/19 13:37 Doctor's Discharge - Discharge Referrals: KJ HESS NP [Primary Care Provider] - Follow up as needed
[2019-03-13 16:58] LABS: ABSOLUTE EOSINOPHILS # (AUTO) 0.4 10^3/uL (0.0-0.6); ABSOLUTE LYMPHOCYTES (AUTO) 3.3 10^3/uL (0.5-4.7); ABSOLUTE MONOCYTES (AUTO) 0.6 10^3/uL (0.1-1.4); ABSOLUTE NEUT (AUTO) 8.5 10^3/uL (1.7-8.2); BASOPHILS % (AUTO) 0.4 % (0-2); HEMATOCRIT 45.5 % (36.0-47.0); HEMOGLOBIN 15.4 g/dL (12.0-15.5); LYMPHOCYTES % (AUTO) 25.8 % (13-45); MEAN CORPUSCULAR HEMOGLOBIN 27.9 pg (27.0-33.4); MEAN CORPUSCULAR HGB CONC 33.8 g/dL (32.0-36.0); MEAN CORPUSCULAR VOLUME 83 fl (80-97); PLATELET COUNT 388 10^3/uL (150-450); RED BLOOD COUNT 5.52 10^6/uL (3.72-5.28); SEGMENTED NEUTROPHILS % (AUTO) 65.8 % (42-78); TOTAL CELLS COUNTED % (AUTO) 100 %; WHITE BLOOD COUNT 12.9 10^3/uL (4.0-10.5)
[2019-03-13 17:03] LABS: APPEARANCE,URINE CLEAR; BILIRUBIN,URINE NEGATIVE (NEGATIVE); COLOR,URINE YELLOW; GLUCOSE, URINE NEGATIVE (NEGATIVE); KETONES,URINE NEGATIVE (NEGATIVE); LEUKOCYTE ESTERASE,URINE NEGATIVE (NEGATIVE); NITRITE,URINE NEGATIVE (NEGATIVE); PROTEIN,URINE NEGATIVE (NEGATIVE); URINE SPECIFIC GRAVITY 1.011; UROBILINOGEN,URINE NEGATIVE mg/dL (<2.0)
[2019-03-13 17:14] LABS: ALBUMIN 5.1 g/dL (3.5-5.0); ALKALINE PHOSPHATASE 76 U/L (38-126); ANION GAP 12 (5-19); ASPARTATE AMINO TRANSFERASE 30 U/L (14-36); BILIRUBIN,DIRECT 0.1 mg/dL (0.0-0.4); BILIRUBIN,TOTAL 0.5 mg/dL (0.2-1.3); BLOOD UREA NITROGEN 10 mg/dL (7-20); CALCIUM 9.7 mg/dL (8.4-10.2); CARBON DIOXIDE 28 mmol/L (22-30); CHLORIDE 101 mmol/L (98-107); GLUCOSE 77 mg/dL (75-110); POTASSIUM 4.3 mmol/L (3.6-5.0); TOTAL PROTEIN 8.4 g/dL (6.3-8.2)
[2019-03-13] MEDS ORDERED: ONDANSETRON 4 MG TAB.RAPDIS ONE (17:56)
--- NOTE | 2019-03-13 18:09 | ER Document Report ---
ED General - General Chief Complaint: Hand Swelling Stated Complaint: WEAKNESS/SWOLLEN FINGERS Time Seen by Provider: 03/13/19 14:29 Primary Care Provider: SHANTEL LANGE MD [ACTIVE STAFF] - Follow up in 3-5 days (primary care. ) Notes: Patient is a 38-year-old female with history of Crohn's disease who presents to the emergency department for multiple complaints including abdominal cramping, possible blood in the stool, joint swelling, and groin abscesses. Patient states that symptoms have been going on for several days now, she is been having abdominal cramping, she thought was related to her menstrual period last week, but her symptoms progressed, she continued to have hand swelling, and noticed some lesions in her groin. She is also had associated nausea but no vomiting. Denies any urinary symptoms. She currently rates her pain as a 2 out of 10 describes as a cramping sensation in both her joints of her hands as well as her abdomen. She states she did start taking her Crohn's medication Canasa, which did seem to help with some of her symptoms, but her hands continue to be swollen. She does have a family history of lupus but has not been tested for. She is also a carpal tunnel, but denies having any electric or shooting pain from the wrist to the hand she states is mainly in her joints. She denies any bright red blood per rectum, denies any lightheadedness, dizziness, vomiting but admits to nausea. She also reports that her groin has had several small ingrown hairs, that she is been treating at home and draining herself, none of them she states her larger particular painful at this time. Denies any associated fevers, chills or night sweats. No other complaints at this time. Past Medical History: Crohn's disease Past Surgical History: Denies recent or pertinent surgical history Social History: Denies tobacco, alcohol or drug use. Family History: Reviewed and noncontributory for presenting illness Allergies: Reviewed, see documented allergy list. REVIEW OF SYSTEMS: Other than noted above, the 12 point review of systems was reviewed with the patient and were negative, all pertinent findings are included in the HPI. PHYSICAL EXAMINATION: Vital signs reviewed, nursing noted reviewed. GENERAL: Well-appearing, well-nourished and in no acute distress. HEAD: Atraumatic, normocephalic. EYES: Eyes appear normal, extraocular movements intact, sclera anicteric, conjunctiva are normal. ENT: nares patent, oropharynx clear without exudates. Moist mucous membranes. NECK: Normal range of motion, supple without lymphadenopathy LUNGS: Breath sounds clear to auscultation bilaterally and equal. No wheezes rales or rhonchi. HEART: Regular rate and rhythm without murmurs ABDOMEN: Soft, mild diffuse abdominal tenderness to palpation, normoactive bowel sounds. No rebound, guarding, or rigidity. No masses appreciated. EXTREMITIES: Nontender, good range of motion, no pitting or edema. NEUROLOGICAL: No focal neurological deficits. Moves all extremities spontaneo usly Motor and sensory grossly intact on exam. PSYCH: Normal mood, normal affect. SKIN: Warm, Dry, normal turgor, with Nurse Daysi ANTONIO osha inspector present, patient's inner thighs were examined, noted to have a few scattered furuncles, but no discernible abscess or fluctuance to palpation, and not any significant tenderness to palpation or erythema noted. TRAVEL OUTSIDE OF THE [place] IN LAST 30 DAYS: No - Related Data Allergies/Adverse Reactions: doxycycline [Doxycycline] Allergy (Severe, Verified 03/13/19 14:21) Anaphylaxis ciprofloxacin [From Cipro] Allergy (Mild, Verified 03/13/19 14:21) Hives ciprofloxacin HCl [From Cipro] Allergy (Mild, Verified 03/13/19 14:21) Hives levofloxacin [From Levaquin] Allergy (Mild, Verified 03/13/19 14:21) muscle cramps Metronidazole HCl [From Flagyl] Allergy (Mild, Verified 03/13/19 14:21) VOMITING sulfamethoxazole [From Bactrim] Allergy (Mild, Verified 03/13/19 14:21) Hives trimethoprim [From Bactrim] Allergy (Mild, Verified 03/13/19 14:21) Hives metronidazole [Metronidazole] Adverse Reaction (Mild, Verified 03/13/19 14:21) Nausea NSAIDS (Non-Steroidal Anti-Inflamma Adverse Reaction (Verified 03/13/19 14:21) Past Medical History - Social History Smoking Status: Never Smoker Chew tobacco use (# tins/day): No Frequency of alcohol use: None Drug Abuse: None Family History: Reviewed & Not Pertinent Patient has suicidal ideation: No Patient has homicidal ideation: No Pulmonary Medical History: Reports: Hx Asthma, Hx Bronchitis Denies: Hx Tuberculosis Neurological Medical History: Reports: Hx Migraine Endocrine Medical History: Comment Only: Hx Diabetes Mellitus Type 2 - gestational dm Renal/ Medical History: Reports: Hx Ovarian Cysts. Denies: Hx Peritoneal Dialysis GI Medical History: Reports: Hx Crohn's Disease, Hx Gastritis, Hx Gastroesophageal Reflux Disease, Hx Hiatal Hernia, Hx Irritable Bowel Musculoskeletal Medical History: Reports Hx Fibromyalgia Psychiatric Medical History: Reports: Hx Anxiety, Hx Depression Infectious Medical History: Reports: Hx C-Diff Past Surgical History: Reports: Hx Appendectomy - 02/16/2015, Hx Nose Surgery - 2X sinus, Hx Oral Surgery, Hx Tonsillectomy, Other - Sinus surgery - Immunizations Immunizations up to date: Yes Hx Diphtheria, Pertussis, Tetanus Vaccination: Yes - already received Hx Pneumococcal Vaccination: 02/13/13 Physical Exam - Vital signs Vitals: Temp Pulse Resp BP Pulse Ox 97.8 F 86 16 118/71 99 03/13/19 13:37 03/13/19 13:37 03/13/19 13:37 03/13/19 13:37 03/13/19 13:37 Course - Re-evaluation Re-evalutation: Patient seen and examined, vital signs reviewed, on patient's exam she had only mild diffuse abdominal tenderness, and noted to have very small furuncles, no appreciable large abscess in the groins bilaterally, this was examined with a osha inspector present, the rest of her exam is grossly unremarkable. Blood work ordered in triage was unremarkable, with exception of mild leukocytosis, LFTs normal. Renal function normal. Feel patient's likely having a mild flare of her Crohn's disease as she did get improvement with the Canasa, and is now having some joint swelling, which may related to her overall autoimmune condition, may have underlying lupus that she does run in her family. I discussed with her placing her on steroid taper for 12 days, which the patient is agreeable to, which will help with her both her joint swelling as well as her abdominal pain. Discussed cleansing with antibacterial soap, and to avoid shaving in the groin to prevent further abscess formation. Do not feel that she needs antibiotics at this time, as there is no discernible abscess or significant lesion on her exam. Laboratory 03/13/19 03/13/19 03/13/19 15:45 16:29 16:29 WBC 12.9 H RBC 5.52 H Hgb 15.4 Hct 45.5 MCV 83 MCH 27.9 MCHC 33.8 RDW 13.0 Plt Count 388 Lymph % (Auto) 25.8 Dickson % (Auto) 5.0 Eos % (Auto) 3.0 Baso % (Auto) 0.4 Absolute Neuts (auto) 8.5 H Absolute Lymphs (auto) 3.3 Absolute Monos (auto) 0.6 Absolute Eos (auto) 0.4 Absolute Basos (auto) 0.0 Seg Neutrophils % 65.8 Sodium 141.2 Potassium 4.3 Chloride 101 Carbon Dioxide 28 Anion Gap 12 BUN 10 Creatinine 0.70 Est GFR ( Amer) > 60 Est GFR (MDRD) Non-Af > 60 Glucose 77 Calcium 9.7 Total Bilirubin 0.5 Direct Bilirubin 0.1 Neonat Total Bilirubin Not Reportable Neonat Direct Bilirubin Not Reportable Neonat Indirect Bili Not Reportable AST 30 ALT 24 Alkaline Phosphatase 76 Total Protein 8.4 H Albumin 5.1 H Urine Color YELLOW Urine Appearance CLEAR Urine pH 9.0 Ur Specific [place] 1.011 Urine Protein NEGATIVE Urine Glucose (UA) NEGATIVE Urine Ketones NEGATIVE Urine Blood LARGE H Urine Nitrite NEGATIVE Urine Bilirubin NEGATIVE Urine Urobilinogen NEGATIVE Ur Leukocyte Esterase NEGATIVE Urine WBC (Auto) 1 Urine RBC (Auto) >182 Squamous Epi Cells Auto <1 Urine Mucus (Auto) RARE Urine Ascorbic Acid NEGATIVE Urine HCG, Qual NEGATIVE - Vital Signs Vital signs: Temp Pulse Resp BP Pulse Ox 97.8 F 86 16 118/71 99 03/13/19 13:37 03/13/19 13:37 03/13/19 13:37 03/13/19 13:37 03/13/19 13:37 - Laboratory Result Diagrams: 03/13/19 16:29 03/13/19 16:29 Laboratory results interpreted by me: 03/13/19 03/13/19 03/13/19 15:45 16:29 16:29 WBC 12.9 H RBC 5.52 H Absolute Neuts (auto) 8.5 H Total Protein 8.4 H Albumin 5.1 H Urine Blood LARGE H Discharge - Discharge Clinical Impression: Joint pain Qualifiers: Joint pain location: unspecified Qualified Code(s): M25.50 - Pain in unspecified joint Exacerbation of Crohn's disease Qualifiers: Digestive disease complication type: without complication Qualified Code(s): K50.90 - Crohn's disease, unspecified, without complications Condition: Stable Disposition: HOME, SELF-CARE Instructions: Crohn's Disease ([facility]) Additional Instructions: Please take the prescribed steroid taper as directed, and the Zofran as needed for nausea. Please follow-up with a primary care physician as he may need further testing, as some of your symptoms may be related to lupus. Prescriptions: Prednisone 10 mg PO ASDIR #30 tablet Ondansetron [Zofran Odt 4 mg Tablet] 1 tab PO Q8H PRN #15 tab.rapdis PRN Reason: For Nausea/Vomiting Referrals: SHANTEL LANGE MD [ACTIVE STAFF] - Follow up in 3-5 days (primary care. )
[2019-03-13 18:26] LABS: CHLAM PCR NOT DETECTED (NOT DETECT)
== END 2019-03-13 18:18 | disposition home or self-care (01) ==
LOC: ER 13:34
DX: M25.50 Pain in unspecified joint (principal); K50.90 Crohn's disease, unspecified, without complications; M79.89 Other specified soft tissue disorders; R10.9 Unspecified abdominal pain; M25.40 Effusion, unspecified joint; L02.214 Cutaneous abscess of groin; R11.0 Nausea; J45.909 Unspecified asthma, uncomplicated; E11.9 Type 2 diabetes mellitus without complications
CPT/HCPCS: 99283; 36415; 85025; 81025; 80053; 81001; 87491; 87591; S0119

== ENCOUNTER 2020-04-12 20:22 | Emergency (ER) | payer MEDICARE, OTHER ==
--- NOTE | 2020-04-12 20:42 | ER Document Report ---
ED Medical Screen (RME) - General Chief Complaint: Vag Bleeding, +preg <12wks Stated Complaint: VAGINA BLEEDING +10 WEEKS Time Seen by Provider: 04/12/20 20:32 Primary Care Provider: NAINA BRICENO FNP-C [Primary Care Provider] - Follow up as needed Mode of Arrival: Ambulatory Information source: Patient Notes: 39-year-old female presented to ED for complaint of vaginal bleeding during early . She states she is 10 weeks and spotting on and off for last 3 days. She states she is also been severely constipated for the last week. She states she was having really hard stools and then she did not have any stools and now she is having very thin stools. She states she feels full and bloated. She states she did have an ultrasound at [facility] about 2 weeks ago. She states she is 4 para 3. She does have a history of migraines and Crohn's so she always puts off all pain her abdomen is being her Crohn's. She is alert oriented respirations regular nonlabored speaking in full sentences. We will get blood urine and transvaginal ultrasound. I have greeted and performed a rapid initial assessment of this patient. A comprehensive ED assessment and evaluation of the patient, analysis of test results and completion of medical decision making process will be conducted by an additional ED providers. TRAVEL OUTSIDE OF THE [place] IN LAST 30 DAYS: No - Related Data Allergies/Adverse Reactions: doxycycline [Doxycycline] Allergy (Severe, Verified 03/13/19 14:21) Anaphylaxis ciprofloxacin [From Cipro] Allergy (Mild, Verified 03/13/19 14:21) Hives ciprofloxacin HCl [From Cipro] Allergy (Mild, Verified 03/13/19 14:21) Hives levofloxacin [From Levaquin] Allergy (Mild, Verified 03/13/19 14:21) muscle cramps Metronidazole HCl [From Flagyl] Allergy (Mild, Verified 03/13/19 14:21) VOMITING sulfamethoxazole [From Bactrim] Allergy (Mild, Verified 03/13/19 14:21) Hives trimethoprim [From Bactrim] Allergy (Mild, Verified 03/13/19 14:21) Hives metronidazole [Metronidazole] Adverse Reaction (Mild, Verified 03/13/19 14:21) Nausea NSAIDS (Non-Steroidal Anti-Inflamma Adverse Reaction (Verified 03/13/19 14:21) Past Medical History - Social History Family history: Arthritis, CAD, CVA, DM, Hyperlipidemia, Hypertension Pulmonary Medical History: Reports: Hx Asthma, Hx Bronchitis Denies: Hx Tuberculosis Neurological Medical History: Reports: Hx Migraine Endocrine Medical History: Comment Only: Hx Diabetes Mellitus Type 2 - gestational dm Renal/ Medical History: Reports: Hx Ovarian Cysts. Denies: Hx Peritoneal Dialysis GI Medical History: Reports: Hx Crohn's Disease, Hx Gastritis, Hx Gastroesophageal Reflux Disease, Hx Hiatal Hernia, Hx Irritable Bowel Musculoskeltal Medical History: Reports Hx Fibromyalgia Psychiatric Medical History: Reports: Hx Anxiety, Hx Depression Infectious Medical History: Reports: Hx C-Diff Past Surgical History: Reports: Hx Appendectomy - 02/16/2015, Hx Nose Surgery - 2X sinus, Hx Oral Surgery, Hx Tonsillectomy, Other - Sinus surgery - Immunizations Immunizations up to date: Yes Hx Diphtheria, Pertussis, Tetanus Vaccination: Yes - already received Physical Exam - Vital signs Vitals: Temp Pulse Resp BP Pulse Ox 98.6 F 101 H 16 118/70 97 04/12/20 20:27 04/12/20 20:27 04/12/20 20:27 04/12/20 20:27 04/12/20 20:27 Course - Vital Signs Vital signs: Temp Pulse Resp BP Pulse Ox 98.6 F 101 H 16 118/70 97 04/12/20 20:32 04/12/20 20:32 04/12/20 20:32 04/12/20 20:32 04/12/20 20:32 Doctor's Discharge - Discharge Referrals: NAINA BRICENO FNP-C [Primary Care Provider] - Follow up as needed
[2020-04-12] MEDS ORDERED: NORMAL SALINE 1000 ML 1,000 ML IV ONE (20:43)
[2020-04-12] MEDS ORDERED: METOCLOPRAMIDE HCL 10 MG TABLET PO ONE (20:43)
[2020-04-12 21:13] LABS: AMORPHOUS SEDIMENT,URINE TRACE /HPF; APPEARANCE,URINE CLOUDY; BILIRUBIN,URINE NEGATIVE (NEGATIVE); COLOR,URINE YELLOW; GLUCOSE, URINE 150 mg/dL (NEGATIVE); KETONES,URINE NEGATIVE (NEGATIVE); LEUKOCYTE ESTERASE,URINE NEGATIVE (NEGATIVE); NITRITE,URINE NEGATIVE (NEGATIVE); PROTEIN,URINE NEGATIVE (NEGATIVE); URINE SPECIFIC GRAVITY 1.019
--- NOTE | 2020-04-12 21:41 | RADIOLOGY REPORT (SQ) ---
EXAM: First trimester OB ultrasound CLINICAL INDICATION: Cramping and vaginal bleeding COMPARISON: None. TECHNIQUE: First trimester OB ultrasound was performed. FINDINGS: Uterus: The cervix is closed and measures 2.1 cm. The uterus measures 14.2 x 8.0 x 5.5 cm. There is a single oval gestational sac. Early placental formation is seen posteriorly. A single pole is identified with a heart rate of 168 bpm. Merriam-rump length is 5.01 cm which correlates with a gestational age of 11 weeks five days. The estimated delivery date is 10/27/2020. Ovaries and adnexa: The left ovary measures 2.2 x 1.6 x 2.5 cm and has normal color flow. The right ovary is not seen. No adnexal mass. No free fluid. IMPRESSION: Single living intrauterine with estimated gestational age of 11 weeks five days and estimated delivery date of 10/27/2020.
[2020-04-12 21:45] LABS: ABSOLUTE LYMPHOCYTES (AUTO) 2.2 10^3/uL (0.5-4.7); ABSOLUTE MONOCYTES (AUTO) 0.9 10^3/uL (0.1-1.4); ABSOLUTE NEUT (AUTO) 13.4 10^3/uL (1.7-8.2); BASOPHILS % (AUTO) 0.2 % (0-2); HEMATOCRIT 33.3 % (36.0-47.0); HEMOGLOBIN 11.3 g/dL (12.0-15.5); LYMPHOCYTES % (AUTO) 13.1 % (13-45); MEAN CORPUSCULAR HGB CONC 33.8 g/dL (32.0-36.0); MEAN CORPUSCULAR VOLUME 74 fl (80-97); MONOCYTES % (AUTO) 5.5 % (3-13); PLATELET COUNT 432 10^3/uL (150-450); RED BLOOD COUNT 4.51 10^6/uL (3.72-5.28); RED CELL DISTRIBUTION WIDTH 15.2 % (11.5-14.0); SEGMENTED NEUTROPHILS % (AUTO) 81.2 % (42-78); TOTAL CELLS COUNTED % (AUTO) 100 %; WHITE BLOOD COUNT 16.5 10^3/uL (4.0-10.5)
[2020-04-12 22:02] LABS: ALBUMIN 4.5 g/dL (3.5-5.0); ALKALINE PHOSPHATASE 58 U/L (38-126); ANION GAP 12 (5-19); ASPARTATE AMINO TRANSFERASE 20 U/L (14-36); BILIRUBIN,DIRECT 0.1 mg/dL (0.0-0.4); BILIRUBIN,TOTAL 0.3 mg/dL (0.2-1.3); BLOOD UREA NITROGEN 8 mg/dL (7-20); CALCIUM 9.5 mg/dL (8.4-10.2); CARBON DIOXIDE 23 mmol/L (22-30); CHLORIDE 102 mmol/L (98-107); GLUCOSE 104 mg/dL (75-110); POTASSIUM 4.1 mmol/L (3.6-5.0); TOTAL PROTEIN 7.3 g/dL (6.3-8.2)
[2020-04-13] MEDS ORDERED: METOCLOPRAMIDE HCL 10 MG TABLET PO ONE (02:15)
--- NOTE | 2020-04-13 02:54 | ER Document Report ---
ED GI/ - General Chief Complaint: Vag Bleeding, +preg <12wks Stated Complaint: VAGINA BLEEDING +10 WEEKS Time Seen by Provider: 04/12/20 20:32 Mode of Arrival: Ambulatory Notes: Patient is a 39-year-old female, G4, P3 at approximately 11 weeks gestation that comes emergency department for chief complaint of lower abdominal pain that is more noticeable on the left side with cramping sensations and also intermittent very light vaginal spotting for the past 3 days. She denies fever/chills, vaginal discharge, dysuria. She reports constipation not responding to her stool softener, she reports frequent nausea when eating and occasional vomiting. She states she was evaluated by her primary care provider a few days ago and they placed her on prednisone which she has been taking. She is on Protonix along with a stool softener, Tylenol 3 as needed for migraines, scheduled Xanax for anxiety, and she is currently following with maternal- because of her history of Crohn's disease. TRAVEL OUTSIDE OF THE [place] IN LAST 30 DAYS: No - Related Data Allergies/Adverse Reactions: doxycycline [Doxycycline] Allergy (Severe, Verified 03/13/19 14:21) Anaphylaxis ciprofloxacin [From Cipro] Allergy (Mild, Verified 03/13/19 14:21) Hives ciprofloxacin HCl [From Cipro] Allergy (Mild, Verified 03/13/19 14:21) Hives levofloxacin [From Levaquin] Allergy (Mild, Verified 03/13/19 14:21) muscle cramps Metronidazole HCl [From Flagyl] Allergy (Mild, Verified 03/13/19 14:21) VOMITING sulfamethoxazole [From Bactrim] Allergy (Mild, Verified 03/13/19 14:21) Hives trimethoprim [From Bactrim] Allergy (Mild, Verified 03/13/19 14:21) Hives metronidazole [Metronidazole] Adverse Reaction (Mild, Verified 03/13/19 14:21) Nausea NSAIDS (Non-Steroidal Anti-Inflamma Adverse Reaction (Verified 03/13/19 14:21) Past Medical History - General Information source: Patient - Social History Smoking Status: Never Smoker Frequency of alcohol use: None Drug Abuse: None Lives with: Family Family History: Reviewed & Not Pertinent Pulmonary Medical History: Reports: Hx Asthma, Hx Bronchitis Denies: Hx Tuberculosis Neurological Medical History: Reports: Hx Migraine Endocrine Medical History: Comment Only: Hx Diabetes Mellitus Type 2 - gestational dm Renal/ Medical History: Reports: Hx Ovarian Cysts. Denies: Hx Peritoneal Dialysis GI Medical History: Reports: Hx Crohn's Disease, Hx Gastritis, Hx Gastroesophageal Reflux Disease, Hx Hiatal Hernia, Hx Irritable Bowel Musculoskeletal Medical History: Reports Hx Fibromyalgia Psychiatric Medical History: Reports: Hx Anxiety, Hx Depression Infectious Medical History: Reports: Hx C-Diff Past Surgical History: Reports: Hx Appendectomy - 02/16/2015, Hx Nose Surgery - 2X sinus, Hx Oral Surgery, Hx Tonsillectomy, Other - Sinus surgery - Immunizations Immunizations up to date: Yes Hx Diphtheria, Pertussis, Tetanus Vaccination: Yes - already received Hx Pneumococcal Vaccination: 02/13/13 Review of Systems - Review of Systems Constitutional: No symptoms reported EENT: No symptoms reported Cardiovascular: No symptoms reported Respiratory: No symptoms reported Gastrointestinal: See HPI Genitourinary: See HPI Female Genitourinary: See HPI Musculoskeletal: No symptoms reported Skin: No symptoms reported Hematologic/Lymphatic: No symptoms reported Neurological/Psychological: No symptoms reported Physical Exam - Vital signs Vitals: Temp Pulse Resp BP Pulse Ox 98.6 F 101 H 16 118/70 97 04/12/20 20:27 04/12/20 20:27 04/12/20 20:27 04/12/20 20:27 04/12/20 20:27 - Notes Notes: GENERAL: Alert, interacts well. No acute distress. HEAD: Normocephalic, atraumatic. EYES: Pupils equal, round, and reactive to light. Extraocular movements intact. ENT: Oral mucosa moist, tongue midline. Oropharynx unremarkable. Airway patent. NECK: Full range of motion. Supple. Trachea midline. No lymphadenopathy. LUNGS: Clear to auscultation bilaterally, no wheezes, rales, or rhonchi. No respiratory distress. Non-tender chest wall. HEART: Regular rate and rhythm. No murmur ABDOMEN: Patient reports tenderness with palpation of the left mid to lower abdomen although I do not elicit any tenderness with doing so. No rigidity, guarding, or rebound tenderness. Bowel sounds present throughout. GENITOURINARY: Deferred EXTREMITIES: Moves all 4 extremities spontaneously. No edema, normal radial and dorsalis pedis pulses bilaterally. No cyanosis. BACK: no cervical, thoracic, lumbar midline tenderness. No saddle anesthesia, normal distal neurovascular exam. Moves all extremities in full range of motion. NEUROLOGICAL: Alert and oriented x3. Normal speech. Cranial nerves II through XII grossly intact. Strength 5/5 in all extremities. PSYCH: Normal affect, normal mood. SKIN: Warm, dry, normal turgor. No rashes or lesions noted. Course - Re-evaluation Re-evalutation: Patient talkative and well-appearing. Abdomen exam on my evaluation is not concerning. Patient is tolerating p.o. without difficulty. She reports she is not currently vaginally bleeding. Ultrasound shows living intrauterine without signs of complication. Patient's blood type is a positive and has been measured at this facility in the past, RhoGam is not indicated based on her reported vaginal bleeding earlier. CBC shows leukocytosis but this is nonspecific given that patient is taking steroids and also given her benign exam. Vital signs unremarkable. Chemistry unremarkable. Patient is very intent on having an x-ray for her abdomen, she is concerned she has an obstruction. I explained it is very unlikely that she has an obstruction based on her exam and I did not recommend the x-ray because of her early . Patient persisted that she wanted x-rays, finally agreed to do a single view with a KUB. This does show significant constipation but no obstruction. I discussed with patient. Patient refused an enema but states she wants to be prescribed stool softeners and an enema for home, she was tried later stool softeners outpatient therefore she will be given lactulose after we discussed this. Patient has excellent follow-up with both maternal- and SOURCING COORDINATOR along with her primary care, discussed return precautions in detail, patient states understanding and agreement. Stable and well-appearing at time of discharge. - Vital Signs Vital signs: Temp Pulse Resp BP Pulse Ox 98.1 F 79 18 118/61 100 04/12/20 23:50 04/13/20 05:05 04/13/20 05:05 04/13/20 05:05 04/13/20 05:05 - Laboratory Result Diagrams: 04/12/20 21:30 04/12/20 21:30 Laboratory results interpreted by me: 04/12/20 04/12/20 04/12/20 20:40 21:30 21:30 WBC 16.5 H Hgb 11.3 L Hct 33.3 L MCV 74 L MCH 25.0 L RDW 15.2 H Absolute Neuts (auto) 13.4 H Seg Neutrophils % 81.2 H Creatinine 0.51 L Urine Glucose (UA) 150 H Urine Urobilinogen 2.0 H Urine Ascorbic Acid 40 H Discharge - Discharge Clinical Impression: Vaginal bleeding affecting early Abdominal pain Qualifiers: Abdominal location: generalized Qualified Code(s): R10.84 - Generalized abdominal pain Constipation Qualifiers: Constipation type: unspecified constipation type Qualified Code(s): K59.00 - Constipation, unspecified Condition: Stable Disposition: HOME, SELF-CARE Additional Instructions: Your ultrasound shows a living in the uterus without any concerning findings. Your workup shows stool retention but no other concerning findings are noted at this time. I recommend pelvic rest due to the bleeding. Avoid any significant physical activity including lifting, running, sexual intercourse until cleared by SOURCING COORDINATOR. You have been prescribed lactulose for your constipation, you can also use the Fleet enema, make sure you stay hydrated, continue your current medications although I recommend you avoid Tylenol #3 because this will worsen your constipation. Return if you worsen including severe worsening pain, uncontrolled vomiting, fever/chills, heavy bleeding, dizziness, passing out, or any other concerning or worsening symptoms. Prescriptions: Na Phos,M-B/Na Phos,Di-Ba [Fleet Enema (Adult) 133 ml] [address] DAILY PRN #2 enema PRN Reason: Lactulose 10 gm PO BID PRN #1 bottle PRN Reason:
--- NOTE | 2020-04-13 04:12 | RADIOLOGY REPORT (SQ) ---
CLINICAL HISTORY: Crohns, ?obstruction COMPARISON: 02/07/2016. TECHNIQUE: XR ABDOMEN 1 VIEW (KUB) 04/13/2020 2:53 AM CDT FINDINGS: There is moderate amount of stool throughout the colon. There are no abnormal radiopaque foreign bodies or abnormal calcifications. Osseous structures are grossly unremarkable. IMPRESSION: Constipation.
[2020-04-13 05:11] VITALS: BP 118/61
== END 2020-04-13 05:12 | disposition home or self-care (01) ==
LOC: ER 20:22
DX: O20.9 Hemorrhage in early pregnancy, unspecified (principal); O99.619 Diseases of the digestive system complicating pregnancy, unspecified trimester; K59.00 Constipation, unspecified; K21.9 Gastro-esophageal reflux disease without esophagitis; O21.9 Vomiting of pregnancy, unspecified; O99.119 Other diseases of the blood and blood-forming organs and certain disorders involving the immune mechanism complicating pregnancy, unspecified trimester; D72.829 Elevated white blood cell count, unspecified; O26.899 Other specified pregnancy related conditions, unspecified trimester; R10.84 Generalized abdominal pain; O99.340 Other mental disorders complicating pregnancy, unspecified trimester; F41.9 Anxiety disorder, unspecified; O99.519 Diseases of the respiratory system complicating pregnancy, unspecified trimester; J45.909 Unspecified asthma, uncomplicated; Z3A.00 Weeks of gestation of pregnancy not specified; Z79.899 Other long term (current) drug therapy; Z87.19 Personal history of other diseases of the digestive system; Z87.892 Personal history of anaphylaxis; Z88.1 Allergy status to other antibiotic agents
CPT/HCPCS: 99285; 96360; 96361; 36415; 87086; 85025; 80053; 81001; 74018; 76801; A9270; J7030

== ENCOUNTER 2020-06-01 15:50 | Emergency (ER) | payer MEDICARE, OTHER ==
--- NOTE | 2020-06-01 17:02 | ER Document Report ---
ED Medical Screen (RME) - General Chief Complaint: Leg Pain Stated Complaint: LEG PAIN/SWELLING/SOB Time Seen by Provider: 06/01/20 16:58 Primary Care Provider: GIN MATHEWS PA-C [Primary Care Provider] - Follow up as needed Notes: Patient presents complaining of left lower extremity pain that started today. Patient feels as though she has muscle cramps. Patient also reports that she is 18 weeks and her doctor was concerned that she needed to be evaluated for possible DVT. I have greeted and performed a rapid initial assessment of this patient. A comprehensive ED assessment and evaluation of the patient, analysis of test results and completion of the medical decision making process will be conducted by additional ED providers. TRAVEL OUTSIDE OF THE [place] IN LAST 30 DAYS: No - Related Data Allergies/Adverse Reactions: doxycycline [Doxycycline] Allergy (Severe, Verified 06/01/20 16:51) Anaphylaxis ciprofloxacin [From Cipro] Allergy (Mild, Verified 06/01/20 16:51) Hives ciprofloxacin HCl [From Cipro] Allergy (Mild, Verified 06/01/20 16:51) Hives levofloxacin [From Levaquin] Allergy (Mild, Verified 06/01/20 16:51) muscle cramps Metronidazole HCl [From Flagyl] Allergy (Mild, Verified 06/01/20 16:51) VOMITING sulfamethoxazole [From Bactrim] Allergy (Mild, Verified 06/01/20 16:51) Hives trimethoprim [From Bactrim] Allergy (Mild, Verified 06/01/20 16:51) Hives metronidazole [Metronidazole] Adverse Reaction (Mild, Verified 06/01/20 16:51) Nausea NSAIDS (Non-Steroidal Anti-Inflamma Adverse Reaction (Verified 06/01/20 16:51) Home Medications: Tylenol #3 Past Medical History - Social History Chew tobacco use (# tins/day): No Drug Abuse: None Family history: Arthritis, CAD, CVA, DM, Hyperlipidemia, Hypertension Pulmonary Medical History: Reports: Hx Asthma, Hx Bronchitis Denies: Hx Tuberculosis Neurological Medical History: Reports: Hx Migraine Endocrine Medical History: Comment Only: Hx Diabetes Mellitus Type 2 - gestational dm Renal/ Medical History: Reports: Hx Ovarian Cysts. Denies: Hx Peritoneal Dialysis GI Medical History: Reports: Hx Crohn's Disease, Hx Gastritis, Hx Gastroesophageal Reflux Disease, Hx Hiatal Hernia, Hx Irritable Bowel Musculoskeltal Medical History: Reports Hx Fibromyalgia Psychiatric Medical History: Reports: Hx Anxiety, Hx Depression Infectious Medical History: Reports: Hx C-Diff Past Surgical History: Reports: Hx Appendectomy - 02/16/2015, Hx Nose Surgery - 2X sinus, Hx Oral Surgery, Hx Tonsillectomy, Other - Sinus surgery - Immunizations Immunizations up to date: Yes Hx Diphtheria, Pertussis, Tetanus Vaccination: Yes - already received Physical Exam - Vital signs Vitals: Temp Pulse Resp BP Pulse Ox 98.4 F 93 18 116/66 100 06/01/20 16:16 06/01/20 16:16 06/01/20 16:16 06/01/20 16:16 06/01/20 16:16 - General General appearance: Appears well, Alert Notes: Left calf tenderness Course - Vital Signs Vital signs: Temp Pulse Resp BP Pulse Ox 98.4 F 93 18 116/66 100 06/01/20 16:16 06/01/20 16:16 06/01/20 16:16 06/01/20 16:16 06/01/20 16:16 Doctor's Discharge - Discharge Referrals: GIN MATHEWS PA-C [Primary Care Provider] - Follow up as needed
[2020-06-01 18:00] LABS: ABSOLUTE BASOPHILS # (AUTO) 0.1 10^3/uL (0.0-0.2); ABSOLUTE EOSINOPHILS # (AUTO) 0.4 10^3/uL (0.0-0.6); ABSOLUTE LYMPHOCYTES (AUTO) 2.8 10^3/uL (0.5-4.7); ABSOLUTE NEUT (AUTO) 9.7 10^3/uL (1.7-8.2); BASOPHILS % (AUTO) 0.7 % (0-2); LYMPHOCYTES % (AUTO) 19.9 % (13-45); MEAN CORPUSCULAR HEMOGLOBIN 23.6 pg (27.0-33.4); MEAN CORPUSCULAR HGB CONC 32.2 g/dL (32.0-36.0); MEAN CORPUSCULAR VOLUME 73 fl (80-97); MONOCYTES % (AUTO) 7.1 % (3-13); PLATELET COUNT 328 10^3/uL (150-450); RED BLOOD COUNT 4.64 10^6/uL (3.72-5.28); RED CELL DISTRIBUTION WIDTH 16.1 % (11.5-14.0); SEGMENTED NEUTROPHILS % (AUTO) 69.3 % (42-78); TOTAL CELLS COUNTED % (AUTO) 100 %
[2020-06-01 18:17] LABS: ALBUMIN 3.9 g/dL (3.5-5.0); ALKALINE PHOSPHATASE 65 U/L (38-126); ANION GAP 8 (5-19); ASPARTATE AMINO TRANSFERASE 25 U/L (14-36); BILIRUBIN,DIRECT 0.1 mg/dL (0.0-0.4); BILIRUBIN,TOTAL 0.3 mg/dL (0.2-1.3); BLOOD UREA NITROGEN 7 mg/dL (7-20); CARBON DIOXIDE 24 mmol/L (22-30); CHLORIDE 104 mmol/L (98-107); GLUCOSE 97 mg/dL (75-110); POTASSIUM 3.8 mmol/L (3.6-5.0); TOTAL PROTEIN 6.9 g/dL (6.3-8.2)
--- NOTE | 2020-06-01 19:16 | RADIOLOGY REPORT (SQ) ---
EXAM DESCRIPTION: VENOUS UNILATERAL LOWER IMAGES COMPLETED DATE/TIME: 06/01/2020 6:32 pm REASON FOR STUDY: LLE pain COMPARISON: None. TECHNIQUE: Dynamic and static donohue scale and color images acquired of the left leg venous system. Se lected spectral images acquired with additional compression and augmentation maneuvers. The contralat eral common femoral vein and saphenofemoral junction were also imaged. Images stored on PACS. LIMITATIONS: None. FINDINGS: COMMON FEMORAL: Normal phasicity, compression and augmentation. No visualized echogenic ma terial on donohue scale. No defects on color images. FEMORAL: Normal compression and augmentation. No visualized echogenic material on donohue scale. No defe cts on color images. POPLITEAL: Normal compression, augmentation. No visualized echogenic material on donohue scale. No defec ts on color images. CALF VESSELS: Normal compression, augmentation. No visualized echogenic material on donohue scale. No de fects on color images. GSV and SSV: Normal compression, augmentation. No visualized echogenic material on donohue scale. No def ects on color images. ANY DEEP VENOUS INSUFFICIENCY: Not evaluated. ANY EVIDENCE OF POPLITEAL CYST: No. OTHER: No other significant finding. CONTRALATERAL COMMON FEMORAL VEIN AND SAPHENOFEMORAL JUNCTION: Normal phasicity, compression and augmentation. No visualized echogenic material on donohue scale. No de fects on color images. IMPRESSION: NO EVIDENCE DVT OR SVT IN THE LEFT LEG. TECHNICAL DOCUMENTATION: JOB ID: [id number] [employer]- All Rights Reserved Reading location - IP/workstation name: [email or web address]
[2020-06-01] MEDS ORDERED: PREDNISONE 20 MG TABLET PO ONE (21:19)
--- NOTE | 2020-06-01 21:27 | ER Document Report ---
ED General - General Chief Complaint: Leg Pain Stated Complaint: LEG PAIN/SWELLING/SOB Time Seen by Provider: 06/01/20 16:58 Primary Care Provider: GIN MATHEWS PA-C [Primary Care Provider] - Follow up as needed TRAVEL OUTSIDE OF THE [place] IN LAST 30 DAYS: No - HPI Context: Time:[id number] Chief Complaint: [Left lower extremity pain] [39-year-old female, aborta 0, 18 weeks , with history of sciatica presents complaining of left lower extremity pain that she states started today. Patient describes the pain is a shooting pain that goes down her left buttock and the back of her leg especially when she is walking and the pain also moves around to her left lateral thigh. Patient denies change in bowel habits or urinary habits. Patient denies recent falls or trauma. Patient states she saw one of the care providers [facility] at [facility] today and they sent her over to the emergency department to have an ultrasound done of her left lower extremity to rule out a DVT. Patient denies prior problems with use of prednisone and denies history of peptic ulcer disease. ] History obtained from [patient] Symptoms began:[Today] Onset: [Sudden] Timing: [Sudden] Quality: [Sharp] Intensity: [Severe] Location: [Left posterior lower extremity and left lateral thigh] Radiation: [Pain radiates from left buttock around to left lateral thigh and down the back of left posterior lower extremity] [The pain does not migrate to a new location.] Aggravating factors: Left hip movement and walking Relieving factors: [none] [Denies] SOB [Denies] nausea [Denies] vomiting [Denies] sweats [Denies] fever [Denies] cough - Related Data Allergies/Adverse Reactions: doxycycline [Doxycycline] Allergy (Severe, Verified 06/01/20 16:51) Anaphylaxis ciprofloxacin [From Cipro] Allergy (Mild, Verified 06/01/20 16:51) Hives ciprofloxacin HCl [From Cipro] Allergy (Mild, Verified 06/01/20 16:51) Hives levofloxacin [From Levaquin] Allergy (Mild, Verified 06/01/20 16:51) muscle cramps Metronidazole HCl [From Flagyl] Allergy (Mild, Verified 06/01/20 16:51) VOMITING sulfamethoxazole [From Bactrim] Allergy (Mild, Verified 06/01/20 16:51) Hives trimethoprim [From Bactrim] Allergy (Mild, Verified 06/01/20 16:51) Hives metronidazole [Metronidazole] Adverse Reaction (Mild, Verified 06/01/20 16:51) Nausea NSAIDS (Non-Steroidal Anti-Inflamma Adverse Reaction (Verified 06/01/20 16:51) Home Medications: Tylenol #3 Past Medical History - General Information source: Patient - Social History Smoking Status: Never Smoker Chew tobacco use (# tins/day): No Drug Abuse: None Family History: Reviewed & Not Pertinent Patient has homicidal ideation: No Pulmonary Medical History: Reports: Hx Asthma, Hx Bronchitis Denies: Hx Tuberculosis Neurological Medical History: Reports: Hx Migraine Endocrine Medical History: Comment Only: Hx Diabetes Mellitus Type 2 - gestational dm Renal/ Medical History: Reports: Hx Ovarian Cysts. Denies: Hx Peritoneal Dialysis GI Medical History: Reports: Hx Crohn's Disease, Hx Gastritis, Hx Gastroesophageal Reflux Disease, Hx Hiatal Hernia, Hx Irritable Bowel Musculoskeletal Medical History: Reports Hx Fibromyalgia Psychiatric Medical History: Reports: Hx Anxiety, Hx Depression Infectious Medical History: Reports: Hx C-Diff Past Surgical History: Reports: Hx Appendectomy - 02/16/2015, Hx Nose Surgery - 2X sinus, Hx Oral Surgery, Hx Tonsillectomy, Other - Sinus surgery - Immunizations Immunizations up to date: Yes Hx Diphtheria, Pertussis, Tetanus Vaccination: Yes - already received Hx Pneumococcal Vaccination: 02/13/13 Review of Systems - Review of Systems Notes: Review of systems as below unless otherwise stated in HPI. CONSTITUTIONAL [No] fever, [No] chills. EYES [No] eye pain. ENT [No] URI symptoms, [No] sore throat, [No] ear pain. CARDIOVASCULAR [No] chest pain, [No] palpitations, [No] edema. RESPIRATORY [No] Cough, [No] SOB, [No] wheezing. GASTROINTESTINAL [No] abdominal pain, [No] nausea, [No] Diarrhea, [No] Vomiting, [No] constipation, [No] melena, [No] rectal bleeding. GENITOURINARY [No] dysuria, [No] urinary frequency, [No] hematuria, [No] urinary urgency, [No] vaginal discharge, [No] vaginal bleeding. MUSCULOSKELETAL [No] Back pain. Positive left lower extremity pain SKIN [No] Rash. NEUROLOGIC [No] Headache, [No] recent seizures, [No] paralysis,[No] parathesias. ENDOCRINE [No] polyuria. HEMO/LYMPATIC [No] easy brusing PSYCHIATRIC [No] depression. Physical Exam - Vital signs Vitals: Temp Pulse Resp BP Pulse Ox 98.4 F 93 18 116/66 100 06/01/20 16:16 06/01/20 16:16 06/01/20 16:16 06/01/20 16:16 06/01/20 16:16 - Notes Notes: CONSTITUTIONAL [Vital signs reviewed, Patient appears slightly uncomfortable, Alert and oriented X 3, Normal stature.] HEAD [Atraumatic, Normocephalic.] EYES [Eyes are normal to inspection, No discharge from eyes, Extraocular muscles intact, Sclera are normal, Conjunctiva are normal.] ENT [External ears normal to inspection, Nose examination normal, Mouth normal to inspection.] NECK [Normal ROM, No jugular venous distention, No meningeal signs, ] RESPIRATORY CHEST [Chest is nontender, Breath sounds normal, No respiratory distress.] CARDIOVASCULAR [RRR, No murmurs, Normal S1 S2, No rub, No gallop.] ABDOMEN [Abdomen is nontender, No pulsatile masses, No other masses, Bowel sounds normal, No distension, No peritoneal signs, No hernias.] BACK [There is no CVA Tenderness, There is no tenderness to palpation, Normal inspection.] UPPER EXTREMITY [Inspection normal, No cyanosis, No clubbing, No edema, LOWER EXTREMITY No cyanosis, No clubbing, No edema, No calf tenderness, patient does have a positive straight leg raise of her left lower extremity at approximately 45 degrees NEURO [No focal motor deficits, No focal sensory deficits, Speech normal.] SKIN [Skin is warm, Skin is dry, Skin is normal color.] LYMPHATIC [No adenopathy in neck.] PSYCHIATRIC [Normal affect. ] Course - Re-evaluation Re-evalutation: 06/01/20 21:29 Results of ED MSE discussed with patient. All questions were answered prior to discharge. Emergency signs and symptoms, reasons to return to the emergency department discussed with patient. 06/01/20 21:36 Differential diagnosis, DVT, sciatica, hip strain, discomfort of Medical decision making: Symptoms seem most consistent with exacerbation of sciatica. Patient has a positive straight leg raise on the left side, states these symptoms are similar to her prior sciatica exacerbations and has a negative DVT study. - Vital Signs Vital signs: Temp Pulse Resp BP Pulse Ox 98.4 F 93 18 116/66 100 06/01/20 16:16 06/01/20 16:16 06/01/20 16:16 06/01/20 16:16 06/01/20 16:16 - Laboratory Results Result Diagrams: 06/01/20 17:43 06/01/20 17:43 Laboratory Results Interpreted: 06/01/20 06/01/20 17:43 17:43 WBC 14.0 H Hgb 11.0 L Hct 34.0 L MCV 73 L MCH 23.6 L RDW 16.1 H Absolute Neuts (auto) 9.7 H Sodium 135.7 L Creatinine 0.50 L Critical Laboratory Results Reviewed: No Critical Results Attending or Supervising Physician who Reviewed Labs: LD LOERA IV - Radiology Results Critical Radiology Results Reviewed: No Critical Results - Left lower extremity ultrasound negative for DVT or SVT Attending or Supervising Physician who Reviewed Radiology: LD LOERA IV - Consults Dr. Charo Norwood, [facility], CONSULTING PRACTICE MANAGER [facility] Time consulted: 21:19 - Dr. Norwood agreed with plan to treat patient with 60 mg daily of prednisone for total of 5 days. Reason for consultation: 06/01/20 21:38 Sciatica in a patient Discharge - Discharge Clinical Impression: Left sided sciatica Condition: Stable Disposition: HOME, SELF-CARE Additional Instructions: Return to the Emergency Department without delay if any worse. HOME CARE INSTRUCTIONS & INFORMATION: Thank you for choosing us for your m edical needs. We hope you're satisfied with the care you received. After you leave, you must properly care for your problem and, at the same time, observe its progress. Any condition can change. Some illnesses can change rapidly over hours or days. If your condition worsens, return to the Emergency Department or see your physician promptly. ABOUT YOUR X-RAYS AND EKG'S: If you had an EKG or X-rays taken, they have been read by the Emergency Physician. The X-rays and EKG's will also be read by a Radiologist or Digital Computer Systems Analyst within 24 hours. If discrepancies are noted, you will be notified by telephone. Please be certain the ED has a correct telephone number & address where you can be reached. Also, realize that some fractures or abnormalities do not show up on initial X-rays. If your symptoms continue, see your physician. ABOUT YOUR LABORATORY TEST: If you had laboratory tests, the results have been reviewed by the Emergency Physician. Some test results (for example cultures) may not be available for several days. You will be contacted if any test result shows you need additional treatment. Please be certain the ED has a correct telephone number and address where you can be reached. ABOUT YOUR MEDICATIONS: You will receive instructions on how to take your medicine on the prescription label you receive. Additional information may be provided by the Pharmacy. If you have questions afterwards, call the ED for clarification or further instructions. Some prescribed medications may cause drowsiness. Do not perform tasks such as driving a car or operating machinery without consulting your Pharmacist. If you feel you need a refill of pain medication, your condition will need re-evaluation. Please do not call for a refill of any medication. ABOUT YOUR SIGNATURE: Signature of this document acknowledges to followin. Understanding that you received emergency treatment and that you may be released before al medical problems are known or treated. Please be certain the ED has a correct phone number & address where you can be reached. 2. Acknowledgement that you will arrange for follow-up care as recommended. 3. Authorization for the Emergency Physician to provide information to your follow-up Physician in order to maximize your care. AT ANY TIME, IF YOUR SYMPTOMS CHANGE SIGNIFICANTLY OR WORSEN OR YOU DEVELOP NEW SYMPTOMS, RETURN TO THE EMERGENCY DEPARTMENT IMMEDIATELY FOR RE-EVALUATION. OUR GOAL IS TO PROVIDE EXCELLENT MEDICAL CARE! WE HOPE THAT WE HAVE MET YOUR EXPECTATIONS DURING YOUR EMERGENCY DEPARTMENT VISIT AND THAT YOU FEEL YOU HAVE RECEIVED EXCELLENT CARE! Sciatica Your symptoms suggest "sciatica." The pain of sciatica typically radiates down the leg. Numbness in the foot or calf may also occur. Sciatica is caused by irritation of the sciatic nerve or its branches. The irritation can be due to a herniated disk in the spine, swelling and inflammation in the muscles surrounding the sciatic nerve, or direct injury of the nerve itself. Most cases of sciatica will resolve with medical treatment. Bed rest is usually recommended initially. Surgery is only necessary when the condition will not improve with rest and antiinflammatory medication. Muscle relaxers are often given if muscle soreness is present. A CAT scan of the back may be performed if a herniated disk is suspected. Re-examination is necessary if you develop increasing numbness, localized weakness in the foot or ankle, or if the pain does not respond to rest. Prescriptions: Prednisone [Deltasone 20 mg Tablet] 3 tab PO DAILY 4 Days #12 tablet Referrals: GIN MATHEWS PA-C [Primary Care Provider] - Follow up as needed
[2020-06-01 22:28] VITALS: BP 109/63
== END 2020-06-01 22:30 | disposition home or self-care (01) ==
LOC: ER 15:50
DX: O99.891 Other specified diseases and conditions complicating pregnancy (principal); M54.32 Sciatica, left side; O99.512 Diseases of the respiratory system complicating pregnancy, second trimester; J45.909 Unspecified asthma, uncomplicated; Z79.899 Other long term (current) drug therapy; Z86.32 Personal history of gestational diabetes; Z87.892 Personal history of anaphylaxis; Z88.1 Allergy status to other antibiotic agents; Z3A.18 18 weeks gestation of pregnancy
CPT/HCPCS: 99284; 36415; 85025; 80053; 93971; A9270; J7512